=== PATIENT | female | born 1970 | race Caucasian/White ===

== ENCOUNTER 2021-01-25 14:47 | Outpatient (REF) | payer MEDICAID, SELFPAY ==
--- NOTE | ~2021-01-25 | XR_ITS ---
EXAMINATION: XR HIP, LEFT CLINICAL INFORMATION: Pain COMPARISON: None TECHNIQUE: Two views of the left hip. FINDINGS: Bones and soft tissues are normal. No fracture. Alignment is anatomic. Hip joint space is maintained. XR/XR hip LT min 2V IMPRESSION: Normal left hip.
[2021-01-25 16:15] LABS: MANUAL DIFF FLAG NO
[2021-01-25 16:20] LABS: Basophils Percent Auto 0.5 % (0-2); Eosinophils Percent Auto 0.4 % (0-4); Hematocrit 40.7 % (37-47); Hemoglobin 13.7 g/dl (12.0-16.0); Imm Gran Abs Auto 0.01 X10*3/uL (0.00-0.03); Imm Gran Pct Auto 0.1 % (0.0-0.4); Lymphocytes Absolute Auto 1.4 X10*3/uL (1.2-4.9); Lymphocytes Percent Auto 18.3 % (20-40); Mean Corpuscular HGB Conc 33.7 g/dl (31.0-35.0); Mean Corpuscular Hemoglobin 36.2 pg (27.0-33.0); Mean Corpuscular Volume 107.7 fL (80-98); Mean Platelet Volume 10.8 fL (9.4-12.3); Monocytes Absolute Auto 0.9 X10*3/uL (0.1-1.2); Monocytes Percent Auto 11.4 % (2-11); Neutrophils Absolute Auto 5.4 X10*3/uL (2.0-8.3); Neutrophils Percent Auto 69.3 % (45-73); Platelet Count 300 X10*3/uL (160-400); Red Blood Count 3.78 X10*6/uL (4.20-5.50); Red Cell Distribution Width 12.8 % (11.0-16.0); White Blood Count 7.7 X10*3/uL (4.8-10.8)
[2021-01-25 16:31] LABS: Estimated Average Glucose 82 mg/dL; Hemoglobin A1c % 4.5 %
[2021-01-25 16:53] LABS: Alanine Aminotransferase 33 U/L (0-31); Albumin Level 4.2 g/dL (3.5-5.0); Alkaline Phosphatase 50 U/L (39-117); Anion Gap 17 (12-20); Aspartate Amino Transferase 45 U/L (5-31); Bilirubin Direct 0.4 mg/dL (0.0-0.5); Bilirubin Total 0.7 mg/dL (0.0-1.0); Blood Urea Nitrogen 5 mg/dL (9-16); Calcium 10.1 mg/dL (8.4-10.2); Carbon Dioxide 25 mmol/L (22-29); Chloride 98 mmol/L (96-108); Estimated Glomerular Filt Rate > 60; Glucose Random 96 mg/dL (60-115); Potassium 4.5 mmol/L (3.3-5.1); Sodium 135 mmol/L (135-145); Total Protein 7.2 g/dL (6.5-8.0)
[2021-01-25 17:07] LABS: TSH reflex Free T4 1.26 uIU/mL (0.32-4.0); Vitamin D 25-OH Total 14.3 ng/mL (>30)
== END 2021-01-25 14:48 | disposition home or self-care (01) ==
LOC: HO.XRAY 14:47
PROVIDERS: PCP Internal Medicine; Visit Provider Internal Medicine
DX: Z00.00 Encounter for general adult medical examination without abnormal findings (principal); M25.552 Pain in left hip
CPT/HCPCS: 36415; 73502; 80048; 80076; 82306; 83036; 84443; 85025

== ENCOUNTER 2021-02-21 09:08 | Outpatient (REF) | payer MEDICAID, SELFPAY ==
--- NOTE | ~2021-02-21 | US_ITS ---
EXAMINATION: US ABDOMEN COMPLETE CLINICAL INFORMATION: Fatty liver. COMPARISON: None TECHNIQUE: Real-time imaging of the abdominal viscera. FINDINGS: PANCREAS: The visualized portion of the pancreas head and body are normal, portion of the pancreatic body and tail, not visualized are obscured by bowel gas. ABDOMINAL AORTA: The proximal, mid, and distal segments are normal in caliber. INFERIOR VENA CAVA: Visualized portions are normal. LIVER: Diffusely echogenic liver suggesting hepatic steatosis. The liver is normal in size. The liver contour is normal. No focal hepatic lesion. There is no intrahepatic biliary duct dilatation seen. GALLBLADDER: Normal. The gallbladder is physiologically distended without evidence of stones, sludge, polyps, wall thickening or pericholecystic fluid. COMMON BILE DUCT: Normal in caliber measuring 0.3 cm in diameter. RIGHT KIDNEY: Normal. No hydronephrosis. No renal calculi or focal parenchymal lesions. The kidney measures 10.0 cm in maximum dimension. LEFT KIDNEY: Normal. No hydronephrosis. No renal calculi or focal parenchymal lesions. The kidney measures 10.3 cm in maximum dimension. SPLEEN: Normal. The spleen measures 6.8 cm in maximum dimension. FREE FLUID: None. US/US abdomen complete IMPRESSION: Diffusely echogenic liver suggesting hepatic steatosis. Ultrasound otherwise normal. No evidence of gallbladder disease or gallstones. No ascites.
== END 2021-02-21 09:09 | disposition home or self-care (01) ==
LOC: HO.US 09:08
PROVIDERS: Visit Provider Internal Medicine
DX: K76.0 Fatty (change of) liver, not elsewhere classified (principal)
CPT/HCPCS: 76700

== ENCOUNTER 2023-04-18 12:28 | Inpatient (IN) | payer MEDICAID, SELFPAY ==
--- NOTE | ~2023-04-18 | XR_ITS ---
EXAMINATION: XR CHEST CLINICAL INFORMATION: Aspiration pneumonia. COMPARISON: 04/18/2023 chest radiograph. TECHNIQUE: Frontal view of the chest was obtained. FINDINGS: No significant abnormality is noted involving the heart, lungs, mediastinum, bony thorax or soft tissues. XR/XR chest 1V IMPRESSION: No acute cardiopulmonary process.
--- NOTE | ~2023-04-18 | XR_ITS ---
EXAMINATION: XR CHEST CLINICAL INFORMATION: Fatigue. COMPARISON: None available. TECHNIQUE: Frontal view of the chest was obtained. FINDINGS: Normal appearance of the cardiomediastinal silhouette. Left basilar airspace opacities with trace amount of left-sided pleural fluid. No pneumothorax. Bony thorax is intact. XR/XR chest 1V IMPRESSION: Findings suggesting left lower lobe subsegmental atelectasis versus aspiration or early infiltrates. Trace amount of left-sided pleural fluid. A follow-up imaging after treatment is recommended to ensure appropriate resolution.
--- NOTE | ~2023-04-18 | US_ITS ---
EXAMINATION: US SURVEY ABDOMEN CLINICAL INFORMATION: Evaluate for ascites. COMPARISON: None TECHNIQUE: Garcia-scale ultrasound survey of abdomen. US/US abdomen limited FINDINGS/IMPRESSION: Moderate volume of ascites present. Fluid is anechoic.
--- NOTE | ~2023-04-18 | US_ITS ---
EXAMINATION: US ABDOMEN LIMITED CLINICAL INFORMATION: Jaundice. COMPARISON: February 2021 TECHNIQUE: Real-time imaging of the right upper quadrant abdominal viscera. FINDINGS: LIVER: The liver is enlarged, Increased echogenicity of the liver parenchyma, this can be seen in the setting of hepatic steatosis or liver parenchymal disease. There is reversed flow hepatofugal flow in the portal vein suggesting underlying portal hypertension. GALLBLADDER: Normal. The gallbladder is physiologically distended, there are no bladder sludge, without evidence of stones, polyps, wall thickening or pericholecystic fluid. COMMON BILE DUCT: Normal in caliber measuring 1 cm in diameter. FREE FLUID: None. US/US abdomen limited IMPRESSION: *Hepatomegaly. *Increased echogenicity of the liver parenchyma, this can be seen in the setting of hepatic steatosis or liver parenchymal disease. *Reversed flow in the portal vein hepatofugal flow, suggesting portal hypertension. *Gallbladder sludge.
--- NOTE | ~2023-04-18 | US_ITS ---
Paracentesis INDICATIONS: Recurrent ascites After informed written consent was obtained an official timeout was performed immediately prior to the procedure. PROCEDURE: Under ultrasound guidance a 5 [place] Yueh catheter was placed into the left lower quadrant. 3 L of clear fluid was drained. US/US paracentesis abd w/image IMPRESSION: Paracentesis under ultrasound guidance with 3 L of fluid drained
--- NOTE | ~2023-04-18 | XR_ITS ---
EXAMINATION: XR CHEST CLINICAL INFORMATION: Fever. History of aspiration. COMPARISON: Previous chest x-ray most recent from earlier the same day TECHNIQUE: Frontal view of the chest was obtained. FINDINGS: The cardiac and mediastinal contours are stable. The lung volumes are low. There is atelectasis or small infiltrates at both lung bases. There may be a small left pleural effusion. There is no right pleural effusion. There is no pneumothorax. XR/XR chest 1V IMPRESSION: Low lung volumes. Atelectasis or small infiltrates at the lung bases. Question small left pleural effusion.
[2023-04-18 12:31] VITALS: BP 106/72; PULSE 95; RESP 18; TEMP 36.8; O2SAT 99; BMI 23.7
--- NOTE | 2023-04-18 12:32 | ED.GENADULT ---
HPI - General Adult General Chief complaint: Abdominal Pain Stated complaint: bloating in abd Time Seen by Provider: 04/18/23 17:28 Source: patient and family Mode of arrival: ambulatory Limitations: no limitations History of Present Illness HPI narrative: 52 yo female stopped drinking 2 weeks ago and at the same time states she suffered from heat exhaustion - she started to develop abdominal bloating and yellowing of her eyes that has worsened. she no longer drinks, no tylenol and no other ingestions such as mushroom use. she comes in as she has worsening abdominal bloating and cannot take the pain any longer of the abdomen. she has never had this happen before she was drinking up to 5+ nips a day denies seizure hx or shaking in the past. MD complaint: bloating, jaundice Onset (ago): week(s) (2) Location: abdomen Radiation: non-radiation Severity: moderate Quality: aching, dull and constant Pain Consistency: constant Relieving factors: none Exacerbating factors: movement Associated symptoms: other (nausea and malaise) Treatments prior to arrival: none Related Data Home Medications Medication Instructions Recorded Confirmed No Known Home Meds 04/18/23 04/18/23 Allergies Allergy/AdvReac Type Severity Reaction Status Date / Time No Known Allergies Allergy Verified 04/18/23 12:36 Review of Systems Review of Systems: Constitutional : No Weight loss, No Fever, No Chills, pos fatigue, pos malaise ENT/Mouth : No sore throat, No Rhinorrhea Eyes: No Swelling, No Redness Cardiovascular : No Chest Pain, No SOB, NoEdema Respiratory : No Cough, No Sputum, No Wheezing Gastrointestinal : Positive Nausea, no Vomiting, no Diarrhea, positive abdominal Pain, No Hematochezia, No Melena Genitourinary : No Dysuria, No Urinary Frequency, No Hematuria, No Urgency Musculoskeletal : No joint pain, No Myalgias, No Joint Swelling Skin : No Skin Lesions, No rash Neuro : No Weakness, No Numbness, No Dizziness, No Headache Psych : No Anxiety/Panic, No Depression Heme/Lymph: No Bruising, No Lymphadenopathy Endocrine : No Polyuria, No Polydipsia All other systems reviewed and are negative. [facility] Past Medical History Attestation statement: The following information was validated with the patient. Medical History Alcoholism Social History Social History Alcohol intake: former Smoked in Last 30 Days: No Use of substances other than those prescribed or required for medical reasons: No Advance Directives: No Advance Directives Information Provided: No Patient : No Physical Exam ED Vital Signs: Vital Signs - 24 hr 04/18/23 12:31 04/18/23 17:14 04/18/23 20:00 Temperature 98.3 F 98.7 F 99.3 F Pulse Rate 95 99 101 H Respiratory Rate 18 18 18 Blood Pressure 106/72 109/80 104/73 Pulse Oximetry 99 94 93 Oxygen Delivery Method Room Air Room Air Room Air BMI result Body Mass Index 23.7 Appearance: Alert. Oriented X3. No acute distress. Eyes: Pupils equal, round and reactive to light. scleral icterus ENT: Pharynx normal. Neck: Normal inspection. Neck supple. CVS: Normal heart rate and rhythm. Pulses normal. Respiratory: No respiratory distress. Breath sounds normal. Abdomen: Soft and non tender but has ascites - moderate noted Skin: Skin warm and dry. Normal skin color. Normal skin turgor. jaundice noted Extremities: 1+ pitting lower extremity edema. No calf ttp Neuro: Oriented X 3. No motor deficit. No sensory deficit. Course Course Course Narrative: This is a rapid medical exam: Additional HPI, ROS, PE not included below will be deferred to primary provider. Patient is a 52-year-old female presenting to the emergency department with complaint of abdominal pain and bloating, lower extremity edema for the past 2 weeks. Dyspnea on exertion. Stating that she quit using cigarettes and alcohol a few weeks ago. States has not seen a provider in years. Appears jaundiced, abdomen distended, diffusely tender. Also reporting left ear pain for the past year with associated vertigo. Plan: labs, UA Reevaluation(s) Reevaluation #1: at this time possible infection suspected I am going to start on ceftriaxone empirically 2G and obtain diagnostic paracentesis 1854 unable to obtain paracentesis no fluid on US Reevaluation #2: lactic acid slightly bumped 500cc of fluid ordered Medications Administered Generic Name Dose Route Start Last Admin Trade Name Freq PRN Reason Stop Dose Admin Enoxaparin Sodium 40 mg 04/18/23 23:00 04/18/23 22:47 Enoxaparin Sodium 40 Mg/0.4 Ml Syringe SUBCUT 40 mg Q24H KATE Administration Sodium Chloride 3 ml 04/19/23 00:00 04/18/23 23:34 0.9 % Sodium Chloride Flush 3 Ml Syringe IVFLUSH 3 ml QSHIFT KATE Administration Discontinued Medications Generic Name Dose Route Start Last Admin Trade Name Kylah PRN Reason Stop Dose Admin Magnesium Sulfate 2 gm in 50 mls @ 25 mls/hr 04/18/23 17:45 04/18/23 20:58 Magnesium Sulfate/H2o IV 04/18/23 19:44 Infused ONCE ONE Infusion Thiamine HCl 200 mg/ Sodium 102 mls @ 204 mls/hr 04/18/23 17:47 04/18/23 20:09 Chloride IV 04/18/23 18:16 Infused ONCE ONE Infusion Ceftriaxone Sodium 2 gm/ 50 mls @ 100 mls/hr 04/18/23 18:55 04/18/23 20:09 Sodium Chloride IV 04/18/23 19:24 Infused ONCE ONE Infusion Sodium Chloride 500 mls @ 500 mls/hr 04/18/23 20:00 04/18/23 21:44 Ns IV 04/18/23 20:59 Infused .Q1H KATE Infusion Lorazepam 0.5 mg 04/18/23 22:37 04/18/23 22:46 Lorazepam 0.5 Mg Tablet PO 04/18/23 22:38 0.5 mg ONCE ONE Administration Potassium Chloride 40 meq 04/18/23 17:37 04/18/23 18:37 Potassium Chloride Er 20 Meq Tab.Er.Prt PO 04/18/23 17:38 40 meq ONCE ONE Administration Medical Decision Making Medical Decision Making MDM Narrative: 52 yo female with PMH of alcohol abuse here after no ETOH x 2 weeks now with ascites and jaundice without any other APAP or mushroom use she has an elevated WBC count and low K low Na - I am going to obtain US to look for obstructive stone/lesion and to assess the PV. she has no fevers and it has been 2 weeks SBP seems less likely but will obtain diagnostic tap if amenable pocket. Her WBC count is likely due to the alcoholic hepatitis will consult GI. Planned admit. Differential Diagnosis Differential Diagnoses: The differential diagnosis associated with the presentation includes alcoholic hepatitis, choledocholithiasis, biliary obstruction Admission/Observation Consideration of admission/observation: Escalation of care including admission/observation considered plan to admit at this time will hold off paracentesis no free fluid seen on US Consult Healthcare Provider Management of the patient was discussed with: Hospitalist and Building Rental Manager plan to admit spoke to hospitalist Dr. Vega aware - hold steroids, rule out other pathology, no free fluid or ascites on US at this time. Lab Data MDM Lab Attestation statement: I reviewed the patient's lab results. 04/18/23 13:12 04/18/23 13:12 Labs: Lab Results 04/18/23 04/18/23 04/18/23 Range/Units 13:12 13:12 13:12 WBC 26.7 H (4.8-10.8) X10*3/uL RBC 2.40 L (4.20-5.50) X10*6/uL Hgb 8.7 L (12.0-16.0) g/dl Hct 26.9 L (37.0-47.0) % MCV 112.1 H (80.0-98.0) fL MCH 36.3 H (27.0-33.0) pg MCHC 32.3 (31.0-35.0) g/dl RDW 21.9 H (11.0-16.0) % Plt Count 338 (160-400) X10*3/uL MPV 10.9 (9.4-12.3) fL Immature Gran % (Auto) 0.9 H (0.0-0.4) % Neut % (Auto) 85.3 H (45-73) % Lymph % (Auto) 8.0 L (20-40) % Anderson % (Auto) 4.8 (2-11) % Eos % (Auto) 0.5 (0-4) % Baso % (Auto) 0.5 (0-2) % Lymph # (Auto) 2.1 (1.2-4.9) X10*3/uL Anderson # (Auto) 1.3 H (0.1-1.2) X10*3/uL Eos # (Auto) 0.1 (0.0-0.4) X10*3/uL Baso # (Auto) 0.1 (0.0-0.2) X10*3/uL Abs Immat Gran (auto) 0.25 H (0.00-0.03) X10*3/uL Absolute Neuts (auto) 22.7 H (2.0-8.3) x10*3/uL Absolute Nucleated RBC 0.050 H (0.0-0.012) X10*3/uL Nucleated RBC % (auto) 0.2 (0.0-0.2) /100WBC Smear Tech's Comments VERIFIED PT 19.1 H (11.1-13.3) SEC INR 1.6 H (0.9-1.1) APTT 38.0 H (26.0-36.4) SEC Sodium 128 L (135-145) mmol/L Potassium 3.0 L D (3.3-5.1) mmol/L Chloride 88 L (96-108) mmol/L Carbon Dioxide 25 (22-29) mmol/L Anion Gap 18 (12-20) BUN 12 (9-16) mg/dL Creatinine 0.71 (0.5-1.4) mg/dL Estim Creat Clear Calc 78.4 Estimated GFR > 60 Random Glucose 120 H (60-115) mg/dL Lactic Acid (0.5-2.0) mmol/L Lactic Acid F/U @ 2Hr (0.5-2.0) mmol/L Calcium 8.2 L D (8.4-10.2) mg/dL Magnesium 2.0 (1.6-2.6) mg/dL Total Bilirubin 7.9 H (0.0-1.0) mg/dL AST 96 H (5-31) U/L ALT 18 (0-31) U/L Alkaline Phosphatase 212 H (39-117) U/L Total Protein 5.7 L (6.5-8.0) g/dL Albumin 2.5 L (3.5-5.0) g/dL Lipase 31 (8-78) U/L Vitamin B12 Folate Beta HCG, Quant mIU/mL Urine Color Urine Appearance Urine pH (5.0-9.0) Ur Specific [place] (1.005-1.025) Urine Protein (Neg-Trace) mg/dL Urine Glucose (UA) (Negative) mg/dL Urine Ketones (Negative) mg/dL Urine Blood (Negative) Urine Nitrite (Negative) Ur Leukocyte Esterase (Negative) Urine RBC (0-2) /HPF Urine WBC (0-5) /HPF Ur Squamous Epith Cells (0-2) /HPF Urine Bacteria (None Seen) Hyaline Casts (0-2) /LPF 04/18/23 04/18/23 04/18/23 Range/Units 13:12 13:12 17:55 WBC (4.8-10.8) X10*3/uL RBC (4.20-5.50) X10*6/uL Hgb (12.0-16.0) g/dl Hct (37.0-47.0) % MCV (80.0-98.0) fL MCH (27.0-33.0) pg MCHC (31.0-35.0) g/dl RDW (11.0-16.0) % Plt Count (160-400) X10*3/uL MPV (9.4-12.3) fL Immature Gran % (Auto) (0.0-0.4) % Neut % (Auto) (45-73) % Lymph % (Auto) (20-40) % Anderson % (Auto) (2-11) % Eos % (Auto) (0-4) % Baso % (Auto) (0-2) % Lymph # (Auto) (1.2-4.9) X10*3/uL Anderson # (Auto) (0.1-1.2) X10*3/uL Eos # (Auto) (0.0-0.4) X10*3/uL Baso # (Auto) (0.0-0.2) X10*3/uL Abs Immat Gran (auto) (0.00-0.03) X10*3/uL Absolute Neuts (auto) (2.0-8.3) x10*3/uL Absolute Nucleated RBC (0.0-0.012) X10*3/uL Nucleated RBC % (auto) (0.0-0.2) /100WBC Smear Tech's Comments PT (11.1-13.3) SEC INR (0.9-1.1) APTT (26.0-36.4) SEC Sodium (135-145) mmol/L Potassium (3.3-5.1) mmol/L Chloride (96-108) mmol/L Carbon Dioxide (22-29) mmol/L Anion Gap (12-20) BUN (9-16) mg/dL Creatinine (0.5-1.4) mg/dL Estim Creat Clear Calc Estimated GFR Random Glucose (60-115) mg/dL Lactic Acid (0.5-2.0) mmol/L Lactic Acid F/U @ 2Hr (0.5-2.0) mmol/L Calcium (8.4-10.2) mg/dL Magnesium (1.6-2.6) mg/dL Total Bilirubin (0.0-1.0) mg/dL AST (5-31) U/L ALT (0-31) U/L Alkaline Phosphatase (39-117) U/L Total Protein (6.5-8.0) g/dL Albumin (3.5-5.0) g/dL Lipase (8-78) U/L Vitamin B12 Cancelled Folate Cancelled Beta HCG, Quant < 2 mIU/mL Urine Color Dark Yellow Urine Appearance Cloudy Urine pH 5.5 (5.0-9.0) Ur Specific [place] 1.020 (1.005-1.025) Urine Protein Trace (Neg-Trace) mg/dL Urine Glucose (UA) Negative (Negative) mg/dL Urine Ketones Negative (Negative) mg/dL Urine Blood Negative (Negative) Urine Nitrite Positive H (Negative) Ur Leukocyte Esterase Small (1+) H (Negative) Urine RBC 6-10 H (0-2) /HPF Urine WBC 0-5 (0-5) /HPF Ur Squamous Epith Cells 11-20 (0-2) /HPF Urine Bacteria 1+ (None Seen) Hyaline Casts 6-10 (0-2) /LPF 04/18/23 04/18/23 Range/Units 18:19 21:04 WBC (4.8-10.8) X10*3/uL RBC (4.20-5.50) X10*6/uL Hgb (12.0-16.0) g/dl Hct (37.0-47.0) % MCV (80.0-98.0) fL MCH (27.0-33.0) pg MCHC (31.0-35.0) g/dl RDW (11.0-16.0) % Plt Count (160-400) X10*3/uL MPV (9.4-12.3) fL Immature Gran % (Auto) (0.0-0.4) % Neut % (Auto) (45-73) % Lymph % (Auto) (20-40) % Anderson % (Auto) (2-11) % Eos % (Auto) (0-4) % Baso % (Auto) (0-2) % Lymph # (Auto) (1.2-4.9) X10*3/uL Anderson # (Auto) (0.1-1.2) X10*3/uL Eos # (Auto) (0.0-0.4) X10*3/uL Baso # (Auto) (0.0-0.2) X10*3/uL Abs Immat Gran (auto) (0.00-0.03) X10*3/uL Absolute Neuts (auto) (2.0-8.3) x10*3/uL Absolute Nucleated RBC (0.0-0.012) X10*3/uL Nucleated RBC % (auto) (0.0-0.2) /100WBC Smear Tech's Comments PT (11.1-13.3) SEC INR (0.9-1.1) APTT (26.0-36.4) SEC Sodium (135-145) mmol/L Potassium (3.3-5.1) mmol/L Chloride (96-108) mmol/L Carbon Dioxide (22-29) mmol/L Anion Gap (12-20) BUN (9-16) mg/dL Creatinine (0.5-1.4) mg/dL Estim Creat Clear Calc Estimated GFR Random Glucose (60-115) mg/dL Lactic Acid 2.2 H* (0.5-2.0) mmol/L Lactic Acid F/U @ 2Hr 1.9 (0.5-2.0) mmol/L Calcium (8.4-10.2) mg/dL Magnesium (1.6-2.6) mg/dL Total Bilirubin (0.0-1.0) mg/dL AST (5-31) U/L ALT (0-31) U/L Alkaline Phosphatase (39-117) U/L Total Protein (6.5-8.0) g/dL Albumin (3.5-5.0) g/dL Lipase (8-78) U/L Vitamin B12 Folate Beta HCG, Quant mIU/mL Urine Color Urine Appearance Urine pH (5.0-9.0) Ur Specific [place] (1.005-1.025) Urine Protein (Neg-Trace) mg/dL Urine Glucose (UA) (Negative) mg/dL Urine Ketones (Negative) mg/dL Urine Blood (Negative) Urine Nitrite (Negative) Ur Leukocyte Esterase (Negative) Urine RBC (0-2) /HPF Urine WBC (0-5) /HPF Ur Squamous Epith Cells (0-2) /HPF Urine Bacteria (None Seen) Hyaline Casts (0-2) /LPF Independent Interpretation I performed an independent interpretation of an: Plain X-Ray (reported possible pneumonia no clinical signs to correlate) and Ultrasound Interpretation: hepatocellular disease Radiology Impression Discussion of test interpretation with radiology: I have reviewed the radiologist's reading. Independent Historian Clinical information obtained from an independent historian. History obtained from or confirmed by: Spouse External Record Review External record reviewed: Inpatient record and Prior outpatient labs Discharge Plan Discharge Clinical Impression: Leukocytosis, Elevated bilirubin, Acute alcoholic hepatitis, Acute hypokalemia Patient Disposition: Admitted As Inpatient
[2023-04-18 13:17] LABS: Basophils Absolute Auto 0.1 X10*3/uL (0.0-0.2); Basophils Percent Auto 0.5 % (0-2); Eosinophils Absolute Auto 0.1 X10*3/uL (0.0-0.4); Eosinophils Percent Auto 0.5 % (0-4); Hematocrit 26.9 % (37.0-47.0); Hemoglobin 8.7 g/dl (12.0-16.0); Imm Gran Abs Auto 0.25 X10*3/uL (0.00-0.03); Imm Gran Pct Auto 0.9 % (0.0-0.4); Lymphocytes Absolute Auto 2.1 X10*3/uL (1.2-4.9); MANUAL DIFF FLAG SCAN; Mean Corpuscular HGB Conc 32.3 g/dl (31.0-35.0); Mean Corpuscular Hemoglobin 36.3 pg (27.0-33.0); Mean Platelet Volume 10.9 fL (9.4-12.3); Monocytes Absolute Auto 1.3 X10*3/uL (0.1-1.2); Monocytes Percent Auto 4.8 % (2-11); NRBC Pct Auto 0.2 /100WBC (0.0-0.2); Neutrophils Absolute Auto 22.7 x10*3/uL (2.0-8.3); Neutrophils Percent Auto 85.3 % (45-73); Platelet Count 338 X10*3/uL (160-400); Red Cell Distribution Width 21.9 % (11.0-16.0); SCAN SMEAR FLAG 1; White Blood Count 26.7 X10*3/uL (4.8-10.8)
[2023-04-18 13:18] LABS: Mean Corpuscular Volume 112.1 fL (80.0-98.0)
[2023-04-18 13:23] LABS: INTERNATIONAL NORM RATIO 1.6 (0.9-1.1); Prothrombin Time 19.1 SEC (11.1-13.3)
[2023-04-18 13:33] LABS: Alanine Aminotransferase 18 U/L (0-31); Albumin Level 2.5 g/dL (3.5-5.0); Alkaline Phosphatase 212 U/L (39-117); Anion Gap 18 (12-20); Aspartate Amino Transferase 96 U/L (5-31); Bilirubin Total 7.9 mg/dL (0.0-1.0); Blood Urea Nitrogen 12 mg/dL (9-16); Calcium 8.2 mg/dL (8.4-10.2); Carbon Dioxide 25 mmol/L (22-29); Chloride 88 mmol/L (96-108); Creatinine Clr Calc Pharmacy 78.4; Estimated Glomerular Filt Rate > 60; Glucose Random 120 mg/dL (60-115); Lipase 31 U/L (8-78); Sodium 128 mmol/L (135-145); Total Protein 5.7 g/dL (6.5-8.0)
[2023-04-18 13:44] LABS: HCG Quantitative < 2 mIU/mL
[2023-04-18 14:09] LABS: SLIDE REVIEW VERIFIED
[2023-04-18 17:14] VITALS: BP 109/80; PULSE 99; RESP 18; TEMP 37.1; O2SAT 94
--- NOTE | 2023-04-18 17:55 | PC.NURSE ---
pt a&ox3, vss, pt coming in presenting with jaundice of the skin and jaundice in sclera bilaterally. 3+ edema noted in the LE bilaterally. pt verbalizing no pain but more discomfort throughout. urine samples obtained and sent to lab. imaging services bedside.
--- NOTE | 2023-04-18 18:24 | PC.NURSE ---
22gIV placed in the right AC without complications. labs drawn and sent to lab.
[2023-04-18 18:35] LABS: Appearance Urine Cloudy; Color Urine Dark Yellow; Glucose Urine UA Negative (Negative); Leukocyte Esterase Urine Small (1+) (Negative); Nitrite Urine Positive (Negative); PH 5.5 (5.0-9.0); UMIC TRIGGER UACC YES; Urine Blood Negative (Negative); Urine Ketones Negative (Negative); Urine Protein Trace mg/dL (Neg-Trace)
[2023-04-18] MEDS: Potassium Chloride ER 20 MEQ TAB.ER.PRT 40 MEQ PO (18:37)
[2023-04-18 18:47] LABS: Lactic Acid 2.2 mmol/L (0.5-2.0)
[2023-04-18] MEDS: Thiamine HCL 200 MG in 0.9 % Sodium Chloride 100 ML 204 MG IV (18:54)
[2023-04-18] MEDS: Magnesium Sulfate/H2O 2 GM/50 ML PIGGYBACK IV (18:55)
[2023-04-18] MEDS: cefTRIAXone sodium 2 GM in 0.9 % Sodium Chloride 50 ML IV (19:14)
--- NOTE | 2023-04-18 19:20 | PC.NURSE ---
22gIV placed in the left AC w/o complications - medications administered per provider order.
[2023-04-18 20:00] VITALS: BP 104/73; PULSE 101; RESP 18; TEMP 37.4; O2SAT 93
--- NOTE | 2023-04-18 20:08 | PHA.MEDREC ---
Pharmacy Consult ? Medication Reconciliation Pharmacy has completed the medication reconciliation. Patient reported no prescription or OTC medications at home. Patient report she takes herbal and homopathetic meds. Marlen Camacho, ConchitaD
[2023-04-18] MEDS: 0.9 % Sodium Chloride 500 ML IV (20:12)
[2023-04-18 20:15] LABS: Bacteria Urine 1+ (None Seen); UACC Culture Trigger YES; WBC Urine 0-5 /HPF (0-5)
[2023-04-18 20:22] LABS: Reflex Lactate? Lactic Acid Added
[2023-04-18 21:36] LABS: ~Lactic Acid-LAB USE ONLY 1.9 mmol/L (0.5-2.0)
--- NOTE | 2023-04-18 21:42 | PM.IMHP ---
History of Present Illness Date of Service: 04/18/23 Attending physician on admission: Ariella Burr Chief Complaint: Abdominal pain and bloating Pt is a 52-year-old female with a PMH significant for?alcohol use disorder not on home meds who presents to the ED with?jaundice and increasing abdominal swelling and pain for the past 2 weeks. Patient has a long history of heavy alcohol use of up to 5+ alcoholic drinks per day. Patient states she stopped drinking 2 weeks ago when she began experiencing increasing abdominal bloating and pain, and her friends noticed her skin was turning yellow. Patient states the pain felt like a knife being thrust into her side. Says she initially thought that it was gas and that it would just go away. Patient also notes increased swelling in her ankles and legs. Patient denies ever experiencing withdrawal symptoms or needing to drink early in the day to prevent shaking. She reports quitting smoking at the same time. She also states she has experienced chronic cramps in her calves bilaterally and difficulty walking without assistance for the past 3 years. Patient has been having difficulties with her PCP who she does not like and has not yet been to physical therapy for treatment. Patient denies dysuria or polyuria. Denies cough, shortness of breath, fever, chills, nausea. In the ED patient was afebrile, but tachycardic up to 101. Labs were significant for leukocytosis of 26.7, H&H of 8.7 of 26.9, MCV 112.1, hyponatremia of 128, hypokalemia of 3.0, chloride of 88, lactic acid of 2.2 with repeat 1.9, bilirubin 7.9, AST 96, alk-phos 212, albumin 2.5. Kidney function baseline. UA questionable for UTI: Positive for nitrites, leukocyte esterase, rbc's, and 1+ bacteria with 11-20 epitehlial cells. CXR showed findings suggestive of left lower lobe subsegmental atelectasis versus aspiration or early infiltrates with trace left-sided pleural fluid. Abdominal ultrasound showed hepatomegaly with increased echogenicity of liver parenchyma possibly hepatic steatosis or liver parenchymal disease, also showed reversed flow in portal vein suggesting portal hypertension. Pt was treated with IVF, thiamine, magnesium sulfate, potassium choloride, and ceftriaxone. Pt will be admitted to the hospital for treatment further evaluation of acute alcoholic hepatitis. Review of Systems Review of Systems: Abdominal pain and swelling Jaundice Generalized lower leg weakness, ataxia Bilateral calf pain Denies dysuria, polyuria No shortness of breath, cough Yes all other systems are reviewed and are negative FOR[facility]LY [facility] Medical History Alcoholism Social History Alcohol intake: former Smoked in Last 30 Days: No Use of substances other than those prescribed or required for medical reasons: No Advance Directives: No Advance Directives Information Provided: No Patient : No Meds Allergies Allergy/AdvReac Type Severity Reaction Status Date / Time No Known Allergies Allergy Verified 04/18/23 12:36 Home Medications Medication Instructions Recorded Confirmed Last Taken Type No Known Home Meds 04/18/23 04/18/23 Unknown History Physical Exam Vital Signs and Narrative: Vital Signs: Last Vital Signs Temp 99.3 F 04/18/23 20:00 Pulse 101 H 04/18/23 20:00 Resp 18 04/18/23 20:00 BP 104/73 04/18/23 20:00 Pulse Ox 93 04/18/23 20:00 O2 Del Method Room Air 04/18/23 20:00 BMI result Body Mass Index 23.7 Constitutional: Alert, uncomfortable looking, in no acute distress. Mental Status: Oriented to person, place and time. Eyes: Pupils are equal, round, and reactive to light. Sclera icteric Ear, Nose, and Throat: Oropharynx clear, mucous membranes moist. Ears and nose without deformities. Trachea midline. Respiratory: Clear to auscultation bilaterally. No wheezing, rales, or rhonchi. Cardiovascular: S1, S2 regular. No murmurs, rubs, or gallops. Gastrointestinal: Abdomen firm, distended, nontender. Normal bowel sounds. Neurologic: Cranial nerves II-XII are grossly intact bilaterally. No focal neurological deficits. Moves all extremities spontaneously. Skin: No rashes or lesions noted. Jaundice. Musculoskeletal: No cyanosis or clubbing. Generalized weakness Extremities: 1+ pitting lower leg edema bilaterally. Psychiatric: Normal mood and affect. Results Labs 04/18/23 13:12 04/18/23 13:12 Labs: Laboratory Results - last 24 hr 04/18/23 04/18/23 04/18/23 13:12 13:12 13:12 MCV 112.1 H MCH 36.3 H MCHC 32.3 RDW 21.9 H Plt Count 338 MPV 10.9 Immature Gran % (Auto) 0.9 H Neut % (Auto) 85.3 H Lymph % (Auto) 8.0 L [place] % (Auto) 4.8 Eos % (Auto) 0.5 Baso % (Auto) 0.5 Lymph # (Auto) 2.1 [place] # (Auto) 1.3 H Eos # (Auto) 0.1 Baso # (Auto) 0.1 Abs Immat Gran (auto) 0.25 H Absolute Neuts (auto) 22.7 H Absolute Nucleated RBC 0.050 H Nucleated RBC % (auto) 0.2 Smear Tech's Comments VERIFIED PT 19.1 H INR 1.6 H APTT 38.0 H Anion Gap 18 Estim Creat Clear Calc 78.4 Estimated GFR > 60 Random Glucose 120 H Lactic Acid Lactic Acid F/U @ 2Hr Calcium 8.2 L D Magnesium 2.0 Total Bilirubin 7.9 H AST 96 H ALT 18 Alkaline Phosphatase 212 H Total Protein 5.7 L Albumin 2.5 L Lipase 31 Beta HCG, Quant Urine Color Urine Appearance Urine pH Ur Specific [place] Urine Protein Urine Glucose (UA) Urine Ketones Urine Blood Urine Nitrite Ur Leukocyte Esterase Urine RBC Urine WBC Ur Squamous Epith Cells Urine Bacteria Hyaline Casts 04/18/23 04/18/23 04/18/23 13:12 17:55 18:19 MCV MCH MCHC RDW Plt Count MPV Immature Gran % (Auto) Neut % (Auto) Lymph % (Auto) [place] % (Auto) Eos % (Auto) Baso % (Auto) Lymph # (Auto) [place] # (Auto) Eos # (Auto) Baso # (Auto) Abs Immat Gran (auto) Absolute Neuts (auto) Absolute Nucleated RBC Nucleated RBC % (auto) Smear Tech's Comments PT INR APTT Anion Gap Estim Creat Clear Calc Estimated GFR Random Glucose Lactic Acid 2.2 H* Lactic Acid F/U @ 2Hr Calcium Magnesium Total Bilirubin AST ALT Alkaline Phosphatase Total Protein Albumin Lipase Beta HCG, Quant < 2 Urine Color Dark Yellow Urine Appearance Cloudy Urine pH 5.5 Ur Specific [place] 1.020 Urine Protein Trace Urine Glucose (UA) Negative Urine Ketones Negative Urine Blood Negative Urine Nitrite Positive H Ur Leukocyte Esterase Small (1+) H Urine RBC 6-10 H Urine WBC 0-5 Ur Squamous Epith Cells 11-20 Urine Bacteria 1+ Hyaline Casts 6-10 04/18/23 21:04 MCV MCH MCHC RDW Plt Count MPV Immature Gran % (Auto) Neut % (Auto) Lymph % (Auto) [place] % (Auto) Eos % (Auto) Baso % (Auto) Lymph # (Auto) [place] # (Auto) Eos # (Auto) Baso # (Auto) Abs Immat Gran (auto) Absolute Neuts (auto) Absolute Nucleated RBC Nucleated RBC % (auto) Smear Tech's Comments PT INR APTT Anion Gap Estim Creat Clear Calc Estimated GFR Random Glucose Lactic Acid Lactic Acid F/U @ 2Hr 1.9 Calcium Magnesium Total Bilirubin AST ALT Alkaline Phosphatase Total Protein Albumin Lipase Beta HCG, Quant Urine Color Urine Appearance Urine pH Ur Specific [place] Urine Protein Urine Glucose (UA) Urine Ketones Urine Blood Urine Nitrite Ur Leukocyte Esterase Urine RBC Urine WBC Ur Squamous Epith Cells Urine Bacteria Hyaline Casts Imaging Radiologist's Impressions: Impressions Abdomen Ultrasound 04/18/23 18:05 IMPRESSION: *Hepatomegaly. *Increased echogenicity of the liver parenchyma, this can be seen in the setting of hepatic steatosis or liver parenchymal disease. *Reversed flow in the portal vein hepatofugal flow, suggesting portal hypertension. *Gallbladder sludge. Chest X-Ray 04/18/23 19:50 IMPRESSION: Findings suggesting left lower lobe subsegmental atelectasis versus aspiration or early infiltrates. Trace amount of left-sided pleural fluid. A follow-up imaging after treatment is recommended to ensure appropriate resolution. Assessment and Plan (1) Acute alcoholic hepatitis: Status: Acute Plan Acute alcoholic hepatitis Bilirubin 7.9, AST 96, alk-phos 212, abdominal ultrasound showed hepatomegaly with likely hepatic steatosis with liver parenchymal disease and portal hypertension Likely secondary to chronic alcohol use disorder GI consulted, suggested holding off on steroids until they evaluate tomorrow Plan as per GI Folic acid, thiamine, multivitamin Will check lipid panel Follow CMP Leukocytosis WBC 26.7 at time of presentation Patient technically meets sepsis criteria: WBC, tachycardia, lactic acid No clear source of infection: UA questionable for UTI, CXR questionable for aspiration, CT of abdomen pelvis negative for infection, no sign of cellulitis, patient afebrile and asymptomatic for UTI or pneumonia Patient empirically given ceftriaxone in ED, started 04/18/2023 Patient given IVF in ED Leukocytosis could be reactionary Re-evaluate tomorrow for need for continued antibiotics Follow CBC Question of UTI Urine positive for nitrites, small amount of leukocyte esterase, RBC 6-10, and 1+ bacteria UA shows normal WBC and 11-20 epithelial cells, question of contamination Patient asymptomatic: No dysuria, polyuria Patient given ceftriaxone in the ED, started 04/18/2023 Follow cultures Question of aspiration pneumonia CXR with findings suggestive of left lower lobe subsegmental atelectasis versus aspiration/early infiltrates Patient asymptomatic: Denies vomiting, no cough, no shortness of breath, lungs CTA Monitor respiratory status Lactic acidosis, resolved Lactic acid 2.2 with repeat 1.9 Patient given IVF in ED Macrocytic anemia Patient's H&H 8.7/26.9 with MCV 112.1 Will check vitamin B12 folate Will give thiamine, folic acid, multivitamin Hyponatremia Patient's sodium 128 at time of presentation Patient given IVF in ED Follow BMP Hypokalemia Patient's potassium 3.0 at time of presentation Patient given potassium chloride 40 mEq in ED Follow BMP Ataxia Pt states she has had difficulty walking without assistance for past 3 years Possibly secondary to alcohol use disorder Will get PT evaluation Full Code Attending:?Dr. Burr DVT Prophylaxis: Lovenox Pt will require a hospitalization of at least two nights for treatment of acute alcoholic hepatitis. Time Spent With Patient Time: Total time managing care of this patient today ____ minutes. Quality Stroke Does the patient have a stroke diagnosis?: No VTE Prior VTE?: No VTE Risk Level:: Medical - moderate - high VTE Device Contraindication: Treatment Not Indicated VTE Drug Contraindication: N/A - Med Ordered
[2023-04-18] MEDS: LORazepam 0.5 MG TABLET PO (22:46)
[2023-04-18] MEDS: Enoxaparin Sodium 40 MG/0.4 ML SYRINGE SUBCUT (22:47)
[2023-04-18 23:34] VITALS: BP 94/68; PULSE 115; RESP 16; TEMP 37.4; O2SAT 92
[2023-04-18] MEDS: 0.9 % Sodium Chloride Flush 3 ML SYRINGE IVFLUSH (23:34)
[2023-04-19] VITALS (7 sets, daily range): BP systolic 88–115; BP diastolic 55–80; PULSE 87–112; RESP 16–20; TEMP 36.5–37.2; O2SAT 91–95
[2023-04-19] MEDS: LORazepam 1 MG TABLET PO (03:32)
--- NOTE | 2023-04-19 04:40 | PC.NURSE ---
At approximately 0400, pt requested to go to the bathroom. Pt requested a wheelchair, as she felt weak. Tech AJ brought pt to bathroom, assisted her to the toilet, and informed the patient to let her know when she is done so AJ can assist her off the toilet. AJ stood directly outside of the bathroom, waiting for pt. Pt took several minutes, AJ asked if she was okay, pt responded positively, then a thud was heard. AJ opened the door to find pt on the floor. Pt stated she stood up to wash her hands, got an episode of vertigo, and fell into the wall. This RN entered the bathroom and assessed the pt. Pt right shoulder and elbow struck the wall, causing superficial abrasions to the elbow. Pt states she may have bumped her head on the left side, but is not certain. Pt also stated it felt like her organs dropped and that it feels like there are knives in her abdomen. This feeling was present prior to fall. No other injuries noted, no loss of consciousness, pt is at baseline mentation, and vital signs stable. Pt was assisted back into wheelchair by 2 assist and brought back to her room. Pt was assisted back to bed, call jackson placed within reach, bed lowered to the lowest position, and ensured pt comfort. dining room tables set up attendant and MD copeland.
[2023-04-19 05:44] LABS: Hematocrit 23.6 % (37.0-47.0); Hemoglobin 7.9 g/dl (12.0-16.0); Mean Corpuscular HGB Conc 33.5 g/dl (31.0-35.0); Mean Corpuscular Hemoglobin 37.1 pg (27.0-33.0); Mean Corpuscular Volume 110.8 fL (80.0-98.0); Mean Platelet Volume 11.4 fL (9.4-12.3); NRBC Pct Auto 0.1 /100WBC (0.0-0.2); Platelet Count 338 X10*3/uL (160-400); Red Blood Count 2.13 X10*6/uL (4.20-5.50); Red Cell Distribution Width 21.2 % (11.0-16.0); White Blood Count 26.9 X10*3/uL (4.8-10.8)
--- NOTE | 2023-04-19 05:51 | PC.NURSE ---
While pt asleep, O2 noted to be low into the 80's, pt was placed on 2 LPM O2 via Nasal Cannula, O2 improved. aware.
[2023-04-19 06:03] LABS: Cholesterol 194 mg/dL; HDL Cholesterol 8 mg/dL; LDL Cholesterol Calculated 153 mg/dl; Triglycerides 168 mg/dL
[2023-04-19] MEDS: cefTRIAXone sodium 1 GM in 0.9 % Sodium Chloride 50 ML IV (08:26)
[2023-04-19] MEDS: Thiamine HCL 100 MG TABLET PO (08:29)
[2023-04-19] MEDS: Multivitamin TABLET 1 TAB PO (08:29)
[2023-04-19] MEDS: 0.9 % Sodium Chloride Flush 3 ML SYRINGE IVFLUSH ×3 (08:29→22:16)
[2023-04-19] MEDS: Folic Acid 1 MG TABLET PO (08:29)
--- NOTE | 2023-04-19 08:46 | PM.EVENT ---
Event Note Date of Service: 04/19/23 Event Note: Full consultation to follow. 52 y.o F presenting with abd pain, distention and jaundice in the setting of heavy etOH use. Presentation consistent with alc hep. Abd distention appears to be from diffuse hepatomegaly, no ascites noted on US. Recommend: - Cont Abx for possible PNA and UTI - Blood Cx pending - Maddrey's of 40.6 on admission, however will recommend holding off steroids until she has had IV Abx for aforementioned infections x 48 hours - Check iron, B12 and folate levels to work up anemia - Given ataxia and wide MCV, would recommend thiamine 500mg IV BID x 5 days, then decrease to 250mg IV once daily x 5 days, and then 100mg PO daily - Replete electrolytes as needed - High protein nutrition - can add protein shakes BID Time Spent With Patient Time: Total time managing care of this patient today ____ minutes.
--- NOTE | 2023-04-19 09:03 | PC.NURSE ---
patient resting in bed, respirations equal and unlabored. patient sitting up in bed enjoying her breakfast. patient was moved into a hospital bed this morning for comfort.
[2023-04-19 09:18] LABS: Hematocrit 23.3 % (37.0-47.0); Hemoglobin 7.4 g/dl (12.0-16.0); Mean Corpuscular HGB Conc 31.8 g/dl (31.0-35.0); Mean Corpuscular Hemoglobin 35.7 pg (27.0-33.0); NRBC Pct Auto 0.1 /100WBC (0.0-0.2); Platelet Count 336 X10*3/uL (160-400); Red Blood Count 2.07 X10*6/uL (4.20-5.50); Red Cell Distribution Width 21.6 % (11.0-16.0)
[2023-04-19 09:24] LABS: Anion Gap 16 (12-20); Blood Urea Nitrogen 10 mg/dL (9-16); Calcium 7.7 mg/dL (8.4-10.2); Carbon Dioxide 25 mmol/L (22-29); Chloride 92 mmol/L (96-108); Creatinine Clr Calc Pharmacy 84.3; Estimated Glomerular Filt Rate > 60; Glucose Random 100 mg/dL (60-115); Mean Corpuscular Volume 112.6 fL (80.0-98.0); Sodium 130 mmol/L (135-145)
--- NOTE | 2023-04-19 09:33 | P.PNIM_ITS ---
Subjective Subjective Date of Service: 04/19/23 Review of Systems Follow up alcohol use and withdrawal feeling better tired no pain Physical Exam Vital Signs: Vital Signs: Last Vital Signs Temp 98.7 F 04/19/23 07:46 Pulse 87 04/19/23 07:46 Resp 20 04/19/23 07:46 BP 91/63 04/19/23 07:46 Pulse Ox 95 04/19/23 07:46 O2 Del Method Nasal Cannula 04/19/23 07:46 O2 Flow Rate 2 04/19/23 07:46 BMI result Body Mass Index 23.7 Appearing in no acute distress lung sounds are clear to auscultation heart regular rate rhythm, clear S1, S2 positive bowel sounds, abdomen is soft, nontender neuro patient is alert x3, no focal deficits Objective Data Active Medications Docusate Sodium (Docusate Sodium 100 Mg Capsule) 100 mg PO DAILY PRN PRN Reason: Constipation Enoxaparin Sodium (Enoxaparin Sodium 40 Mg/0.4 Ml Syringe) 40 mg SUBCUT Q24H [facility] Last Admin: 04/18/23 22:47 Dose: 40 mg Documented By: RAIMUNDO Folic Acid (Folic Acid 1 Mg Tablet) 1 mg PO DAILY [facility] Stop: 04/22/23 08:59 Last Admin: 04/19/23 08:29 Dose: 1 mg Documented By: JORDY Ceftriaxone Sodium 1 gm/ (Sodium Chloride) 50 mls @ 100 mls/hr IV Q24H [facility] Last Admin: 04/19/23 08:26 Dose: 100 mls/hr Documented By: JORDY Multivitamins/Vitamin C (Multivitamin Tablet) 1 tab PO DAILY [facility] Stop: 04/22/23 08:59 Last Admin: 04/19/23 08:29 Dose: 1 tab Documented By: JORDY Ondansetron HCl (Ondansetron Hcl 4 Mg/2 Ml Vial) 4 mg IVPUSH Q8H PRN PRN Reason: Nausea and Vomiting Potassium Chloride (Potassium Chloride Er 20 Meq Tab.Er.Prt) 40 meq PO ONCE ONE Stop: 04/19/23 09:33 Sodium Chloride (0.9 % Sodium Chloride Flush 3 Ml Syringe) 3 ml IVFLUSH QSHIFT [facility] Last Admin: 04/19/23 08:29 Dose: 3 ml Documented By: JORDY Thiamine HCl (Thiamine Hcl 100 Mg Tablet) 100 mg PO DAILY [facility] Stop: 04/22/23 08:59 Last Admin: 04/19/23 08:29 Dose: 100 mg Documented By: JORDY Labs 04/19/23 08:42 04/19/23 08:42 Labs: Laboratory Results - last 24 hr 04/18/23 04/18/23 04/18/23 13:12 13:12 13:12 MCV 112.1 H MCH 36.3 H MCHC 32.3 RDW 21.9 H Plt Count 338 MPV 10.9 Immature Gran % (Auto) 0.9 H Neut % (Auto) 85.3 H Lymph % (Auto) 8.0 L [place] % (Auto) 4.8 Eos % (Auto) 0.5 Baso % (Auto) 0.5 Lymph # (Auto) 2.1 [place] # (Auto) 1.3 H Eos # (Auto) 0.1 Baso # (Auto) 0.1 Abs Immat Gran (auto) 0.25 H Absolute Neuts (auto) 22.7 H Absolute Nucleated RBC 0.050 H Nucleated RBC % (auto) 0.2 Smear Tech's Comments VERIFIED PT 19.1 H INR 1.6 H APTT 38.0 H Anion Gap 18 Estim Creat Clear Calc 78.4 Estimated GFR > 60 Random Glucose 120 H Lactic Acid Lactic Acid F/U @ 2Hr Calcium 8.2 L D Magnesium 2.0 Total Bilirubin 7.9 H AST 96 H ALT 18 Alkaline Phosphatase 212 H Total Protein 5.7 L Albumin 2.5 L Triglycerides Cholesterol LDL Cholesterol, Calc HDL Cholesterol Lipase 31 Vitamin B12 Folate Beta HCG, Quant Urine Color Urine Appearance Urine pH Ur Specific [place] Urine Protein Urine Glucose (UA) Urine Ketones Urine Blood Urine Nitrite Ur Leukocyte Esterase Urine RBC Urine WBC Ur Squamous Epith Cells Urine Bacteria Hyaline Casts 04/18/23 04/18/23 04/18/23 13:12 13:12 17:55 MCV MCH MCHC RDW Plt Count MPV Immature Gran % (Auto) Neut % (Auto) Lymph % (Auto) [place] % (Auto) Eos % (Auto) Baso % (Auto) Lymph # (Auto) [place] # (Auto) Eos # (Auto) Baso # (Auto) Abs Immat Gran (auto) Absolute Neuts (auto) Absolute Nucleated RBC Nucleated RBC % (auto) Smear Tech's Comments PT INR APTT Anion Gap Estim Creat Clear Calc Estimated GFR Random Glucose Lactic Acid Lactic Acid F/U @ 2Hr Calcium Magnesium Total Bilirubin AST ALT Alkaline Phosphatase Total Protein Albumin Triglycerides Cholesterol LDL Cholesterol, Calc HDL Cholesterol Lipase Vitamin B12 Cancelled Folate Cancelled Beta HCG, Quant < 2 Urine Color Dark Yellow Urine Appearance Cloudy Urine pH 5.5 Ur Specific [place] 1.020 Urine Protein Trace Urine Glucose (UA) Negative Urine Ketones Negative Urine Blood Negative Urine Nitrite Positive H Ur Leukocyte Esterase Small (1+) H Urine RBC 6-10 H Urine WBC 0-5 Ur Squamous Epith Cells 11-20 Urine Bacteria 1+ Hyaline Casts 6-10 04/18/23 04/18/23 04/19/23 18:19 21:04 04:38 MCV 110.8 H MCH 37.1 H MCHC 33.5 RDW 21.2 H Plt Count 338 MPV 11.4 Immature Gran % (Auto) Neut % (Auto) Lymph % (Auto) [place] % (Auto) Eos % (Auto) Baso % (Auto) Lymph # (Auto) [place] # (Auto) Eos # (Auto) Baso # (Auto) Abs Immat Gran (auto) Absolute Neuts (auto) Absolute Nucleated RBC 0.030 H Nucleated RBC % (auto) 0.1 Smear Tech's Comments PT INR APTT Anion Gap Estim Creat Clear Calc Estimated GFR Random Glucose Lactic Acid 2.2 H* Lactic Acid F/U @ 2Hr 1.9 Calcium Magnesium Total Bilirubin AST ALT Alkaline Phosphatase Total Protein Albumin Triglycerides Cholesterol LDL Cholesterol, Calc HDL Cholesterol Lipase Vitamin B12 Folate Beta HCG, Quant Urine Color Urine Appearance Urine pH Ur Specific [place] Urine Protein Urine Glucose (UA) Urine Ketones Urine Blood Urine Nitrite Ur Leukocyte Esterase Urine RBC Urine WBC Ur Squamous Epith Cells Urine Bacteria Hyaline Casts 04/19/23 04/19/23 04/19/23 04:38 08:42 08:42 MCV 112.6 H MCH 35.7 H MCHC 31.8 RDW 21.6 H Plt Count 336 MPV 11.0 Immature Gran % (Auto) Neut % (Auto) Lymph % (Auto) [place] % (Auto) Eos % (Auto) Baso % (Auto) Lymph # (Auto) [place] # (Auto) Eos # (Auto) Baso # (Auto) Abs Immat Gran (auto) Absolute Neuts (auto) Absolute Nucleated RBC 0.030 H Nucleated RBC % (auto) 0.1 Smear Tech's Comments PT INR APTT Anion Gap 16 Estim Creat Clear Calc 84.3 Estimated GFR > 60 Random Glucose 100 Lactic Acid Lactic Acid F/U @ 2Hr Calcium 7.7 L D Magnesium Total Bilirubin AST ALT Alkaline Phosphatase Total Protein Albumin Triglycerides 168 Cholesterol 194 LDL Cholesterol, Calc 153 HDL Cholesterol 8 Lipase Vitamin B12 Folate Beta HCG, Quant Urine Color Urine Appearance Urine pH Ur Specific [place] Urine Protein Urine Glucose (UA) Urine Ketones Urine Blood Urine Nitrite Ur Leukocyte Esterase Urine RBC Urine WBC Ur Squamous Epith Cells Urine Bacteria Hyaline Casts Assessment and Plan (1) Alcohol use disorder: Status: Acute Plan 52 year old women admitted with Alcoholic hepatitis Acute alcoholic hepatitis Bilirubin 7.9, AST 96, alk-phos 212, abdominal ultrasound showed hepatomegaly with likely hepatic steatosis with liver parenchymal disease and portal hypertension continue Folic acid, thiamine, multivitamin Seen by GI>hold off on steroids for now, Thiamine 500mg BIDIV x5 days then decrease to 250mg IV daily x 5 day, then 100mg daily, high protein diet UTI Rocephin follow urine cx Macrocytic anemia Patient's H&H 8.7/26.9 with MCV 112.1 check iron studies Hyponatremia secondary to alcohol abuse 130 today avoid over correction Hypokalemia replete Question of aspiration pneumonia CXR with findings suggestive of left lower lobe subsegmental atelectasis versus aspiration/early infiltrates Patient asymptomatic Monitor respiratory status Lactic acidosis, resolved secondary to dehydration Lactic acid 2.2 with repeat 1.9 Patient given IVF in ED leukocytosis secondary to UTI treat abx Ataxia Pt states she has had difficulty walking without assistance for past 3 years secondary to alcohol use disorder PT evaluation Full Code Attending:?Dr. Xiao DVT Prophylaxis: Lovenox Pt will require a hospitalization of at least two nights for treatment of acute alcoholic hepatitis. Time Spent With Patient Time: Total time managing care of this patient today ____ minutes. Quality Stroke Does the patient have a stroke diagnosis?: No VTE Prior VTE?: No VTE Risk Level:: Medical - moderate - high VTE Device Contraindication: Treatment Not Indicated VTE Drug Contraindication: N/A - Med Ordered
[2023-04-19 10:26] LABS: Iron 56 mcg/dL (30-160); Percent Iron Saturation 43 % (15-50); Total Iron Binding Capacity 131 mcg/dL (228-428); Unsaturated Iron Binding 75 ug/dL
[2023-04-19] MEDS: Potassium Chloride ER 20 MEQ TAB.ER.PRT 40 MEQ PO (10:36)
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
--- NOTE | 2023-04-19 12:15 | MHC.CM.PN ---
Met w/pt to discuss d/c planning needs: pt resides alone, self described as independent w/care needs, no services or DME. Pt has a working cell w/her and will call friend for transportation to home. She has a therapist in the community as well as an rn family practice and other non traditional healers/practitioners. PCP is Jolanta Franco. HCP declined. Pt engaging and conversant: has little insight into her admission (liver cirrhosis, large volume ascites, notable jaundice) Inquired on CARE team involvement for ETOH cessation needs: I hardly drink....people with liver failure wake up and drink and are shaky and intoxicated all day. I don't even get a buzz, I just have a few drinks a day because I like to. Pt feels her cirrhosis is d/t unresolved anger that the liver holds onto. Repeatedly asked why she needed to be admitted as she is just tired CM to follow for changes in d/c planning.
[2023-04-19] MEDS: Thiamine HCL 500 MG in 0.9 % Sodium Chloride 100 ML 210 MG IV (16:33)
[2023-04-19] MEDS: LORazepam 2 MG/ML VIAL 0.5 MG IVPUSH ×2 (16:38→23:18)
[2023-04-19] MEDS: Enoxaparin Sodium 40 MG/0.4 ML SYRINGE SUBCUT (22:12)
[2023-04-20 04:00] VITALS: BP 97/64; PULSE 82; RESP 18; TEMP 36.6; O2SAT 94
[2023-04-20] MEDS: Thiamine HCL 500 MG in 0.9 % Sodium Chloride 100 ML 210 MG IV ×2 (04:17→16:30)
[2023-04-20] MEDS: LORazepam 2 MG/ML VIAL 0.5 MG IVPUSH ×3 (06:22→19:24)
--- NOTE | 2023-04-20 06:36 | PC.NURSE ---
Addendum entered by Jackson Carvajal RN 04/20/23 06:44: pt now in br. will be observed , camera was placed in room for safety and walker was provided for future ambulation. Original Note: at 2115 pm pt was walked to bathroom 1 assist and placed on toilet pt is alert and she told RN TO leave the room she will call when ready, she was instructed how to use call system, but instead she just got up and found herself on floor sitting. she said didnt get hurt or she did not bump her head md and nursing branch logistics supervisor notified vss.skin was checked will monitor.
[2023-04-20 07:44] VITALS: BP 92/55; PULSE 99; RESP 18; TEMP 36.6; O2SAT 91
[2023-04-20] MEDS: Multivitamin TABLET 1 TAB PO (08:26)
[2023-04-20] MEDS: Folic Acid 1 MG TABLET PO (08:26)
[2023-04-20] MEDS: 0.9 % Sodium Chloride Flush 3 ML SYRINGE IVFLUSH ×2 (08:26→16:34)
[2023-04-20] MEDS: cefTRIAXone sodium 1 GM in 0.9 % Sodium Chloride 50 ML IV (08:26)
[2023-04-20 08:32] LABS: Alanine Aminotransferase 16 U/L (0-31); Albumin Level 2.1 g/dL (3.5-5.0); Alkaline Phosphatase 179 U/L (39-117); Anion Gap 14 (12-20); Aspartate Amino Transferase 76 U/L (5-31); Bilirubin Direct 4.3 mg/dL (0.0-0.5); Bilirubin Total 5.5 mg/dL (0.0-1.0); Blood Urea Nitrogen 10 mg/dL (9-16); Calcium 7.6 mg/dL (8.4-10.2); Carbon Dioxide 24 mmol/L (22-29); Chloride 95 mmol/L (96-108); Creatinine Clr Calc Pharmacy 85.6; Estimated Glomerular Filt Rate > 60; Glucose Random 94 mg/dL (60-115); Iron 69 mcg/dL (30-160); Percent Iron Saturation 57 % (15-50); Potassium 3.2 mmol/L (3.3-5.1); Sodium 130 mmol/L (135-145); Total Iron Binding Capacity 122 mcg/dL (228-428); Total Protein 4.8 g/dL (6.5-8.0); Unsaturated Iron Binding 53 ug/dL
[2023-04-20 08:52] LABS: Ferritin 642 ng/mL (10-250)
[2023-04-20 09:07] LABS: Vitamin B12 1950 pg/mL (200-900)
--- NOTE | 2023-04-20 11:39 | P.PNIM_ITS ---
Subjective Subjective Date of Service: 04/20/23 Review of Systems Follow up alcohol use and withdrawal feeling better tired no pain Physical Exam Vital Signs: Vital Signs: Last Vital Signs Temp 98 F 04/20/23 07:44 Pulse 99 04/20/23 07:44 Resp 18 04/20/23 07:44 BP 92/55 L 04/20/23 07:44 Pulse Ox 91 L 04/20/23 07:44 O2 Del Method Room Air 04/20/23 07:44 O2 Flow Rate 2 04/19/23 07:46 BMI result Body Mass Index 23.7 Appearing in no acute distress lung sounds are clear to auscultation heart regular rate rhythm, clear S1, S2 positive bowel sounds, abdomen is soft, nontender neuro patient is alert x3, no focal deficits Objective Data Active Medications Docusate Sodium (Docusate Sodium 100 Mg Capsule) 100 mg PO DAILY PRN PRN Reason: Constipation Enoxaparin Sodium (Enoxaparin Sodium 40 Mg/0.4 Ml Syringe) 40 mg SUBCUT Q24H [facility] Last Admin: 04/19/23 22:12 Dose: 40 mg Documented By: ARELI Folic Acid (Folic Acid 1 Mg Tablet) 1 mg PO DAILY [facility] Stop: 04/22/23 08:59 Last Admin: 04/20/23 08:26 Dose: 1 mg Documented By: CATHY Ceftriaxone Sodium 1 gm/ (Sodium Chloride) 50 mls @ 100 mls/hr IV Q24H [facility] Last Infusion: 04/20/23 09:14 Dose: 0 mls/hr Documented By: CATHY Thiamine HCl 500 mg/ Sodium (Chloride) 105 mls @ 210 mls/hr IV Q12H [facility] Stop: 04/24/23 15:59 Last Infusion: 04/20/23 05:28 Dose: 0 mls/hr Documented By: ARELI Lorazepam (Lorazepam 2 Mg/Ml Vial) 0.5 mg IVPUSH Q6H PRN PRN Reason: Anxiety Last Admin: 04/20/23 06:22 Dose: 0.5 mg Documented By: ARELI Multivitamins/Vitamin C (Multivitamin Tablet) 1 tab PO DAILY [facility] Stop: 04/22/23 08:59 Last Admin: 04/20/23 08:26 Dose: 1 tab Documented By: CATHY Ondansetron HCl (Ondansetron Hcl 4 Mg/2 Ml Vial) 4 mg IVPUSH Q8H PRN PRN Reason: Nausea and Vomiting Sodium Chloride (0.9 % Sodium Chloride Flush 3 Ml Syringe) 3 ml IVFLUSH QSHIFT [facility] Last Admin: 04/20/23 08:26 Dose: 3 ml Documented By: CATHY Labs 04/19/23 08:42 04/20/23 08:02 Labs: Laboratory Results - last 24 hr 04/20/23 04/20/23 04/20/23 08:02 08:02 08:02 Anion Gap 14 Estim Creat Clear Calc 85.6 Estimated GFR > 60 Random Glucose 94 Calcium 7.6 L Iron 69 TIBC 122 L % Saturation 57 H Unsat Iron Binding 53 Ferritin 642 H Total Bilirubin 5.5 H Direct Bilirubin 4.3 H AST 76 H ALT 16 Alkaline Phosphatase 179 H Total Protein 4.8 L Albumin 2.1 L Vitamin B12 1950 H Folate 5.0 Microbiology Microbiology Results: Microbiology 04/18/23 18:19 Blood Culture - Preliminary Blood - Venous No growth after 24 hours. 04/18/23 18:19 Blood Culture - Preliminary Blood - Venous No growth after 24 hours. 04/18/23 Unknown Urine Culture - Preliminary Urine clean catch - Urine simmons top Culture too young to evaluate. Assessment and Plan (1) Alcohol use disorder: Status: Acute Plan 52 year old women admitted with Alcoholic hepatitis Acute alcoholic hepatitis Bilirubin 7.9-trending down, AST 96, alk-phos 212, abdominal ultrasound showed hepatomegaly with likely hepatic steatosis with liver parenchymal disease and portal hypertension continue Folic acid, thiamine, multivitamin Seen by GI>hold off on steroids for now, Thiamine 500mg BIDIV x5 days then decrease to 250mg IV daily x 5 day, then 100mg daily, high protein diet UTI Rocephin follow urine cx Macrocytic anemia Patient's H&H 8.7/26.9 with MCV 112.1 iron 69/TIBC 122/ferritin 642/b12 1950 Hyponatremia secondary to alcohol abuse 130 today avoid over correction Hypokalemia replete Question of aspiration pneumonia CXR with findings suggestive of left lower lobe subsegmental atelectasis versus aspiration/early infiltrates Patient asymptomatic Monitor respiratory status Lactic acidosis, resolved secondary to dehydration Lactic acid 2.2 with repeat 1.9 s/p IV fluids leukocytosis secondary to UTI treat abx Ataxia Pt states she has had difficulty walking without assistance for past 3 years secondary to alcohol use disorder PT evaluation Full Code Attending:?Dr. Xiao DVT Prophylaxis: Lovenox Pt will require a hospitalization of at least two nights for treatment of acute alcoholic hepatitis. Time Spent With Patient Time: Total time managing care of this patient today ____ minutes. Quality Stroke Does the patient have a stroke diagnosis?: No VTE Prior VTE?: No VTE Risk Level:: Medical - moderate - high VTE Device Contraindication: Treatment Not Indicated VTE Drug Contraindication: N/A - Med Ordered
[2023-04-20] MEDS: Potassium Chloride ER 20 MEQ TAB.ER.PRT 40 MEQ PO (12:27)
[2023-04-20] MEDS: Albumin Human 25 % 100 ML IV ×2 (14:19→19:31)
[2023-04-20 15:16] VITALS: BP 100/66; PULSE 108; RESP 18; TEMP 36.1; O2SAT 94
[2023-04-20 15:18] LABS: Hematocrit 25.9 % (37.0-47.0); Hemoglobin 8.4 g/dl (12.0-16.0)
[2023-04-20 15:32] LABS: Magnesium 2.1 mg/dL (1.6-2.6)
[2023-04-20 19:51] VITALS: BP 104/73; PULSE 102; RESP 16; TEMP 36.1; O2SAT 92
[2023-04-21] VITALS (9 sets, daily range): BP systolic 90–114; BP diastolic 56–82; PULSE 83–100; RESP 14–18; TEMP 36–38; O2SAT 90–94
[2023-04-21] MEDS: 0.9 % Sodium Chloride Flush 3 ML SYRINGE IVFLUSH ×4 (00:31→21:26)
[2023-04-21] MEDS: Enoxaparin Sodium 40 MG/0.4 ML SYRINGE SUBCUT (00:31)
[2023-04-21] MEDS: Albumin Human 25 % 100 ML IV ×2 (00:34→07:41)
[2023-04-21] MEDS: LORazepam 2 MG/ML VIAL 0.5 MG IVPUSH ×4 (01:00→21:33)
[2023-04-21] MEDS: Thiamine HCL 500 MG in 0.9 % Sodium Chloride 100 ML 210 MG IV ×2 (04:08→16:52)
[2023-04-21 04:51] LABS: HBc Num1 0.07 S/CO (0.00-0.79); HBsAGNum1 0.32 S/CO (0.00-0.99); Hepatitis A Antibody IgM 0.15 Index (0-0.79); Hepatitis B Core Antibody Nonreactive (Nonreactive); Hepatitis B Surface Antigen Negative (Negative); ~HepC Num1 0.12 S/CO (0.00-0.79); ~Hepatitis A Antibody IgM Nonreactive (Nonreactive); ~Hepatitis B Surface Antibody NONREACTIVE (Nonreactive); ~Hepatitis C Antibody Nonreactive (Nonreactive)
[2023-04-21 05:58] LABS: Hematocrit 21.7 % (37.0-47.0); Mean Corpuscular HGB Conc 31.8 g/dl (31.0-35.0); Mean Corpuscular Hemoglobin 36.3 pg (27.0-33.0); Mean Corpuscular Volume 114.2 fL (80.0-98.0); Mean Platelet Volume 10.8 fL (9.4-12.3); NRBC Pct Auto 0.1 /100WBC (0.0-0.2); Platelet Count 296 X10*3/uL (160-400); Red Cell Distribution Width 19.9 % (11.0-16.0); White Blood Count 24.7 X10*3/uL (4.8-10.8)
[2023-04-21 06:08] LABS: Anion Gap 14 (12-20); Blood Urea Nitrogen 8 mg/dL (9-16); Calcium 8.3 mg/dL (8.4-10.2); Carbon Dioxide 24 mmol/L (22-29); Chloride 97 mmol/L (96-108); Creatinine Clr Calc Pharmacy 89.8; Estimated Glomerular Filt Rate > 60; Glucose Random 91 mg/dL (60-115); Potassium 3.3 mmol/L (3.3-5.1); Sodium 132 mmol/L (135-145)
[2023-04-21 06:09] LABS: Alanine Aminotransferase 15 U/L (0-31); Alkaline Phosphatase 152 U/L (39-117); Aspartate Amino Transferase 68 U/L (5-31); Bilirubin Direct 3.9 mg/dL (0.0-0.5); Bilirubin Total 5.1 mg/dL (0.0-1.0); Total Protein 5.2 g/dL (6.5-8.0)
[2023-04-21 06:14] LABS: Hemoglobin 6.9 g/dl (12.0-16.0)
--- NOTE | 2023-04-21 06:15 | MHC.PIE ---
p; hemoglobin 6.8 i; dr pike notified e; will cont to monitor
[2023-04-21] MEDS: cefTRIAXone sodium 1 GM in 0.9 % Sodium Chloride 50 ML IV (07:27)
[2023-04-21 07:31] LABS: SLIDE REVIEW MANUAL DIFF
[2023-04-21] MEDS: Folic Acid 1 MG TABLET PO (07:32)
[2023-04-21] MEDS: Multivitamin TABLET 1 TAB PO (07:32)
[2023-04-21 07:39] LABS: Band Neutrophils Percent 11 % (3-5); Basophils Abs Manual 0.2 X10*3/uL (0.0-0.2); Basophils Percent Manual 1 % (0-2); Eosinophils Absolute Manual 0.5 X10*3/uL (0.0-0.4); Eosinophils Percent Manual 2 % (0-4); Lymphocytes Absolute Manual 2.7 X10*3/uL (1.2-4.9); Lymphocytes Percent Manual 11 % (20-40); Metamyelocytes Absolute 0.5 X10*3/uL; Metamyelocytes Percent 2 %; Monocytes Absolute Manual 0.5 X10*3/uL (0.1-1.2); Monocytes Percent Manual 2 % (2-11); Neutrophils Absolute Manual 20.3 X10*3/uL (2.0-8.3); Neutrophils Percent Manual 71 % (45-73)
[2023-04-21 07:43] LABS: Howell Jolly Bodies PRESENT; Hypochromasia 1+ (5-14) /OIF; Macrocytosis 2+ (15-30) /OIF; Polychromasia 2+ (3-5) /OIF; RBC Morphology NOTED; Target Cells 1+ (5-14) /OIF
[2023-04-21 07:48] LABS: Platelet Estimate NORMAL (NORMAL); Platelet Morphology Comment NORMAL
--- NOTE | 2023-04-21 08:12 | P.PNIM_ITS ---
Subjective Subjective Date of Service: 04/21/23 Review of Systems Follow up alcohol use and withdrawal feeling better tired no pain Physical Exam Vital Signs: Vital Signs: Last Vital Signs Temp 97.1 F 04/21/23 07:33 Pulse 94 04/21/23 07:33 Resp 16 04/21/23 07:33 BP 98/58 L 04/21/23 07:33 Pulse Ox 94 04/21/23 07:33 O2 Del Method Room Air 04/21/23 07:33 O2 Flow Rate 1 04/21/23 03:53 BMI result Body Mass Index 23.7 Appearing in no acute distress lung sounds are clear to auscultation heart regular rate rhythm, clear S1, S2 positive bowel sounds, abdomen is soft, nontender, mildly distended neuro patient is alert x3, no focal deficits Objective Data Active Medications Docusate Sodium (Docusate Sodium 100 Mg Capsule) 100 mg PO DAILY PRN PRN Reason: Constipation Enoxaparin Sodium (Enoxaparin Sodium 40 Mg/0.4 Ml Syringe) 40 mg SUBCUT Q24H [facility] Last Admin: 04/21/23 00:31 Dose: 40 mg Documented By: ZAK Folic Acid (Folic Acid 1 Mg Tablet) 1 mg PO DAILY [facility] Stop: 04/22/23 08:59 Last Admin: 04/21/23 07:32 Dose: 1 mg Documented By: HARINDER Ceftriaxone Sodium 1 gm/ (Sodium Chloride) 50 mls @ 100 mls/hr IV Q24H [facility] Last Admin: 04/21/23 07:27 Dose: 100 mls/hr Documented By: HARINDER Thiamine HCl 500 mg/ Sodium (Chloride) 105 mls @ 210 mls/hr IV Q12H [facility] Stop: 04/24/23 15:59 Last Infusion: 04/21/23 04:44 Dose: 0 mls/hr Documented By: ZAK Albumin Human (Kedbumin 25 %) 100 mls @ 100 mls/hr IV Q6H [facility] Stop: 04/21/23 08:44 Last Admin: 04/21/23 07:41 Dose: 100 mls/hr Documented By: HARINDER Sodium Chloride (Ns) 100 mls @ 100 mls/hr IV ONCE ONE Stop: 04/21/23 09:10 Sodium Chloride (Ns) 100 mls @ 100 mls/hr IV ONCE ONE Stop: 04/21/23 09:10 Lorazepam (Lorazepam 2 Mg/Ml Vial) 0.5 mg IVPUSH Q6H PRN PRN Reason: Anxiety Last Admin: 04/21/23 07:40 Dose: 0.5 mg Documented By: HARINDER Comments: Multivitamins/Vitamin C (Multivitamin Tablet) 1 tab PO DAILY [facility] Stop: 04/22/23 08:59 Last Admin: 04/21/23 07:32 Dose: 1 tab Documented By: HARINDER Ondansetron HCl (Ondansetron Hcl 4 Mg/2 Ml Vial) 4 mg IVPUSH Q8H PRN PRN Reason: Nausea and Vomiting Sodium Chloride (0.9 % Sodium Chloride Flush 3 Ml Syringe) 3 ml IVFLUSH QSHIFT [facility] Last Admin: 04/21/23 07:28 Dose: 3 ml Documented By: HARINDER Labs 04/21/23 05:45 04/21/23 05:45 Labs: Laboratory Results - last 24 hr 04/20/23 04/20/23 04/20/23 08:02 08:02 08:02 MCV MCH MCHC RDW Plt Count MPV Immature Gran % (Auto) Neut % (Auto) Lymph % (Auto) [place] % (Auto) Eos % (Auto) Baso % (Auto) Lymph # (Auto) [place] # (Auto) Eos # (Auto) Baso # (Auto) Abs Immat Gran (auto) Absolute Neuts (auto) Absolute Nucleated RBC Nucleated RBC % (auto) Neutrophils % (Manual) Band Neutrophils % Lymphocytes % (Manual) Monocytes % (Manual) Eosinophils % (Manual) Basophils % (Manual) Metamyelocytes % Abs Neuts (Manual) Lymphocytes # (Manual) Monocytes # (Manual) Eosinophils # (Manual) Basophils # (Manual) Metamyelocytes # Platelet Estimate Plt Morphology Comment RBC Morphology Polychromasia Hypochromasia Macrocytosis Target Cells Rm-[place] Bodies Smear Tech's Comments Anion Gap 14 Estim Creat Clear Calc 85.6 Estimated GFR > 60 Random Glucose 94 Calcium 7.6 L Magnesium Iron 69 TIBC 122 L % Saturation 57 H Unsat Iron Binding 53 Ferritin 642 H Total Bilirubin 5.5 H Direct Bilirubin 4.3 H AST 76 H ALT 16 Alkaline Phosphatase 179 H Total Protein 4.8 L Albumin 2.1 L Vitamin B12 Folate Hepatitis A IgM Ab Nonreactive Hep Bs Antigen Negative Hep Bs Antibody NONREACTIVE Hep B Core Total Ab Nonreactive Hepatitis C Ab (EIA) Nonreactive Crossmatch 04/20/23 04/20/23 04/21/23 08:02 14:46 05:45 MCV MCH MCHC RDW Plt Count MPV Immature Gran % (Auto) Neut % (Auto) Lymph % (Auto) [place] % (Auto) Eos % (Auto) Baso % (Auto) Lymph # (Auto) [place] # (Auto) Eos # (Auto) Baso # (Auto) Abs Immat Gran (auto) Absolute Neuts (auto) Absolute Nucleated RBC Nucleated RBC % (auto) Neutrophils % (Manual) Band Neutrophils % Lymphocytes % (Manual) Monocytes % (Manual) Eosinophils % (Manual) Basophils % (Manual) Metamyelocytes % Abs Neuts (Manual) Lymphocytes # (Manual) Monocytes # (Manual) Eosinophils # (Manual) Basophils # (Manual) Metamyelocytes # Platelet Estimate Plt Morphology Comment RBC Morphology Polychromasia Hypochromasia Macrocytosis Target Cells Rm-[place] Bodies Smear Tech's Comments Anion Gap Estim Creat Clear Calc Estimated GFR Random Glucose Calcium Magnesium 2.1 Iron TIBC % Saturation Unsat Iron Binding Ferritin Total Bilirubin 5.1 H Direct Bilirubin 3.9 H AST 68 H ALT 15 Alkaline Phosphatase 152 H Total Protein 5.2 L Albumin 3.0 L Vitamin B12 1950 H Folate 5.0 Hepatitis A IgM Ab Hep Bs Antigen Hep Bs Antibody Hep B Core Total Ab Hepatitis C Ab (EIA) Crossmatch 04/21/23 04/21/23 04/21/23 05:45 05:45 07:47 MCV 114.2 H MCH 36.3 H MCHC 31.8 RDW 19.9 H Plt Count 296 MPV 10.8 Immature Gran % (Auto) Cancelled Neut % (Auto) Cancelled Lymph % (Auto) Cancelled [place] % (Auto) Cancelled Eos % (Auto) Cancelled Baso % (Auto) Cancelled Lymph # (Auto) Cancelled [place] # (Auto) Cancelled Eos # (Auto) Cancelled Baso # (Auto) Cancelled Abs Immat Gran (auto) Cancelled Absolute Neuts (auto) Cancelled Absolute Nucleated RBC 0.020 H Nucleated RBC % (auto) 0.1 Neutrophils % (Manual) 71 Band Neutrophils % 11 H Lymphocytes % (Manual) 11 L Monocytes % (Manual) 2 Eosinophils % (Manual) 2 Basophils % (Manual) 1 Metamyelocytes % 2 Abs Neuts (Manual) 20.3 H Lymphocytes # (Manual) 2.7 Monocytes # (Manual) 0.5 Eosinophils # (Manual) 0.5 H Basophils # (Manual) 0.2 Metamyelocytes # 0.5 Platelet Estimate NORMAL Plt Morphology Comment NORMAL RBC Morphology NOTED Polychromasia 2+ (3-5) Hypochromasia 1+ (5-14) Macrocytosis 2+ (15-30) Target Cells 1+ (5-14) Rm-[place] Bodies PRESENT Smear Tech's Comments MANUAL DIFF Anion Gap 14 Estim Creat Clear Calc 89.8 Estimated GFR > 60 Random Glucose 91 Calcium 8.3 L D Magnesium Iron TIBC % Saturation Unsat Iron Binding Ferritin Total Bilirubin Direct Bilirubin AST ALT Alkaline Phosphatase Total Protein Albumin Vitamin B12 Folate Hepatitis A IgM Ab Hep Bs Antigen Hep Bs Antibody Hep B Core Total Ab Hepatitis C Ab (EIA) Crossmatch See Detail Microbiology Microbiology Results: Microbiology 04/18/23 18:19 Blood Culture - Preliminary Blood - Venous No growth after 48 hours. 04/18/23 18:19 Blood Culture - Preliminary Blood - Venous No growth after 48 hours. 04/18/23 Unknown Urine Culture - Final Urine clean catch - Urine simmons top Assessment and Plan (1) Alcohol use disorder: Status: Acute Plan 52 year old women admitted with Alcoholic hepatitis Acute Macrocytic anemia. unspecified HH down to 6.9/21.7 iron 69/TIBC 122/ferritin 642/b12 1950 tx one unit PRBC check occult stool Acute alcoholic hepatitis Bilirubin 7.9-trending down, AST 96, alk-phos 212, abdominal ultrasound showed hepatomegaly with likely hepatic steatosis with liver parenchymal disease and portal hypertension continue Folic acid, thiamine, multivitamin Seen by GI>hold off on steroids for now, Thiamine 500mg BIDIV x5 days then decrease to 250mg IV daily x 5 day, then 100mg daily, high protein diet recheck abd us today in light of abd distension leukocytosis. slowly trending down unclear etiology ua mixed doris possible asp pna, treated with rocephin initially, new cxr clear Aspiration pneumonia CXR with findings suggestive of left lower lobe subsegmental atelectasis versus aspiration/early infiltrates initially repeat CXR neg for acute abnornomality, no need for further tx UTI urine cx mixed doris Hyponatremia. 132 secondary to alcohol abuse avoid over correction Hypokalemia repleted and resolved Lactic acidosis, resolved secondary to dehydration Lactic acid 2.2 with repeat 1.9 s/p IV fluids Ataxia Pt states she has had difficulty walking without assistance for past 3 years secondary to alcohol use disorder PT evaluation pending Full Code Attending:?Dr. Orozco DVT Prophylaxis: [facility] compression boots in light of anemia Continue hospitalization for treatment of acute alcoholic hepatitis requiring close monitoring and blood transfusion for acute anemia Time Spent With Patient Time: Total time managing care of this patient today ____ minutes. Quality Stroke Does the patient have a stroke diagnosis?: No VTE Prior VTE?: No VTE Risk Level:: Medical - moderate - high VTE Device Contraindication: Treatment Not Indicated VTE Drug Contraindication: N/A - Med Ordered
--- NOTE | 2023-04-21 09:39 | P.CDIM_ITS ---
PROVIDER RESPONSE TEXT: To clarify, the appropriate diagnosis supported by the clinical indicators: Acute QUERY TEXT: PHYSICIAN'S DOCUMENTATION REQUEST Date of Query: 04/21/2023 09:11 AM EDT Patient Name: CHUCK STORY Admit Date: 04/19/2023 Dear Jami Iyer, A review of the medical record indicates additional documentation may be needed. Please review below and update the documentation accordingly. Clinical Indicators: PN: Lactic acidosis, resolved secondary to dehydration la 2.2 with repeat 1.9 s/p IV fluids Clarify which of the following accurately represents the acuity of the lactic acidosis: Acute Acute on chronic Chronic stable condition Other (explain)Clinically unable to determine (explain)Thank you, Sudha Edwards, CCS, CDIS Use of terms such as suspected, likely, concern for, or probable (associated with a specific diagnosi s that is being evaluated, monitored, or treated as if it exists) are acceptable and can be coded in the inpatient se tting, when documented at the time of discharge. Please use your independent medical judgment in providing your response. THIS QUERY IS PART OF THE PERMANENT MEDICAL RECORD
--- NOTE | 2023-04-21 12:11 | P.PNGI_ITS ---
Subjective Subjective Date of Service: 04/21/23 Interval History: Pt seen and evaluated at bedside. Reports diffuse aches and pain in the body and generalised weakness. Labs reviewed, ?? H/H low but pt does not report any vomiting or melena/hematochezia. bili trending down. INR not available. Critical Care Time (minutes): 0 Physical Exam Vital Signs: Vital Signs: Last Vital Signs Temp 97.6 F 04/21/23 10:51 Pulse 91 04/21/23 10:51 Resp 18 04/21/23 10:51 BP 99/70 04/21/23 10:51 Pulse Ox 94 04/21/23 07:33 O2 Del Method Room Air 04/21/23 07:33 O2 Flow Rate 1 04/21/23 03:53 BMI result Body Mass Index 23.7 Gen appear: Grossly jaundiced Abd: soft, mildly tender, distended Neuro: A/Ox3, no asterixis Objective Data Labs 04/21/23 05:45 04/21/23 05:45 Labs: Laboratory Results - last 24 hr 04/18/23 04/20/23 04/20/23 13:12 08:02 14:46 WBC RBC Hgb 8.4 L Hct 25.9 L MCV MCH MCHC RDW Plt Count MPV Immature Gran % (Auto) Neut % (Auto) Lymph % (Auto) [place] % (Auto) Eos % (Auto) Baso % (Auto) Lymph # (Auto) [place] # (Auto) Eos # (Auto) Baso # (Auto) Abs Immat Gran (auto) Absolute Neuts (auto) Absolute Nucleated RBC Nucleated RBC % (auto) Neutrophils % (Manual) Band Neutrophils % Lymphocytes % (Manual) Monocytes % (Manual) Eosinophils % (Manual) Basophils % (Manual) Metamyelocytes % Abs Neuts (Manual) Lymphocytes # (Manual) Monocytes # (Manual) Eosinophils # (Manual) Basophils # (Manual) Metamyelocytes # Platelet Estimate Plt Morphology Comment RBC Morphology Polychromasia Hypochromasia Macrocytosis Target Cells Rm-[place] Bodies Smear Tech's Comments Smear Path Review SEE NOTE Sodium Potassium Chloride Carbon Dioxide Anion Gap BUN Creatinine Estim Creat Clear Calc Estimated GFR Random Glucose Calcium Magnesium Total Bilirubin Direct Bilirubin AST ALT Alkaline Phosphatase Total Protein Albumin Hepatitis A IgM Ab Nonreactive Hep Bs Antigen Negative Hep Bs Antibody NONREACTIVE Hep B Core Total Ab Nonreactive Hepatitis C Ab (EIA) Nonreactive Blood Type Antibody Screen Crossmatch 04/20/23 04/21/23 04/21/23 14:46 05:45 05:45 WBC 24.7 H RBC 1.90 L Hgb 6.9 L* Hct 21.7 L MCV 114.2 H MCH 36.3 H MCHC 31.8 RDW 19.9 H Plt Count 296 MPV 10.8 Immature Gran % (Auto) Cancelled Neut % (Auto) Cancelled Lymph % (Auto) Cancelled [place] % (Auto) Cancelled Eos % (Auto) Cancelled Baso % (Auto) Cancelled Lymph # (Auto) Cancelled [place] # (Auto) Cancelled Eos # (Auto) Cancelled Baso # (Auto) Cancelled Abs Immat Gran (auto) Cancelled Absolute Neuts (auto) Cancelled Absolute Nucleated RBC 0.020 H Nucleated RBC % (auto) 0.1 Neutrophils % (Manual) 71 Band Neutrophils % 11 H Lymphocytes % (Manual) 11 L Monocytes % (Manual) 2 Eosinophils % (Manual) 2 Basophils % (Manual) 1 Metamyelocytes % 2 Abs Neuts (Manual) 20.3 H Lymphocytes # (Manual) 2.7 Monocytes # (Manual) 0.5 Eosinophils # (Manual) 0.5 H Basophils # (Manual) 0.2 Metamyelocytes # 0.5 Platelet Estimate NORMAL Plt Morphology Comment NORMAL RBC Morphology NOTED Polychromasia 2+ (3-5) Hypochromasia 1+ (5-14) Macrocytosis 2+ (15-30) Target Cells 1+ (5-14) Rm-[place] Bodies PRESENT Smear Tech's Comments MANUAL DIFF Smear Path Review Sodium Potassium Chloride Carbon Dioxide Anion Gap BUN Creatinine Estim Creat Clear Calc Estimated GFR Random Glucose Calcium Magnesium 2.1 Total Bilirubin 5.1 H Direct Bilirubin 3.9 H AST 68 H ALT 15 Alkaline Phosphatase 152 H Total Protein 5.2 L Albumin 3.0 L Hepatitis A IgM Ab Hep Bs Antigen Hep Bs Antibody Hep B Core Total Ab Hepatitis C Ab (EIA) Blood Type Antibody Screen Crossmatch 04/21/23 04/21/23 05:45 07:47 WBC RBC Hgb Hct MCV MCH MCHC RDW Plt Count MPV Immature Gran % (Auto) Neut % (Auto) Lymph % (Auto) [place] % (Auto) Eos % (Auto) Baso % (Auto) Lymph # (Auto) [place] # (Auto) Eos # (Auto) Baso # (Auto) Abs Immat Gran (auto) Absolute Neuts (auto) Absolute Nucleated RBC Nucleated RBC % (auto) Neutrophils % (Manual) Band Neutrophils % Lymphocytes % (Manual) Monocytes % (Manual) Eosinophils % (Manual) Basophils % (Manual) Metamyelocytes % Abs Neuts (Manual) Lymphocytes # (Manual) Monocytes # (Manual) Eosinophils # (Manual) Basophils # (Manual) Metamyelocytes # Platelet Estimate Plt Morphology Comment RBC Morphology Polychromasia Hypochromasia Macrocytosis Target Cells Rm-[place] Bodies Smear Tech's Comments Smear Path Review Sodium 132 L Potassium 3.3 Chloride 97 Carbon Dioxide 24 Anion Gap 14 BUN 8 L Creatinine 0.62 Estim Creat Clear Calc 89.8 Estimated GFR > 60 Random Glucose 91 Calcium 8.3 L D Magnesium Total Bilirubin Direct Bilirubin AST ALT Alkaline Phosphatase Total Protein Albumin Hepatitis A IgM Ab Hep Bs Antigen Hep Bs Antibody Hep B Core Total Ab Hepatitis C Ab (EIA) Blood Type A Positive Antibody Screen NEGATIVE Crossmatch See Detail Microbiology Microbiology Results: Microbiology 04/18/23 18:19 Blood - Venous Blood Culture - Preliminary No growth after 48 hours. 04/18/23 18:19 Blood - Venous Blood Culture - Preliminary No growth after 48 hours. 04/18/23 Unknown Urine clean catch - Urine simmons top Urine Culture - Final Procedures Date of Service Date of Service: 04/21/23 Progress Note: A&P Assessment and plan (1) Acute on chronic anemia: Status: Acute (2) Alcohol use disorder: Status: Acute (3) Acute alcoholic hepatitis: Status: Acute Plan Possible PNA and UTI seem well controlled with Abx. However now question of GIB which will again preclude steroid use for now. Reassuringly, bili continues to trend down. Orders placed for INR Will schedule an EGD for eval to r/o UGIB from varices/GAVE/PHG in the setting of underlying portal HTN. Please keep NPO after midnight. Time Spent With Patient Time: Total time managing care of this patient today ____ minutes. Quality Stroke Does the patient have a stroke diagnosis?: No VTE Prior VTE?: No VTE Risk Level:: Medical - moderate - high VTE Device Contraindication: Treatment Not Indicated VTE Drug Contraindication: N/A - Med Ordered
[2023-04-21 15:30] LABS: Hematocrit 32.2 % (37.0-47.0); Hemoglobin 10.2 g/dl (12.0-16.0)
[2023-04-21 15:36] LABS: INTERNATIONAL NORM RATIO 1.7 (0.9-1.1); Prothrombin Time 21.1 SEC (11.1-13.3)
--- NOTE | 2023-04-21 15:42 | MHC.RECOVRN ---
This writer technical publications met with patient after receiving addiction consult. Pt presented to the ED for jaundice, increased abd swelling. Pt resting in bed, pt grimacing, raising bed to get comfortable. 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 Pt reports is not addicted physically, but emotionally . Pt denies hx of ETOH withdrawal, no CUTLER, N/V, sweats, AVH, seizures. Pt reports goal of abstinence, pt states would like to drink on holidays. Pt states no hx of alcohol treatment, no hx of medications for ETOH use, pt reports no hx of recovery supports. Pt difficult to engage, guarded. Reviewed recovery resources, left resource folder at bedside. Pt encouraged to reach out to Addiction/Recovery team with any questions/concerns.
--- NOTE | 2023-04-21 15:51 | MHC.CM.PN ---
PT NOT YET CLEARED TO DC, DCP REMAINS HOME WITH NO SERVICES VIA PRIVATE TRANSPORT
[2023-04-21 19:01] LABS: Total Protein 5.2 g/dL (6.5-8.0)
--- NOTE | 2023-04-21 21:08 | PM.EVENT ---
Event Note Date of Service: 04/21/23 Event Note: Patient febrile with a fever of 100.4. Asymptomatic at this time. Will get blood cultures, lactic acid, will order x-ray of the chest as well as UA Will placed on ceftriaxone prophylactically Time Spent With Patient Time: Total time managing care of this patient today ____ minutes.
[2023-04-21] MEDS: Acetaminophen 325 MG TABLET 650 MG PO (21:16)
--- NOTE | 2023-04-21 21:34 | MHC.PIE ---
p; t 100.4 pt anxious and agitated i; dr raines notified; new order tylenol now. ok to give ativan early dose now. cxr, blood cx now e; will cont to monitor
[2023-04-21 22:09] LABS: Lactic Acid 1.5 mmol/L (0.5-2.0)
[2023-04-22] VITALS (9 sets, daily range): BP systolic 90–125; BP diastolic 50–78; PULSE 82–103; RESP 15–20; TEMP 36–37.2; O2SAT 91–98; BMI 23.0
[2023-04-22 03:21] LABS: Appearance Urine Clear; Color Urine Dark Yellow; Glucose Urine UA Negative (Negative); Leukocyte Esterase Urine Trace (Negative); Nitrite Urine Positive (Negative); Specific Gravity - Urine 1.015 (1.005-1.025); UMIC TRIGGER UACC YES; Urine Blood Negative (Negative); Urine Ketones Negative (Negative); Urine Protein Trace mg/dL (Neg-Trace)
[2023-04-22] MEDS: Thiamine HCL 500 MG in 0.9 % Sodium Chloride 100 ML 210 MG IV ×2 (03:26→16:02)
[2023-04-22] MEDS: LORazepam 2 MG/ML VIAL 0.5 MG IVPUSH ×4 (03:27→22:42)
[2023-04-22 03:40] LABS: Bacteria Urine Trace (None Seen); Hyaline Casts Urine 0-2 /LPF (0-2); UACC Culture Trigger YES; WBC Urine 0-5 /HPF (0-5)
[2023-04-22 06:33] LABS: Basophils Absolute Auto 0.2 X10*3/uL (0.0-0.2); Basophils Percent Auto 0.8 % (0-2); Eosinophils Absolute Auto 0.2 X10*3/uL (0.0-0.4); Eosinophils Percent Auto 0.8 % (0-4); Hematocrit 27.9 % (37.0-47.0); Imm Gran Abs Auto 0.24 X10*3/uL (0.00-0.03); Imm Gran Pct Auto 0.9 % (0.0-0.4); Lymphocytes Absolute Auto 1.9 X10*3/uL (1.2-4.9); Lymphocytes Percent Auto 6.8 % (20-40); MANUAL DIFF FLAG SCAN; Mean Corpuscular HGB Conc 32.3 g/dl (31.0-35.0); Mean Corpuscular Hemoglobin 35.6 pg (27.0-33.0); Mean Platelet Volume 11.4 fL (9.4-12.3); Monocytes Absolute Auto 1.4 X10*3/uL (0.1-1.2); Monocytes Percent Auto 5.1 % (2-11); Neutrophils Absolute Auto 23.1 x10*3/uL (2.0-8.3); Neutrophils Percent Auto 85.6 % (45-73); Platelet Count 304 X10*3/uL (160-400); Red Blood Count 2.53 X10*6/uL (4.20-5.50); SCAN SMEAR FLAG 1; White Blood Count 27.1 X10*3/uL (4.8-10.8)
[2023-04-22 06:37] LABS: INTERNATIONAL NORM RATIO 1.9 (0.9-1.1); Prothrombin Time 22.6 SEC (11.1-13.3)
[2023-04-22 06:43] LABS: Anion Gap 11 (12-20); Blood Urea Nitrogen 8 mg/dL (9-16); Calcium 8.1 mg/dL (8.4-10.2); Carbon Dioxide 26 mmol/L (22-29); Chloride 102 mmol/L (96-108); Estimated Glomerular Filt Rate > 60; Glucose Random 84 mg/dL (60-115); Potassium 3.4 mmol/L (3.3-5.1); Sodium 136 mmol/L (135-145)
[2023-04-22 06:45] LABS: Alanine Aminotransferase 12 U/L (0-31); Albumin Level 2.7 g/dL (3.5-5.0); Alkaline Phosphatase 141 U/L (39-117); Aspartate Amino Transferase 64 U/L (5-31); Bilirubin Direct 5.7 mg/dL (0.0-0.5); Bilirubin Total 7.5 mg/dL (0.0-1.0); Total Protein 4.8 g/dL (6.5-8.0)
[2023-04-22 06:53] LABS: Mean Corpuscular Volume 110.3 fL (80.0-98.0)
[2023-04-22 06:54] LABS: SLIDE REVIEW VERIFIED
[2023-04-22] MEDS: cefTRIAXone sodium 1 GM in 0.9 % Sodium Chloride 50 ML IV (07:25)
[2023-04-22] MEDS: 0.9 % Sodium Chloride Flush 3 ML SYRINGE IVFLUSH ×3 (07:26→22:45)
[2023-04-22] MEDS: Lidocaine HCl 1 % MPF 5 ML VIAL SUBCUT (10:23)
[2023-04-22 10:47] LABS: MN% 81.1 %; PMN% 18.9 %; RBC Peritoneal Fluid < 0.002 X10*6/uL; WBC Peritoneal Fluid 0.084 X10*3/uL
[2023-04-22 11:44] LABS: BF Shift QC OK YES; Lymphocyte Peritoneal Fl 21 %; Man Diluent Bkgrd OK YES; Neutrophils Peritoneal Fluid 3 %; Other Peritioneal Fl 76 %
--- NOTE | 2023-04-22 12:00 | P.CNID_ITS ---
History of Present Illness Data of Consult Service Date: 04/22/23 Requesting physician: Rashaun Klein Primary Care Provider: Unknown Physician HPI Reason for consult: leukocytosis She presents with weakness and found to have leukocytosis and patient also complaints of low grade fever at home. She quit drinking alcohol about two weeks ago. She has moderate ascites seen on u/s but not large amount and 84 PMN. She has no h/o Hepatitis C per her. Review of Systems Review of Systems: Yes all other systems are reviewed and are negative [facility] Past Medical History Medical History Alcoholism Family History Family history: reviewed and not pertinent Social History Social History Household Members: Spouse Housing: Apartment Do you presently have visiting nurse or other home services: No Alcohol intake: former Patient Tobacco Use Status: Former Tobacco user Second Hand Smoke Exposure: No Substance Use Type: Marijuana service: No Meds Allergies Allergy/AdvReac Type Severity Reaction Status Date / Time No Known Allergies Allergy Verified 04/18/23 12:36 Active Medications: Current Medications Docusate Sodium (Docusate Sodium 100 Mg Capsule) 100 mg PO DAILY PRN PRN Reason: Constipation Ceftriaxone Sodium 1 gm/ (Sodium Chloride) 50 mls @ 100 mls/hr IV Q24H KATE Last Infusion: 04/22/23 08:06 Dose: Infused Thiamine HCl 500 mg/ Sodium (Chloride) 105 mls @ 210 mls/hr IV Q12H KATE Stop: 04/24/23 15:59 Last Infusion: 04/22/23 04:02 Dose: Infused Thiamine HCl 100 mg/ Sodium (Chloride) 101 mls @ 202 mls/hr IV DAILY KATE Stop: 04/30/23 08:59 Albumin Human (Kedbumin 25 %) 100 mls @ 133.333 mls/hr IV Q1H KATE Stop: 04/22/23 12:44 Lorazepam (Lorazepam 2 Mg/Ml Vial) 0.5 mg IVPUSH Q6H PRN PRN Reason: Anxiety Last Admin: 04/22/23 03:27 Dose: 0.5 mg Ondansetron HCl (Ondansetron Hcl 4 Mg/2 Ml Vial) 4 mg IVPUSH Q8H PRN PRN Reason: Nausea and Vomiting Sodium Chloride (0.9 % Sodium Chloride Flush 3 Ml Syringe) 3 ml IVFLUSH QSHIFT [facility] Last Admin: 04/22/23 07:26 Dose: 3 ml Home Medications Medication Instructions Recorded Confirmed Last Taken Type No Known Home Meds 04/18/23 04/18/23 Unknown History Physical Exam Vital Signs: Vital Signs: Last Vital Signs Temp 97.8 F 04/22/23 11:00 Pulse 82 04/22/23 11:00 Resp 16 04/22/23 11:00 BP 125/78 04/22/23 11:00 Pulse Ox 97 04/22/23 11:00 O2 Del Method Nasal Cannula 04/22/23 11:00 O2 Flow Rate 2 04/22/23 11:00 BMI result Body Mass Index 23.7 Const: General: cooperative HEENT: Head: Yes normal to inspection Face and sinus: Yes normal facial exam Mouth: Normal oral and palatal mucosa present Teeth and gingiva: dentition normal Eyes: General: appearance normal, both eyes and all related structures Pupils: Equal, round and reactive pupils present Resp: Effort & Inspection: normal respiratory effort Cardio: Rate: regular rate Rhythm: regular rhythm GI: Other: abdominal girth increased, positive fluid Palpation (GI): Soft to palpation and nontender : General: Yes no CVA tenderness Back/Spine/Pelvis: Back: no CVA tenderness Skin: General skin exam: no rashes or lesions noted Neuro: General: moves all extremities Cranial nerves: Yes Equal, round and reactive pupils present Extrem: General: Yes normal to inspection Psych: Appearance: grossly normal Results Labs 04/22/23 05:57 04/22/23 05:57 Labs: Short CBC 04/21/23 04/22/23 Range/Units 15:07 05:57 WBC 27.1 H (4.8-10.8) X10*3/uL Hgb 10.2 L D 9.0 L (12.0-16.0) g/dl Hct 32.2 L D 27.9 L (37.0-47.0) % Plt Count 304 (160-400) X10*3/uL BMP 04/22/23 05:57 Sodium 136 Potassium 3.4 Chloride 102 Carbon Dioxide 26 BUN 8 L Creatinine 0.53 Calcium 8.1 L Liver Function 04/22/23 Range/Units 05:57 Total Bilirubin 7.5 H (0.0-1.0) mg/dL Direct Bilirubin 5.7 H (0.0-0.5) mg/dL AST 64 H (5-31) U/L ALT 12 (0-31) U/L Alkaline Phosphatase 141 H (39-117) U/L Albumin 2.7 L (3.5-5.0) g/dL Urine 04/22/23 Range/Units 03:17 Urine Color Dark Yellow Urine Appearance Clear Urine pH 6.0 (5.0-9.0) Ur Specific [place] 1.015 (1.005-1.025) Urine Protein Trace (Neg-Trace) mg/dL Urine Glucose (UA) Negative (Negative) mg/dL Microbiology Microbiology Results: Microbiology 04/18/23 18:19 Blood - Venous Blood Culture - Preliminary No growth after 48 hours. 04/18/23 18:19 Blood - Venous Blood Culture - Preliminary No growth after 48 hours. 04/18/23 Unknown Urine clean catch - Urine simmons top Urine Culture - Final Assessment and Plan (1) Leukocytosis: Status: Acute Leukocytosis probable due to alcoholic hepatitis. Less likely gallbladder disease . She has no signs of UTI or pneumonia. She may have occult bacteremia if has varices and cirrhosis, gram negative. Plan Continue Ceftriaxone at 2 g IV daily,and await blood culture and even though WBC under 250 await ascitic culture. Possible 5-7 day antibiotic and change to po Levaquin on discharge. Check HIV and Hepatitis A,B,C. Follow per GI. Time Spent With Patient Time: Total time managing care of this patient today ____ minutes.
[2023-04-22] MEDS: Albumin Human 25 % 100 ML 133.33 ML IV ×2 (12:01→12:49)
[2023-04-22 12:22] LABS: HIV AB/AG Nonreactive (Nonreactive); HIV Num 1 0.04 S/CO (0.00-0.99)
[2023-04-22 14:22] LABS: pH Peritoneal Fluid 7.58
[2023-04-22 14:28] LABS: Albumin Peritoneal Fluid 1.2 GM/DL; Amylase Peritoneal Fluid 42 U/L; Glucose Peritoneal Fluid 94 MG/DL; LDH Peritoneal Fluid 55 U/L; Total Protein Peritoneal Fluid 1.7 GM/DL
--- NOTE | 2023-04-22 14:36 | MHC.SHP ---
Pre-Procedural Eval Section A Date of Service: 04/22/23 The patient is an INPATIENT: Yes The History & Physical has been completed within 30 days and I have reviewed it.: Yes Section B Chief Complaint: Abdominal pain and anemia Allergies: Allergies Allergy/AdvReac Type Severity Reaction Status Date / Time No Known Allergies Allergy Verified 04/18/23 12:36 Plan Diagnosis/Plan: Unchanged I have reviewed the history and physical and performed a pertinent physical examination on my patient. No changes have occurred unless specified. Time Spent With Patient Time: Total time managing care of this patient today ____ minutes.
--- NOTE | 2023-04-22 14:46 | HO.ANESPROP2 ---
[facility] Active Problems Active Problems: All Active Problems (Updated 04/21/23 @ 15:37 by Mikayla Vega MD) Acute on chronic anemia (Acute) Alcohol use disorder (Acute) Acute hypokalemia (Acute) Leukocytosis (Acute) Elevated bilirubin (Acute) Acute alcoholic hepatitis (Acute) Past Medical History Medical History Alcoholism Family History Family history of problems with anesthesia: No Surgical History History of Problems with Anesthesia: No Social History Social History Household Members: Spouse Housing: Apartment Do you presently have visiting nurse or other home services: No Alcohol intake: former Patient Tobacco Use Status: Former Tobacco user Second Hand Smoke Exposure: No Substance Use Type: Marijuana service: No Meds Allergies Allergy/AdvReac Type Severity Reaction Status Date / Time No Known Allergies Allergy Verified 04/18/23 12:36 Active Medications: Current Medications Docusate Sodium (Docusate Sodium 100 Mg Capsule) 100 mg PO DAILY PRN PRN Reason: Constipation Ceftriaxone Sodium 1 gm/ (Sodium Chloride) 50 mls @ 100 mls/hr IV Q24H [facility] Last Infusion: 04/22/23 08:06 Dose: Infused Thiamine HCl 500 mg/ Sodium (Chloride) 105 mls @ 210 mls/hr IV Q12H KATE Stop: 04/24/23 15:59 Last Infusion: 04/22/23 04:02 Dose: Infused Thiamine HCl 100 mg/ Sodium (Chloride) 101 mls @ 202 mls/hr IV DAILY KATE Stop: 04/30/23 08:59 Lorazepam (Lorazepam 2 Mg/Ml Vial) 0.5 mg IVPUSH Q6H PRN PRN Reason: Anxiety Last Admin: 04/22/23 03:27 Dose: 0.5 mg Ondansetron HCl (Ondansetron Hcl 4 Mg/2 Ml Vial) 4 mg IVPUSH Q8H PRN PRN Reason: Nausea and Vomiting Sodium Chloride (0.9 % Sodium Chloride Flush 3 Ml Syringe) 3 ml IVFLUSH QSHIFT KATE Last Admin: 04/22/23 07:26 Dose: 3 ml Home Medications Medication Instructions Recorded Confirmed Last Taken Type No Known Home Meds 04/18/23 04/18/23 Unknown History Exam Exam Date and Time: April 22, 2023 1446 Height,Weight and Vital Signs: Height 5 ft 3 in Weight 58.967 kg Last Vital Signs Temp 97.5 F 04/22/23 14:10 Pulse 94 04/22/23 14:10 Resp 16 04/22/23 11:00 BP 114/75 04/22/23 14:10 Pulse Ox 92 04/22/23 14:10 O2 Del Method Room Air 04/22/23 14:10 O2 Flow Rate 2 04/22/23 11:00 Pertinent Lab Results Pertinent Lab Results: Laboratory Tests 04/18/23 04/18/23 04/18/23 13:12 13:12 13:12 WBC 26.7 H RBC 2.40 L Hgb 8.7 L Hct 26.9 L MCV 112.1 H MCH 36.3 H MCHC 32.3 RDW 21.9 H Plt Count 338 MPV 10.9 Immature Gran % (Auto) 0.9 H Neut % (Auto) 85.3 H Lymph % (Auto) 8.0 L [place] % (Auto) 4.8 Eos % (Auto) 0.5 Baso % (Auto) 0.5 Lymph # (Auto) 2.1 [place] # (Auto) 1.3 H Eos # (Auto) 0.1 Baso # (Auto) 0.1 Abs Immat Gran (auto) 0.25 H Absolute Neuts (auto) 22.7 H Absolute Nucleated RBC 0.050 H Nucleated RBC % (auto) 0.2 Neutrophils % (Manual) Band Neutrophils % Lymphocytes % (Manual) Monocytes % (Manual) Eosinophils % (Manual) Basophils % (Manual) Metamyelocytes % Abs Neuts (Manual) Lymphocytes # (Manual) Monocytes # (Manual) Eosinophils # (Manual) Basophils # (Manual) Metamyelocytes # Platelet Estimate Plt Morphology Comment RBC Morphology Polychromasia Hypochromasia Macrocytosis Target Cells Rm-Elias-Fela Solis Bodies Smear Tech's Comments VERIFIED Smear Path Review SEE NOTE PT 19.1 H INR 1.6 H APTT 38.0 H Sodium 128 L Potassium 3.0 L D Chloride 88 L Carbon Dioxide 25 Anion Gap 18 BUN 12 Creatinine 0.71 Estim Creat Clear Calc 78.4 Estimated GFR > 60 Random Glucose 120 H Lactic Acid Lactic Acid F/U @ 2Hr Calcium 8.2 L D Magnesium 2.0 Iron TIBC % Saturation Unsat Iron Binding Ferritin Total Bilirubin 7.9 H Direct Bilirubin AST 96 H ALT 18 Alkaline Phosphatase 212 H Total Protein 5.7 L Albumin 2.5 L Triglycerides Cholesterol LDL Cholesterol, Calc HDL Cholesterol Lipase 31 Vitamin B12 Folate Beta HCG, Quant Urine Color Urine Appearance Urine pH Ur Specific [place] Urine Protein Urine Glucose (UA) Urine Ketones Urine Blood Urine Nitrite Ur Leukocyte Esterase Urine RBC Urine WBC Ur Squamous Epith Cells Urine Bacteria Hyaline Casts Peritoneal pH Peritoneal WBC Peritoneal RBC Periton Neutrophils Periton Lymphocytes Peritoneal Other Cells Peritoneal Tot Protein Peritoneal Albumin Peritoneal LDH Peritoneal Glucose Peritoneal Amylase Hepatitis A IgM Ab Hep Bs Antigen Hep Bs Antibody Hep B Core Total Ab Hepatitis C Ab (EIA) HIV 1&2 Ab/P24 Ag 4thGn Blood Type Antibody Screen Crossmatch 04/18/23 04/18/23 04/18/23 13:12 13:12 17:55 WBC RBC Hgb Hct MCV MCH MCHC RDW Plt Count MPV Immature Gran % (Auto) Neut % (Auto) Lymph % (Auto) [place] % (Auto) Eos % (Auto) Baso % (Auto) Lymph # (Auto) [place] # (Auto) Eos # (Auto) Baso # (Auto) Abs Immat Gran (auto) Absolute Neuts (auto) Absolute Nucleated RBC Nucleated RBC % (auto) Neutrophils % (Manual) Band Neutrophils % Lymphocytes % (Manual) Monocytes % (Manual) Eosinophils % (Manual) Basophils % (Manual) Metamyelocytes % Abs Neuts (Manual) Lymphocytes # (Manual) Monocytes # (Manual) Eosinophils # (Manual) Basophils # (Manual) Metamyelocytes # Platelet Estimate Plt Morphology Comment RBC Morphology Polychromasia Hypochromasia Macrocytosis Target Cells Rm-Elias-Fela Solis Bodies Smear Tech's Comments Smear Path Review PT INR APTT Sodium Potassium Chloride Carbon Dioxide Anion Gap BUN Creatinine Estim Creat Clear Calc Estimated GFR Random Glucose Lactic Acid Lactic Acid F/U @ 2Hr Calcium Magnesium Iron TIBC % Saturation Unsat Iron Binding Ferritin Total Bilirubin Direct Bilirubin AST ALT Alkaline Phosphatase Total Protein Albumin Triglycerides Cholesterol LDL Cholesterol, Calc HDL Cholesterol Lipase Vitamin B12 Cancelled Folate Cancelled Beta HCG, Quant < 2 Urine Color Dark Yellow Urine Appearance Cloudy Urine pH 5.5 Ur Specific [place] 1.020 Urine Protein Trace Urine Glucose (UA) Negative Urine Ketones Negative Urine Blood Negative Urine Nitrite Positive H Ur Leukocyte Esterase Small (1+) H Urine RBC 6-10 H Urine WBC 0-5 Ur Squamous Epith Cells 11-20 Urine Bacteria 1+ Hyaline Casts 6-10 Peritoneal pH Peritoneal WBC Peritoneal RBC Periton Neutrophils Periton Lymphocytes Peritoneal Other Cells Peritoneal Tot Protein Peritoneal Albumin Peritoneal LDH Peritoneal Glucose Peritoneal Amylase Hepatitis A IgM Ab Hep Bs Antigen Hep Bs Antibody Hep B Core Total Ab Hepatitis C Ab (EIA) HIV 1&2 Ab/P24 Ag 4thGn Blood Type Antibody Screen Crossmatch 04/18/23 04/18/23 04/19/23 18:19 21:04 04:38 WBC 26.9 H RBC 2.13 L Hgb 7.9 L Hct 23.6 L MCV 110.8 H MCH 37.1 H MCHC 33.5 RDW 21.2 H Plt Count 338 MPV 11.4 Immature Gran % (Auto) Neut % (Auto) Lymph % (Auto) [place] % (Auto) Eos % (Auto) Baso % (Auto) Lymph # (Auto) [place] # (Auto) Eos # (Auto) Baso # (Auto) Abs Immat Gran (auto) Absolute Neuts (auto) Absolute Nucleated RBC 0.030 H Nucleated RBC % (auto) 0.1 Neutrophils % (Manual) Band Neutrophils % Lymphocytes % (Manual) Monocytes % (Manual) Eosinophils % (Manual) Basophils % (Manual) Metamyelocytes % Abs Neuts (Manual) Lymphocytes # (Manual) Monocytes # (Manual) Eosinophils # (Manual) Basophils # (Manual) Metamyelocytes # Platelet Estimate Plt Morphology Comment RBC Morphology Polychromasia Hypochromasia Macrocytosis Target Cells Rm-Elias-Fela Solis Bodies Smear Tech's Comments Smear Path Review PT INR APTT Sodium Potassium Chloride Carbon Dioxide Anion Gap BUN Creatinine Estim Creat Clear Calc Estimated GFR Random Glucose Lactic Acid 2.2 H* Lactic Acid F/U @ 2Hr 1.9 Calcium Magnesium Iron TIBC % Saturation Unsat Iron Binding Ferritin Total Bilirubin Direct Bilirubin AST ALT Alkaline Phosphatase Total Protein Albumin Triglycerides Cholesterol LDL Cholesterol, Calc HDL Cholesterol Lipase Vitamin B12 Folate Beta HCG, Quant Urine Color Urine Appearance Urine pH Ur Specific [place] Urine Protein Urine Glucose (UA) Urine Ketones Urine Blood Urine Nitrite Ur Leukocyte Esterase Urine RBC Urine WBC Ur Squamous Epith Cells Urine Bacteria Hyaline Casts Peritoneal pH Peritoneal WBC Peritoneal RBC Periton Neutrophils Periton Lymphocytes Peritoneal Other Cells Peritoneal Tot Protein Peritoneal Albumin Peritoneal LDH Peritoneal Glucose Peritoneal Amylase Hepatitis A IgM Ab Hep Bs Antigen Hep Bs Antibody Hep B Core Total Ab Hepatitis C Ab (EIA) HIV 1&2 Ab/P24 Ag 4thGn Blood Type Antibody Screen Crossmatch 04/19/23 04/19/23 04/19/23 04:38 08:42 08:42 WBC 27.0 H RBC 2.07 L Hgb 7.4 L Hct 23.3 L MCV 112.6 H MCH 35.7 H MCHC 31.8 RDW 21.6 H Plt Count 336 MPV 11.0 Immature Gran % (Auto) Neut % (Auto) Lymph % (Auto) [place] % (Auto) Eos % (Auto) Baso % (Auto) Lymph # (Auto) [place] # (Auto) Eos # (Auto) Baso # (Auto) Abs Immat Gran (auto) Absolute Neuts (auto) Absolute Nucleated RBC 0.030 H Nucleated RBC % (auto) 0.1 Neutrophils % (Manual) Band Neutrophils % Lymphocytes % (Manual) Monocytes % (Manual) Eosinophils % (Manual) Basophils % (Manual) Metamyelocytes % Abs Neuts (Manual) Lymphocytes # (Manual) Monocytes # (Manual) Eosinophils # (Manual) Basophils # (Manual) Metamyelocytes # Platelet Estimate Plt Morphology Comment RBC Morphology Polychromasia Hypochromasia Macrocytosis Target Cells Rm-Elias-Fela Solis Bodies Smear Tech's Comments Smear Path Review PT INR APTT Sodium 130 L Potassium 3.0 L Chloride 92 L Carbon Dioxide 25 Anion Gap 16 BUN 10 Creatinine 0.66 Estim Creat Clear Calc 84.3 Estimated GFR > 60 Random Glucose 100 Lactic Acid Lactic Acid F/U @ 2Hr Calcium 7.7 L D Magnesium Iron 56 TIBC 131 L % Saturation 43 Unsat Iron Binding 75 Ferritin Total Bilirubin Direct Bilirubin AST ALT Alkaline Phosphatase Total Protein Albumin Triglycerides 168 Cholesterol 194 LDL Cholesterol, Calc 153 HDL Cholesterol 8 Lipase Vitamin B12 Folate Beta HCG, Quant Urine Color Urine Appearance Urine pH Ur Specific [place] Urine Protein Urine Glucose (UA) Urine Ketones Urine Blood Urine Nitrite Ur Leukocyte Esterase Urine RBC Urine WBC Ur Squamous Epith Cells Urine Bacteria Hyaline Casts Peritoneal pH Peritoneal WBC Peritoneal RBC Periton Neutrophils Periton Lymphocytes Peritoneal Other Cells Peritoneal Tot Protein Peritoneal Albumin Peritoneal LDH Peritoneal Glucose Peritoneal Amylase Hepatitis A IgM Ab Hep Bs Antigen Hep Bs Antibody Hep B Core Total Ab Hepatitis C Ab (EIA) HIV 1&2 Ab/P24 Ag 4thGn Blood Type Antibody Screen Crossmatch 04/20/23 04/20/23 04/20/23 08:02 08:02 08:02 WBC RBC Hgb Hct MCV MCH MCHC RDW Plt Count MPV Immature Gran % (Auto) Neut % (Auto) Lymph % (Auto) [place] % (Auto) Eos % (Auto) Baso % (Auto) Lymph # (Auto) [place] # (Auto) Eos # (Auto) Baso # (Auto) Abs Immat Gran (auto) Absolute Neuts (auto) Absolute Nucleated RBC Nucleated RBC % (auto) Neutrophils % (Manual) Band Neutrophils % Lymphocytes % (Manual) Monocytes % (Manual) Eosinophils % (Manual) Basophils % (Manual) Metamyelocytes % Abs Neuts (Manual) Lymphocytes # (Manual) Monocytes # (Manual) Eosinophils # (Manual) Basophils # (Manual) Metamyelocytes # Platelet Estimate Plt Morphology Comment RBC Morphology Polychromasia Hypochromasia Macrocytosis Target Cells Rm-Elias-Fela Solis Bodies Smear Tech's Comments Smear Path Review PT INR APTT Sodium 130 L Potassium 3.2 L Chloride 95 L Carbon Dioxide 24 Anion Gap 14 BUN 10 Creatinine 0.65 Estim Creat Clear Calc 85.6 Estimated GFR > 60 Random Glucose 94 Lactic Acid Lactic Acid F/U @ 2Hr Calcium 7.6 L Magnesium Iron 69 TIBC 122 L % Saturation 57 H Unsat Iron Binding 53 Ferritin 642 H Total Bilirubin 5.5 H Direct Bilirubin 4.3 H AST 76 H ALT 16 Alkaline Phosphatase 179 H Total Protein 4.8 L Albumin 2.1 L Triglycerides Cholesterol LDL Cholesterol, Calc HDL Cholesterol Lipase Vitamin B12 Folate Beta HCG, Quant Urine Color Urine Appearance Urine pH Ur Specific [place] Urine Protein Urine Glucose (UA) Urine Ketones Urine Blood Urine Nitrite Ur Leukocyte Esterase Urine RBC Urine WBC Ur Squamous Epith Cells Urine Bacteria Hyaline Casts Peritoneal pH Peritoneal WBC Peritoneal RBC Periton Neutrophils Periton Lymphocytes Peritoneal Other Cells Peritoneal Tot Protein Peritoneal Albumin Peritoneal LDH Peritoneal Glucose Peritoneal Amylase Hepatitis A IgM Ab Nonreactive Hep Bs Antigen Negative Hep Bs Antibody NONREACTIVE Hep B Core Total Ab Nonreactive Hepatitis C Ab (EIA) Nonreactive HIV 1&2 Ab/P24 Ag 4thGn Blood Type Antibody Screen Crossmatch 04/20/23 04/20/23 04/20/23 08:02 14:46 14:46 WBC RBC Hgb 8.4 L Hct 25.9 L MCV MCH MCHC RDW Plt Count MPV Immature Gran % (Auto) Neut % (Auto) Lymph % (Auto) [place] % (Auto) Eos % (Auto) Baso % (Auto) Lymph # (Auto) [place] # (Auto) Eos # (Auto) Baso # (Auto) Abs Immat Gran (auto) Absolute Neuts (auto) Absolute Nucleated RBC Nucleated RBC % (auto) Neutrophils % (Manual) Band Neutrophils % Lymphocytes % (Manual) Monocytes % (Manual) Eosinophils % (Manual) Basophils % (Manual) Metamyelocytes % Abs Neuts (Manual) Lymphocytes # (Manual) Monocytes # (Manual) Eosinophils # (Manual) Basophils # (Manual) Metamyelocytes # Platelet Estimate Plt Morphology Comment RBC Morphology Polychromasia Hypochromasia Macrocytosis Target Cells Rm-Elias-Fela Solis Bodies Smear Tech's Comments Smear Path Review PT INR APTT Sodium Potassium Chloride Carbon Dioxide Anion Gap BUN Creatinine Estim Creat Clear Calc Estimated GFR Random Glucose Lactic Acid Lactic Acid F/U @ 2Hr Calcium Magnesium 2.1 Iron TIBC % Saturation Unsat Iron Binding Ferritin Total Bilirubin Direct Bilirubin AST ALT Alkaline Phosphatase Total Protein Albumin Triglycerides Cholesterol LDL Cholesterol, Calc HDL Cholesterol Lipase Vitamin B12 1950 H Folate 5.0 Beta HCG, Quant Urine Color Urine Appearance Urine pH Ur Specific [place] Urine Protein Urine Glucose (UA) Urine Ketones Urine Blood Urine Nitrite Ur Leukocyte Esterase Urine RBC Urine WBC Ur Squamous Epith Cells Urine Bacteria Hyaline Casts Peritoneal pH Peritoneal WBC Peritoneal RBC Periton Neutrophils Periton Lymphocytes Peritoneal Other Cells Peritoneal Tot Protein Peritoneal Albumin Peritoneal LDH Peritoneal Glucose Peritoneal Amylase Hepatitis A IgM Ab Hep Bs Antigen Hep Bs Antibody Hep B Core Total Ab Hepatitis C Ab (EIA) HIV 1&2 Ab/P24 Ag 4thGn Blood Type Antibody Screen Crossmatch 04/21/23 04/21/23 04/21/23 05:45 05:45 05:45 WBC 24.7 H RBC 1.90 L Hgb 6.9 L* Hct 21.7 L MCV 114.2 H MCH 36.3 H MCHC 31.8 RDW 19.9 H Plt Count 296 MPV 10.8 Immature Gran % (Auto) Cancelled Neut % (Auto) Cancelled Lymph % (Auto) Cancelled [place] % (Auto) Cancelled Eos % (Auto) Cancelled Baso % (Auto) Cancelled Lymph # (Auto) Cancelled [place] # (Auto) Cancelled Eos # (Auto) Cancelled Baso # (Auto) Cancelled Abs Immat Gran (auto) Cancelled Absolute Neuts (auto) Cancelled Absolute Nucleated RBC 0.020 H Nucleated RBC % (auto) 0.1 Neutrophils % (Manual) 71 Band Neutrophils % 11 H Lymphocytes % (Manual) 11 L Monocytes % (Manual) 2 Eosinophils % (Manual) 2 Basophils % (Manual) 1 Metamyelocytes % 2 Abs Neuts (Manual) 20.3 H Lymphocytes # (Manual) 2.7 Monocytes # (Manual) 0.5 Eosinophils # (Manual) 0.5 H Basophils # (Manual) 0.2 Metamyelocytes # 0.5 Platelet Estimate NORMAL Plt Morphology Comment NORMAL RBC Morphology NOTED Polychromasia 2+ (3-5) Hypochromasia 1+ (5-14) Macrocytosis 2+ (15-30) Target Cells 1+ (5-14) Rm-Elias-Fela Solis Bodies PRESENT Smear Tech's Comments MANUAL DIFF Smear Path Review PT INR APTT Sodium 132 L Potassium 3.3 Chloride 97 Carbon Dioxide 24 Anion Gap 14 BUN 8 L Creatinine 0.62 Estim Creat Clear Calc 89.8 Estimated GFR > 60 Random Glucose 91 Lactic Acid Lactic Acid F/U @ 2Hr Calcium 8.3 L D Magnesium Iron TIBC % Saturation Unsat Iron Binding Ferritin Total Bilirubin 5.1 H Direct Bilirubin 3.9 H AST 68 H ALT 15 Alkaline Phosphatase 152 H Total Protein 5.2 L Albumin 3.0 L Triglycerides Cholesterol LDL Cholesterol, Calc HDL Cholesterol Lipase Vitamin B12 Folate Beta HCG, Quant Urine Color Urine Appearance Urine pH Ur Specific [place] Urine Protein Urine Glucose (UA) Urine Ketones Urine Blood Urine Nitrite Ur Leukocyte Esterase Urine RBC Urine WBC Ur Squamous Epith Cells Urine Bacteria Hyaline Casts Peritoneal pH Peritoneal WBC Peritoneal RBC Periton Neutrophils Periton Lymphocytes Peritoneal Other Cells Peritoneal Tot Protein Peritoneal Albumin Peritoneal LDH Peritoneal Glucose Peritoneal Amylase Hepatitis A IgM Ab Hep Bs Antigen Hep Bs Antibody Hep B Core Total Ab Hepatitis C Ab (EIA) HIV 1&2 Ab/P24 Ag 4thGn Blood Type Antibody Screen Crossmatch 04/21/23 04/21/23 04/21/23 07:47 15:07 15:07 WBC RBC Hgb 10.2 L D Hct 32.2 L D MCV MCH MCHC RDW Plt Count MPV Immature Gran % (Auto) Neut % (Auto) Lymph % (Auto) [place] % (Auto) Eos % (Auto) Baso % (Auto) Lymph # (Auto) [place] # (Auto) Eos # (Auto) Baso # (Auto) Abs Immat Gran (auto) Absolute Neuts (auto) Absolute Nucleated RBC Nucleated RBC % (auto) Neutrophils % (Manual) Band Neutrophils % Lymphocytes % (Manual) Monocytes % (Manual) Eosinophils % (Manual) Basophils % (Manual) Metamyelocytes % Abs Neuts (Manual) Lymphocytes # (Manual) Monocytes # (Manual) Eosinophils # (Manual) Basophils # (Manual) Metamyelocytes # Platelet Estimate Plt Morphology Comment RBC Morphology Polychromasia Hypochromasia Macrocytosis Target Cells Rm-Elias-Fela Solis Bodies Smear Tech's Comments Smear Path Review PT 21.1 H INR 1.7 H APTT Sodium Potassium Chloride Carbon Dioxide Anion Gap BUN Creatinine Estim Creat Clear Calc Estimated GFR Random Glucose Lactic Acid Lactic Acid F/U @ 2Hr Calcium Magnesium Iron TIBC % Saturation Unsat Iron Binding Ferritin Total Bilirubin Direct Bilirubin AST ALT Alkaline Phosphatase Total Protein Albumin Triglycerides Cholesterol LDL Cholesterol, Calc HDL Cholesterol Lipase Vitamin B12 Folate Beta HCG, Quant Urine Color Urine Appearance Urine pH Ur Specific [place] Urine Protein Urine Glucose (UA) Urine Ketones Urine Blood Urine Nitrite Ur Leukocyte Esterase Urine RBC Urine WBC Ur Squamous Epith Cells Urine Bacteria Hyaline Casts Peritoneal pH Peritoneal WBC Peritoneal RBC Periton Neutrophils Periton Lymphocytes Peritoneal Other Cells Peritoneal Tot Protein Peritoneal Albumin Peritoneal LDH Peritoneal Glucose Peritoneal Amylase Hepatitis A IgM Ab Hep Bs Antigen Hep Bs Antibody Hep B Core Total Ab Hepatitis C Ab (EIA) HIV 1&2 Ab/P24 Ag 4thGn Blood Type A Positive Antibody Screen NEGATIVE Crossmatch See Detail 04/21/23 04/21/23 04/22/23 18:28 21:35 03:17 WBC RBC Hgb Hct MCV MCH MCHC RDW Plt Count MPV Immature Gran % (Auto) Neut % (Auto) Lymph % (Auto) [place] % (Auto) Eos % (Auto) Baso % (Auto) Lymph # (Auto) [place] # (Auto) Eos # (Auto) Baso # (Auto) Abs Immat Gran (auto) Absolute Neuts (auto) Absolute Nucleated RBC Nucleated RBC % (auto) Neutrophils % (Manual) Band Neutrophils % Lymphocytes % (Manual) Monocytes % (Manual) Eosinophils % (Manual) Basophils % (Manual) Metamyelocytes % Abs Neuts (Manual) Lymphocytes # (Manual) Monocytes # (Manual) Eosinophils # (Manual) Basophils # (Manual) Metamyelocytes # Platelet Estimate Plt Morphology Comment RBC Morphology Polychromasia Hypochromasia Macrocytosis Target Cells Rm-Elias-Fela Solis Bodies Smear Tech's Comments Smear Path Review PT INR APTT Sodium Potassium Chloride Carbon Dioxide Anion Gap BUN Creatinine Estim Creat Clear Calc Estimated GFR Random Glucose Lactic Acid 1.5 Lactic Acid F/U @ 2Hr Calcium Magnesium Iron TIBC % Saturation Unsat Iron Binding Ferritin Total Bilirubin Direct Bilirubin AST ALT Alkaline Phosphatase Total Protein 5.2 L Albumin Triglycerides Cholesterol LDL Cholesterol, Calc HDL Cholesterol Lipase Vitamin B12 Folate Beta HCG, Quant Urine Color Dark Yellow Urine Appearance Clear Urine pH 6.0 Ur Specific [place] 1.015 Urine Protein Trace Urine Glucose (UA) Negative Urine Ketones Negative Urine Blood Negative Urine Nitrite Positive H Ur Leukocyte Esterase Trace H Urine RBC 3-5 H Urine WBC 0-5 Ur Squamous Epith Cells 6-10 Urine Bacteria Trace Hyaline Casts 0-2 Peritoneal pH Peritoneal WBC Peritoneal RBC Periton Neutrophils Periton Lymphocytes Peritoneal Other Cells Peritoneal Tot Protein Peritoneal Albumin Peritoneal LDH Peritoneal Glucose Peritoneal Amylase Hepatitis A IgM Ab Hep Bs Antigen Hep Bs Antibody Hep B Core Total Ab Hepatitis C Ab (EIA) HIV 1&2 Ab/P24 Ag 4thGn Blood Type Antibody Screen Crossmatch 04/22/23 04/22/23 04/22/23 05:57 05:57 05:57 WBC 27.1 H RBC 2.53 L D Hgb 9.0 L Hct 27.9 L MCV 110.3 H MCH 35.6 H MCHC 32.3 RDW Not Reportable Plt Count 304 MPV 11.4 Immature Gran % (Auto) 0.9 H Neut % (Auto) 85.6 H Lymph % (Auto) 6.8 L [place] % (Auto) 5.1 Eos % (Auto) 0.8 Baso % (Auto) 0.8 Lymph # (Auto) 1.9 [place] # (Auto) 1.4 H Eos # (Auto) 0.2 Baso # (Auto) 0.2 Abs Immat Gran (auto) 0.24 H Absolute Neuts (auto) 23.1 H Absolute Nucleated RBC 0.000 Nucleated RBC % (auto) 0.0 Neutrophils % (Manual) Band Neutrophils % Lymphocytes % (Manual) Monocytes % (Manual) Eosinophils % (Manual) Basophils % (Manual) Metamyelocytes % Abs Neuts (Manual) Lymphocytes # (Manual) Monocytes # (Manual) Eosinophils # (Manual) Basophils # (Manual) Metamyelocytes # Platelet Estimate Plt Morphology Comment RBC Morphology Polychromasia Hypochromasia Macrocytosis Target Cells Rm-Elias-Fela Solis Bodies Smear Tech's Comments VERIFIED Smear Path Review PT INR APTT Sodium 136 Potassium 3.4 Chloride 102 Carbon Dioxide 26 Anion Gap 11 L BUN 8 L Creatinine 0.53 Estim Creat Clear Calc 105.0 Estimated GFR > 60 Random Glucose 84 Lactic Acid Lactic Acid F/U @ 2Hr Calcium 8.1 L Magnesium Iron TIBC % Saturation Unsat Iron Binding Ferritin Total Bilirubin 7.5 H Direct Bilirubin 5.7 H AST 64 H ALT 12 Alkaline Phosphatase 141 H Total Protein 4.8 L Albumin 2.7 L Triglycerides Cholesterol LDL Cholesterol, Calc HDL Cholesterol Lipase Vitamin B12 Folate Beta HCG, Quant Urine Color Urine Appearance Urine pH Ur Specific [place] Urine Protein Urine Glucose (UA) Urine Ketones Urine Blood Urine Nitrite Ur Leukocyte Esterase Urine RBC Urine WBC Ur Squamous Epith Cells Urine Bacteria Hyaline Casts Peritoneal pH Peritoneal WBC Peritoneal RBC Periton Neutrophils Periton Lymphocytes Peritoneal Other Cells Peritoneal Tot Protein Peritoneal Albumin Peritoneal LDH Peritoneal Glucose Peritoneal Amylase Hepatitis A IgM Ab Hep Bs Antigen Hep Bs Antibody Hep B Core Total Ab Hepatitis C Ab (EIA) HIV 1&2 Ab/P24 Ag 4thGn Blood Type Antibody Screen Crossmatch 04/22/23 04/22/23 04/22/23 05:57 09:40 09:40 WBC RBC Hgb Hct MCV MCH MCHC RDW Plt Count MPV Immature Gran % (Auto) Neut % (Auto) Lymph % (Auto) [place] % (Auto) Eos % (Auto) Baso % (Auto) Lymph # (Auto) [place] # (Auto) Eos # (Auto) Baso # (Auto) Abs Immat Gran (auto) Absolute Neuts (auto) Absolute Nucleated RBC Nucleated RBC % (auto) Neutrophils % (Manual) Band Neutrophils % Lymphocytes % (Manual) Monocytes % (Manual) Eosinophils % (Manual) Basophils % (Manual) Metamyelocytes % Abs Neuts (Manual) Lymphocytes # (Manual) Monocytes # (Manual) Eosinophils # (Manual) Basophils # (Manual) Metamyelocytes # Platelet Estimate Plt Morphology Comment RBC Morphology Polychromasia Hypochromasia Macrocytosis Target Cells Rm-Elias-Fela Solis Bodies Smear Tech's Comments Smear Path Review PT 22.6 H INR 1.9 H APTT Sodium Potassium Chloride Carbon Dioxide Anion Gap BUN Creatinine Estim Creat Clear Calc Estimated GFR Random Glucose Lactic Acid Lactic Acid F/U @ 2Hr Calcium Magnesium Iron TIBC % Saturation Unsat Iron Binding Ferritin Total Bilirubin Direct Bilirubin AST ALT Alkaline Phosphatase Total Protein Albumin Triglycerides Cholesterol LDL Cholesterol, Calc HDL Cholesterol Lipase Vitamin B12 Folate Beta HCG, Quant Urine Color Urine Appearance Urine pH Ur Specific [place] Urine Protein Urine Glucose (UA) Urine Ketones Urine Blood Urine Nitrite Ur Leukocyte Esterase Urine RBC Urine WBC Ur Squamous Epith Cells Urine Bacteria Hyaline Casts Peritoneal pH Peritoneal WBC 0.084 Peritoneal RBC < 0.002 Periton Neutrophils 3 Periton Lymphocytes 21 Peritoneal Other Cells 76 Peritoneal Tot Protein 1.7 Peritoneal Albumin 1.2 Peritoneal LDH 55 Peritoneal Glucose 94 Peritoneal Amylase 42 Hepatitis A IgM Ab Hep Bs Antigen Hep Bs Antibody Hep B Core Total Ab Hepatitis C Ab (EIA) HIV 1&2 Ab/P24 Ag 4thGn Blood Type Antibody Screen Crossmatch 04/22/23 04/22/23 09:40 11:33 WBC RBC Hgb Hct MCV MCH MCHC RDW Plt Count MPV Immature Gran % (Auto) Neut % (Auto) Lymph % (Auto) [place] % (Auto) Eos % (Auto) Baso % (Auto) Lymph # (Auto) [place] # (Auto) Eos # (Auto) Baso # (Auto) Abs Immat Gran (auto) Absolute Neuts (auto) Absolute Nucleated RBC Nucleated RBC % (auto) Neutrophils % (Manual) Band Neutrophils % Lymphocytes % (Manual) Monocytes % (Manual) Eosinophils % (Manual) Basophils % (Manual) Metamyelocytes % Abs Neuts (Manual) Lymphocytes # (Manual) Monocytes # (Manual) Eosinophils # (Manual) Basophils # (Manual) Metamyelocytes # Platelet Estimate Plt Morphology Comment RBC Morphology Polychromasia Hypochromasia Macrocytosis Target Cells Rm-Elias-Fela Solis Bodies Smear Tech's Comments Smear Path Review PT INR APTT Sodium Potassium Chloride Carbon Dioxide Anion Gap BUN Creatinine Estim Creat Clear Calc Estimated GFR Random Glucose Lactic Acid Lactic Acid F/U @ 2Hr Calcium Magnesium Iron TIBC % Saturation Unsat Iron Binding Ferritin Total Bilirubin Direct Bilirubin AST ALT Alkaline Phosphatase Total Protein Albumin Triglycerides Cholesterol LDL Cholesterol, Calc HDL Cholesterol Lipase Vitamin B12 Folate Beta HCG, Quant Urine Color Urine Appearance Urine pH Ur Specific [place] Urine Protein Urine Glucose (UA) Urine Ketones Urine Blood Urine Nitrite Ur Leukocyte Esterase Urine RBC Urine WBC Ur Squamous Epith Cells Urine Bacteria Hyaline Casts Peritoneal pH 7.58 Peritoneal WBC Peritoneal RBC Periton Neutrophils Periton Lymphocytes Peritoneal Other Cells Peritoneal Tot Protein Peritoneal Albumin Peritoneal LDH Peritoneal Glucose Peritoneal Amylase Hepatitis A IgM Ab Hep Bs Antigen Hep Bs Antibody Hep B Core Total Ab Hepatitis C Ab (EIA) HIV 1&2 Ab/P24 Ag 4thGn Nonreactive Blood Type Antibody Screen Crossmatch Airway Mallampati Class: III TM Dist: >3cm Neck ROM: Full Loose/Missing/Broken Teeth: No Heart: rrr Lungs: clear Assessment and Plan Final Anesthetic Review Family History of Problems with Anesthesia: No History of Problems with Anesthesia: No NPO: Yes ASA Class: IV and Emergency Final Preanesthetic Review: No Changes in Pt Med Stat, Meds/Allgs Chart Reviewed, Consent Obtained/Reviewed and Anes Risks/Benef Reviewed Patient Risk: Intermediate Procedure Risk: Low Anesthetic Plan Anesthetic Plan: MAC: Disposition: Standard PACU
--- NOTE | 2023-04-22 15:07 | HO.PM.IMPN ---
Subjective Subjective Date of Service: 04/22/23 Interval History: Acute Macrocytic anemia,Acute alcoholic hepatitis Review of Systems received 1 prbc yesterday feels genelaly weak s/p paracentesis -3 liter fluid removed. no new c/o- abd pain or sob. Physical Exam Vital Signs: Vital Signs: Last Vital Signs Temp 97.5 F 04/22/23 14:10 Pulse 94 04/22/23 14:10 Resp 16 04/22/23 11:00 BP 114/75 04/22/23 14:10 Pulse Ox 92 04/22/23 14:10 O2 Del Method Room Air 04/22/23 14:10 O2 Flow Rate 2 04/22/23 11:00 BMI result Body Mass Index 23.0 Appearance: Alert.? Oriented X3.? ch sick,generalised weak.? Eyes: Pupils equal, round and reactive to light.? Sclera icteric.? cvs: rrr, [id number] . res: clear to auscultation ,no rhonchii or wheezing abd: no rebound or guarding ,nt, bs present. ext pulses present , no cyanosis. neuro: axo3 , nonfocal. Objective Data Active Medications Docusate Sodium (Docusate Sodium 100 Mg Capsule) 100 mg PO DAILY PRN PRN Reason: Constipation Ceftriaxone Sodium 1 gm/ (Sodium Chloride) 50 mls @ 100 mls/hr IV Q24H KATE Last Infusion: 04/22/23 08:06 Dose: 0 mls/hr Documented By: STEPHANIE Thiamine HCl 500 mg/ Sodium (Chloride) 105 mls @ 210 mls/hr IV Q12H KATE Stop: 04/24/23 15:59 Last Infusion: 04/22/23 04:02 Dose: 0 mls/hr Documented By: ZAK Thiamine HCl 100 mg/ Sodium (Chloride) 101 mls @ 202 mls/hr IV DAILY KATE Stop: 04/30/23 08:59 Lorazepam (Lorazepam 2 Mg/Ml Vial) 0.5 mg IVPUSH Q6H PRN PRN Reason: Anxiety Last Admin: 04/22/23 03:27 Dose: 0.5 mg Documented By: ZAK Ondansetron HCl (Ondansetron Hcl 4 Mg/2 Ml Vial) 4 mg IVPUSH Q8H PRN PRN Reason: Nausea and Vomiting Sodium Chloride (0.9 % Sodium Chloride Flush 3 Ml Syringe) 3 ml IVFLUSH QSHIFT [facility] Last Admin: 04/22/23 07:26 Dose: 3 ml Documented By: STEPHANIE Labs 04/22/23 05:57 04/22/23 05:57 Labs: Laboratory Results - last 24 hr 04/21/23 04/21/23 04/21/23 15:07 18:28 21:35 MCV MCH MCHC RDW Plt Count MPV Immature Gran % (Auto) Neut % (Auto) Lymph % (Auto) [place] % (Auto) Eos % (Auto) Baso % (Auto) Lymph # (Auto) [place] # (Auto) Eos # (Auto) Baso # (Auto) Abs Immat Gran (auto) Absolute Neuts (auto) Absolute Nucleated RBC Nucleated RBC % (auto) Smear Tech's Comments PT 21.1 H INR 1.7 H Anion Gap Estim Creat Clear Calc Estimated GFR Random Glucose Lactic Acid 1.5 Calcium Total Bilirubin Direct Bilirubin AST ALT Alkaline Phosphatase Total Protein 5.2 L Albumin Urine Color Urine Appearance Urine pH Ur Specific [place] Urine Protein Urine Glucose (UA) Urine Ketones Urine Blood Urine Nitrite Ur Leukocyte Esterase Urine RBC Urine WBC Ur Squamous Epith Cells Urine Bacteria Hyaline Casts Peritoneal pH Peritoneal WBC Peritoneal RBC Periton Neutrophils Periton Lymphocytes Peritoneal Other Cells Peritoneal Tot Protein Peritoneal Albumin Peritoneal LDH Peritoneal Glucose Peritoneal Amylase HIV 1&2 Ab/P24 Ag 4thGn 04/22/23 04/22/23 04/22/23 03:17 05:57 05:57 MCV 110.3 H MCH 35.6 H MCHC 32.3 RDW Not Reportable Plt Count 304 MPV 11.4 Immature Gran % (Auto) 0.9 H Neut % (Auto) 85.6 H Lymph % (Auto) 6.8 L [place] % (Auto) 5.1 Eos % (Auto) 0.8 Baso % (Auto) 0.8 Lymph # (Auto) 1.9 [place] # (Auto) 1.4 H Eos # (Auto) 0.2 Baso # (Auto) 0.2 Abs Immat Gran (auto) 0.24 H Absolute Neuts (auto) 23.1 H Absolute Nucleated RBC 0.000 Nucleated RBC % (auto) 0.0 Smear Tech's Comments VERIFIED PT INR Anion Gap 11 L Estim Creat Clear Calc 105.0 Estimated GFR > 60 Random Glucose 84 Lactic Acid Calcium 8.1 L Total Bilirubin Direct Bilirubin AST ALT Alkaline Phosphatase Total Protein Albumin Urine Color Dark Yellow Urine Appearance Clear Urine pH 6.0 Ur Specific [place] 1.015 Urine Protein Trace Urine Glucose (UA) Negative Urine Ketones Negative Urine Blood Negative Urine Nitrite Positive H Ur Leukocyte Esterase Trace H Urine RBC 3-5 H Urine WBC 0-5 Ur Squamous Epith Cells 6-10 Urine Bacteria Trace Hyaline Casts 0-2 Peritoneal pH Peritoneal WBC Peritoneal RBC Periton Neutrophils Periton Lymphocytes Peritoneal Other Cells Peritoneal Tot Protein Peritoneal Albumin Peritoneal LDH Peritoneal Glucose Peritoneal Amylase HIV 1&2 Ab/P24 Ag 4thGn 04/22/23 04/22/23 04/22/23 05:57 05:57 09:40 MCV MCH MCHC RDW Plt Count MPV Immature Gran % (Auto) Neut % (Auto) Lymph % (Auto) [place] % (Auto) Eos % (Auto) Baso % (Auto) Lymph # (Auto) [place] # (Auto) Eos # (Auto) Baso # (Auto) Abs Immat Gran (auto) Absolute Neuts (auto) Absolute Nucleated RBC Nucleated RBC % (auto) Smear Tech's Comments PT 22.6 H INR 1.9 H Anion Gap Estim Creat Clear Calc Estimated GFR Random Glucose Lactic Acid Calcium Total Bilirubin 7.5 H Direct Bilirubin 5.7 H AST 64 H ALT 12 Alkaline Phosphatase 141 H Total Protein 4.8 L Albumin 2.7 L Urine Color Urine Appearance Urine pH Ur Specific [place] Urine Protein Urine Glucose (UA) Urine Ketones Urine Blood Urine Nitrite Ur Leukocyte Esterase Urine RBC Urine WBC Ur Squamous Epith Cells Urine Bacteria Hyaline Casts Peritoneal pH Peritoneal WBC 0.084 Peritoneal RBC < 0.002 Periton Neutrophils 3 Periton Lymphocytes 21 Peritoneal Other Cells 76 Peritoneal Tot Protein Peritoneal Albumin Peritoneal LDH Peritoneal Glucose Peritoneal Amylase HIV 1&2 Ab/P24 Ag 4thGn 04/22/23 04/22/23 04/22/23 09:40 09:40 11:33 MCV MCH MCHC RDW Plt Count MPV Immature Gran % (Auto) Neut % (Auto) Lymph % (Auto) [place] % (Auto) Eos % (Auto) Baso % (Auto) Lymph # (Auto) [place] # (Auto) Eos # (Auto) Baso # (Auto) Abs Immat Gran (auto) Absolute Neuts (auto) Absolute Nucleated RBC Nucleated RBC % (auto) Smear Tech's Comments PT INR Anion Gap Estim Creat Clear Calc Estimated GFR Random Glucose Lactic Acid Calcium Total Bilirubin Direct Bilirubin AST ALT Alkaline Phosphatase Total Protein Albumin Urine Color Urine Appearance Urine pH Ur Specific [place] Urine Protein Urine Glucose (UA) Urine Ketones Urine Blood Urine Nitrite Ur Leukocyte Esterase Urine RBC Urine WBC Ur Squamous Epith Cells Urine Bacteria Hyaline Casts Peritoneal pH 7.58 Peritoneal WBC Peritoneal RBC Periton Neutrophils Periton Lymphocytes Peritoneal Other Cells Peritoneal Tot Protein 1.7 Peritoneal Albumin 1.2 Peritoneal LDH 55 Peritoneal Glucose 94 Peritoneal Amylase 42 HIV 1&2 Ab/P24 Ag 4thGn Nonreactive Assessment and Plan (1) Alcohol use disorder: Status: Acute Plan 52 year old women admitted with Alcoholic hepatitis Acute Macrocytic anemia. unspecified HH down to 6.9/21.7 iron 69/TIBC 122/ferritin 642/b12 1950 tx one unit PRBC - h/h in between - check occult stool Acute alcoholic hepatitis Bilirubin 7.9-trending down, AST 64, alk-phos 141, abdominal ultrasound showed hepatomegaly with likely hepatic steatosis with liver parenchymal disease and portal hypertension. Seen by GI-s/p egd -no gross bleed -added prednisone, Thiamine 500mg BIDIV x5 days then decrease to 250mg IV daily x 5 day, then 100mg daily, Folic acid, thiamine, multivitamin, high protein diet . abd us ascitis -s/p paracentesis . leukocytosis. slowly trending down unclear etiology ua mixed doris possible asp pna, treated with rocephin initially, new cxr clear Aspiration pneumonia CXR with findings suggestive of left lower lobe subsegmental atelectasis versus aspiration/early infiltrates initially repeat CXR neg for acute abnornomality, no need for further tx UTI urine cx mixed doris Hyponatremia. 132 secondary to alcohol abuse avoid over correction Hypokalemia repleted and resolved Lactic acidosis, resolved secondary to dehydration Lactic acid 2.2 with repeat 1.9 s/p IV fluids Ataxia Pt states she has had difficulty walking without assistance for past 3 years secondary to alcohol use disorder PT evaluation pending Full Code DVT Prophylaxis: [facility] compression boots in light of anemia Continue hospitalization for treatment of acute alcoholic hepatitis requiring close monitoring and blood transfusion for acute anemia Time Spent With Patient Time: Total time managing care of this patient today ____ minutes. Quality Stroke Does the patient have a stroke diagnosis?: No VTE Prior VTE?: No VTE Risk Level:: Medical - moderate - high VTE Device Contraindication: Treatment Not Indicated VTE Drug Contraindication: N/A - Med Ordered
--- NOTE | 2023-04-22 15:26 | P.OP_ITS ---
Operative Note Operative Note Date of Service: 04/22/23 Narrative: Procedure: Esophagogastroduodenoscopy Endoscopist: Mikayla Vega MD Indication: Anemia Anesthesia Provider: Dr Jim Hagen Anesthesia Type: MAC ?? EGD Procedure:?? The procedure, indications, preparation and potential complications were reviewed with the patient, who indicated understanding and gave written informed consent to proceed. A physical exam was performed. The endoscope was introduced through the mouth, and advanced to the second part of duodenum. The mucosa was carefully examined on slow withdrawal of the endoscope. The patient tolerated the procedure well. There were no immediate complications.? ? EGD Findings:? * Esophagus:? Normal mucosa noted in the entire esophagus. The Z line was at 32 cm. No esophageal varices were noted. There was a small hiatal hernia with the diaphragmatic pinch at 35 cm. * Stomach:? Mild congestion and erythema in mosaic pattern consistent with portal hypertensive gastropathy was noted in the fundus of the stomach, body and antrum appeared normal. Retroflexion was performed to visualise the cardia. Hill grade II hiatal hernia. * Duodenum:? Normal mucosa was noted in the whole of the examined duodenum. Cold forceps biopsies were taken from duodenal bulb and second portion of the duodenum to rule out celiac sprue. ? EGD Impressions:? * Normal esophagus * Mild portal hypertensive gastropathy * Normal duodenum (biopsy) ?? Recommendations:?? * Follow biopsy results. * No obvious source of bleeding was noted. 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 * Consider PT eval and treatment, given significant deconditioning over the past few days Above has been reviewed with the patient.
[2023-04-22] MEDS: predniSONE 20 MG TABLET 40 MG PO (16:02)
[2023-04-22] MEDS: Omeprazole 20 MG CAPSULE.DR PO (16:02)
[2023-04-23 03:32] VITALS: BP 96/57; PULSE 81; RESP 16; TEMP 36.3; O2SAT 93
[2023-04-23] MEDS: Thiamine HCL 500 MG in 0.9 % Sodium Chloride 100 ML 210 MG IV ×2 (03:49→15:43)
[2023-04-23] MEDS: LORazepam 2 MG/ML VIAL 0.5 MG IVPUSH (04:45)
[2023-04-23] MEDS: Omeprazole 20 MG CAPSULE.DR PO (04:48)
[2023-04-23 07:15] VITALS: BP 114/74; PULSE 73; RESP 16; TEMP 36.4; O2SAT 96
[2023-04-23] MEDS: predniSONE 20 MG TABLET 40 MG PO (07:57)
[2023-04-23] MEDS: cefTRIAXone sodium 1 GM in 0.9 % Sodium Chloride 50 ML IV (07:59)
[2023-04-23] MEDS: 0.9 % Sodium Chloride Flush 3 ML SYRINGE IVFLUSH ×2 (08:04→15:43)
[2023-04-23 08:56] LABS: Hematocrit 28.8 % (37.0-47.0); Hemoglobin 9.3 g/dl (12.0-16.0); Mean Corpuscular HGB Conc 32.3 g/dl (31.0-35.0); Mean Corpuscular Hemoglobin 35.8 pg (27.0-33.0); Mean Corpuscular Volume 110.8 fL (80.0-98.0); Mean Platelet Volume 10.9 fL (9.4-12.3); Platelet Count 371 X10*3/uL (160-400); Red Cell Distribution Width 22.4 % (11.0-16.0); White Blood Count 27.6 X10*3/uL (4.8-10.8)
[2023-04-23 09:12] LABS: Alanine Aminotransferase 14 U/L (0-31); Alkaline Phosphatase 142 U/L (39-117); Anion Gap 12 (12-20); Aspartate Amino Transferase 56 U/L (5-31); Bilirubin Total 5.1 mg/dL (0.0-1.0); Blood Urea Nitrogen 10 mg/dL (9-16); Calcium 8.8 mg/dL (8.4-10.2); Carbon Dioxide 26 mmol/L (22-29); Chloride 103 mmol/L (96-108); Creatinine Clr Calc Pharmacy 91.2; Estimated Glomerular Filt Rate > 60; Glucose Random 125 mg/dL (60-115); Potassium 3.5 mmol/L (3.3-5.1); Sodium 137 mmol/L (135-145); Total Protein 5.2 g/dL (6.5-8.0)
[2023-04-23 12:00] VITALS: BP 91/66; PULSE 90; RESP 16; TEMP 36.1; O2SAT 93
--- NOTE | 2023-04-23 12:17 | MHC.CM.PN ---
PATIENT STILL WITH ASCITES AND ELEVATED LFT LEVELS. NO PLAN FOR DC TODAY
--- NOTE | 2023-04-23 13:16 | P.CDIM_ITS ---
PROVIDER RESPONSE TEXT: To clarify, the appropriate diagnosis supported by the clinical indicators: Other (explain): poor oral intake QUERY TEXT: PHYSICIAN'S DOCUMENTATION REQUEST Date of Query: 04/23/2023 07:54 AM EDT Patient Name: CHUCK STORY Admit Date: 04/19/2023 Dear Rashaun Klein, A review of the medical record indicates additional documentation may be needed. Please review below and update the documentation accordingly. Clinical Indicators: Total protein: 4.8 Albumin: 2.7 Nutrition notes PO intake<50% Receiving supplements patient has difficulty walking without assistance for past 3 years secondary to alcohol use disorder. Based on the above, is there a diagnosis that correlates with these lab findings: Malnutrition mild, moderate or severe Labs indicate a diagnosis of (please specify) please specify Nutritional deficiency imbalance of minerals, vitamins etc. Other (explain)Clinically unable to determine (explain)Thank you, Sudha Edwards, CCS, CDIS Use of terms such as suspected, likely, concern for, or probable (associated with a specific diagnosi s that is being evaluated, monitored, or treated as if it exists) are acceptable and can be coded in the inpatient se tting, when documented at the time of discharge. Please use your independent medical judgment in providing your response. THIS QUERY IS PART OF THE PERMANENT MEDICAL RECORD
--- NOTE | 2023-04-23 13:16 | P.CDIM_ITS ---
PROVIDER RESPONSE TEXT: To clarify, the appropriate diagnosis supported by the clinical indicators: Other (explain): poor oral inatke QUERY TEXT: PHYSICIAN'S DOCUMENTATION REQUEST Date of Query: 04/23/2023 09:01 AM EDT Patient Name: CHUCK STORY Admit Date: 04/19/2023 Dear Rashaun Klein, A review of the medical record indicates additional documentation may be needed. Please review below and update the documentation accordingly. Clinical Indicators: LAB FINDINGS: albumin 2.7 IV albumin human Based on the above, is there a diagnosis that correlates with the lab findings: Hypoalbuminemia Labs indicate a diagnosis of (please specify) Other please specify Other (explain)Clinically unable to determine (explain)Thank you, Sudha Edwards, CCS, CDIS Use of terms such as suspected, likely, concern for, or probable (associated with a specific diagnosi s that is being evaluated, monitored, or treated as if it exists) are acceptable and can be coded in the inpatient se tting, when documented at the time of discharge. Please use your independent medical judgment in providing your response. THIS QUERY IS PART OF THE PERMANENT MEDICAL RECORD
--- NOTE | 2023-04-23 13:54 | HO.POSTANES ---
Post Anesthesia Evaluation Post Anesthesia Evaluation Date of Service: 04/23/23 Vital Signs: Vital Signs Temp Pulse Resp BP Pulse Ox O2 Del Method O2 Flow Rate 04/23/23 12:00 96.9 F 90 16 91/66 93 Room Air 04/23/23 07:15 97.5 F 73 16 114/74 96 Nasal Cannula 2 04/23/23 03:32 97.3 F 81 16 96/57 L 93 Nasal Cannula 2 Anesthesia: Monitored Mental Status: Awake Pain Control: Satisfactory Nausea/Vomiting: None Hydration: Adequate Anesthesia-Related Issues: No Anes. Related Issues
--- NOTE | 2023-04-23 14:46 | P.PNIM_ITS ---
Subjective Subjective Date of Service: 04/23/23 Interval History: Acute Macrocytic anemia,Acute alcoholic hepatitis Review of Systems feels genelaly weak. no new c/o- abd? pain or sob. Physical Exam Vital Signs: Vital Signs: Last Vital Signs Temp 96.9 F 04/23/23 12:00 Pulse 90 04/23/23 12:00 Resp 16 04/23/23 12:00 BP 91/66 04/23/23 12:00 Pulse Ox 93 04/23/23 12:00 O2 Del Method Room Air 04/23/23 12:00 O2 Flow Rate 2 04/23/23 07:15 BMI result Body Mass Index 23.0 Appearance: Alert.? Oriented X3.? ch sick,generalised weak.? Eyes: Pupils equal, round and reactive to light.? Sclera icteric.? cvs: rrr, [id number] . res: clear to auscultation ,no rhonchii or wheezing abd: no rebound or guarding ,nt, bs present. ext pulses present , no cyanosis. neuro: axo3 , nonfocal. Objective Data Active Medications Docusate Sodium (Docusate Sodium 100 Mg Capsule) 100 mg PO DAILY PRN PRN Reason: Constipation Ceftriaxone Sodium 1 gm/ (Sodium Chloride) 50 mls @ 100 mls/hr IV Q24H [facility] Last Infusion: 04/23/23 08:43 Dose: 0 mls/hr Documented By: SRI Thiamine HCl 500 mg/ Sodium (Chloride) 105 mls @ 210 mls/hr IV Q12H KATE Stop: 04/24/23 15:59 Last Infusion: 04/23/23 04:24 Dose: 0 mls/hr Documented By: JULIANE Thiamine HCl 100 mg/ Sodium (Chloride) 101 mls @ 202 mls/hr IV DAILY KATE Stop: 04/30/23 08:59 Lorazepam (Lorazepam 2 Mg/Ml Vial) 0.5 mg IVPUSH Q6H PRN PRN Reason: Anxiety Last Admin: 04/23/23 04:45 Dose: 0.5 mg Documented By: JULIANE Omeprazole (Omeprazole 20 Mg Capsule.) 20 mg PO BID@0630,1630 [facility] Last Admin: 04/23/23 04:48 Dose: 20 mg Documented By: JULIANE Ondansetron HCl (Ondansetron Hcl 4 Mg/2 Ml Vial) 4 mg IVPUSH Q8H PRN PRN Reason: Nausea and Vomiting Prednisone (Prednisone 20 Mg Tablet) 40 mg PO DAILY [facility] Last Admin: 04/23/23 07:57 Dose: 40 mg Documented By: SRI Sodium Chloride (0.9 % Sodium Chloride Flush 3 Ml Syringe) 3 ml IVFLUSH QSHIFT [facility] Last Admin: 04/23/23 08:04 Dose: 3 ml Documented By: SRI Labs 04/23/23 08:35 04/23/23 08:35 Labs: Laboratory Results - last 24 hr 04/23/23 04/23/23 08:35 08:35 MCV 110.8 H MCH 35.8 H MCHC 32.3 RDW 22.4 H Plt Count 371 MPV 10.9 Absolute Nucleated RBC 0.000 Nucleated RBC % (auto) 0.0 Anion Gap 12 Estim Creat Clear Calc 91.2 Estimated GFR > 60 Random Glucose 125 H Calcium 8.8 D Total Bilirubin 5.1 H AST 56 H ALT 14 Alkaline Phosphatase 142 H Total Protein 5.2 L Albumin 3.0 L Microbiology Microbiology Results: Microbiology 04/22/23 Unknown Urine Culture - Final Urine clean catch - Clean Catch Midstream No growth. 04/22/23 09:40 Gram Stain - Final Ascites Fluid Routine Culture - Preliminary No growth to date. Anaerobic Culture - Preliminary No growth to date. 04/21/23 21:35 Blood Culture - Preliminary Blood - Venous No growth after 24 hours. 04/21/23 21:35 Blood Culture - Preliminary Blood - Venous No growth after 24 hours. Assessment and Plan (1) Acute on chronic anemia: Status: Acute (2) Leukocytosis: Status: Acute (3) Elevated bilirubin: Status: Acute (4) Acute alcoholic hepatitis: Status: Acute Plan 52 year old women admitted with Alcoholic hepatitis Acute Macrocytic anemia. unspecified HH down to 6.9/21.7 iron 69/TIBC 122/ferritin 642/b12 1950 tx one unit PRBC - h/h in between 9-10 check occult stool Acute alcoholic hepatitis Bilirubin 7.9-trending down, AST 64, alk-phos 141, abdominal ultrasound showed hepatomegaly with likely hepatic steatosis with liver parenchymal disease and portal hypertension. Seen by GI-s/p egd -no gross bleed -added prednisone, Thiamine 500mg BIDIV x5 days then decrease to 250mg IV daily x 5 day, then 100mg daily, Folic acid, thiamine, multivitamin, high protein diet . abd us ascitis -s/p paracentesis . leukocytosis. slowly trending down? unclear etiology ua mixed doris possible asp pna, treated with rocephin initially, new cxr clear? Aspiration pneumonia CXR with findings suggestive of left lower lobe subsegmental atelectasis versus aspiration/early infiltrates initially repeat CXR neg for acute abnornomality, no need for further tx? UTI urine cx mixed doris Hyponatremia. 132 secondary to alcohol abuse avoid over correction Hypokalemia repleted and resolved Lactic acidosis, resolved secondary to dehydration Lactic acid 2.2 with repeat 1.9 s/p IV fluids Ataxia Pt states she has had difficulty walking without assistance for past 3 years secondary to alcohol use disorder PT evaluation pending hypoalbuminemia : possible sec to dec po inatke added nutrionist eval Full Code DVT Prophylaxis: [facility] compression boots in light of anemia Continue hospitalization for treatment of acute alcoholic hepatitis requiring close monitoring and blood transfusion for acute anemia Time Spent With Patient Time: Total time managing care of this patient today ____ minutes. Quality Stroke Does the patient have a stroke diagnosis?: No VTE Prior VTE?: No VTE Risk Level:: Medical - moderate - high VTE Device Contraindication: Treatment Not Indicated VTE Drug Contraindication: N/A - Med Ordered
[2023-04-23 15:28] VITALS: BP 100/67; PULSE 90; RESP 19; TEMP 37.1; O2SAT 92
--- NOTE | 2023-04-23 15:34 | MHC.CLN ---
NUTRITION CONSULT FOR DECREASED PO INTAKE. VISITED WITH PATIENT WITH FRIEND PRESENT. PATIENT FOCUSED ON FOODS THAT SHE EATS AT HOME THAT ARE HER PARTNER'S FOOD PREFERENCES. APPEARS TO BE MAKING GOOD, HEALTHFUL FOOD CHOICES DURING ADMISSION. DIET=REGULAR WITH ENSURE TID. INTAKE PER DOC 75-100%. REVIEWED SOME FOOD ITEMS ON MENU THAT SHE MIGHT LIKE. ENCOURAGED HER TO DRINK SUPPLEMENT.
[2023-04-23] MEDS: Potassium Chloride Packet 20 MEQ PACKET PO (15:43)
--- NOTE | 2023-04-23 16:26 | MHC.CM.PN ---
PATIENT IS REQUESTING [facility] REFERRALS. REFERRALS PLACED. POSSIBLE DC Friday04/24/23
[2023-04-23 19:53] VITALS: BP 94/60; PULSE 89; RESP 20; TEMP 36; O2SAT 93
--- NOTE | 2023-04-24 | PM.EVENT ---
Event Note Date of Service: 04/24/23 Event Note: on discharge give po levaquin for a week treat lung and possible ascites and ask GI if they want patient M,W,Fri Levaquin SBP prophylaxis Time Spent With Patient Time: Total time managing care of this patient today ____ minutes.
[2023-04-24 03:20] VITALS: BP 104/65; PULSE 77; RESP 17; TEMP 36.4; O2SAT 95
[2023-04-24] MEDS: Thiamine HCL 500 MG in 0.9 % Sodium Chloride 100 ML 210 MG IV (03:23)
[2023-04-24] MEDS: 0.9 % Sodium Chloride Flush 3 ML SYRINGE IVFLUSH ×3 (03:24→19:30)
[2023-04-24 07:25] VITALS: BP 105/65; PULSE 78; RESP 18; TEMP 36.4; O2SAT 95
[2023-04-24] MEDS: Thiamine HCL 100 MG TABLET PO (09:23)
[2023-04-24] MEDS: predniSONE 20 MG TABLET 40 MG PO (09:23)
[2023-04-24] MEDS: Folic Acid 1 MG TABLET PO (09:23)
[2023-04-24] MEDS: levoFLOXacin 500 MG TABLET PO (09:23)
--- NOTE | 2023-04-24 12:42 | MHC.CM.PN ---
Addendum entered by Yue Jara 04/25/23 14:05: CM SPOKE TO CARLI AT [facility] WHO INDICATED SHE DID NOT RECEIVE THE LOC LOC RESENT TO HER AT [phone] Addendum entered by Yue Jara 04/25/23 10:45: CM LEFT ANOTHER MESSAGE FOR [facility] TODAY AT 1030 HOURS REQUESTING A RETURN CALL TO DISCUSS STATUS OF MDS REVIEW Addendum entered by Yue Jara 04/25/23 08:47: DC DELAYED, [facility] REFUSING TO TAKE PT BEFORE THEY HEAR BACK FROM [facility] CM DID CALL [facility] AND SPOKE TO BRIANA WHO INDICATED HE WOULD WATCH FOR PTS MDS, HOWEVER, IT WAS CLOSE TO THE END OF BUSINESS DAY CM LEFT A MESSAGE THIS MORNING WITH [facility] REQUESTING A STATUS UPDATE CM WILL CALL [facility] AGAIN IF APPROVAL LETTER IS NOT RECEIVED BY 1000 HOURS. Addendum entered by Yue Jara 04/24/23 15:52: CM MET WITH PT SEVERAL TIMES THROUGHOUT THE DAY AFTER SEVERAL REFERRALS WERE PLACED, PT HAS AGREED TO STR AT [facility] ONE OF [place] MDS AND HCP COMPLETED AND UPLOADED TO [facility] CM AWAITING CONFIRMATION OF TIME FROM [facility]. PT WOULD LIKE TO STAY FOR DINNER Original Note: RAY MET WITH PT TWICE TO DISCUSS DC PLANNING PT ADAMANT SHE WANTS TO GO TO [facility] DESPITE BEING INFORMED SHE MAY NOT QUALIFY SHE IS UNWILLING TO NAME OTHER SNF PREFERENCES AND CONTINUES TO DELAY THE REFERRAL BEING EXTENDED SHE IS AWARE AN OT EVAL IS PENDING SHE SAYS SHE WOULD LIKE TO SEE WHAT THEY SAY AND SPEAK TO HER FRIEND AT [facility] AGAIN BEFORE MAKING ANY OTHER DECISIONS SHE WAS INFORMED SHE IS MEDICALLY CLEARED AND A FACILITY SHOULD BE FOUND TODAY
--- NOTE | 2023-04-24 12:57 | PM.EVENT ---
Event Note Date of Service: 04/24/23 Event Note: Addiction consult placed Patient seen X2 by Recovery Support RN Resources provided. Please see junior architect note for additional details. Time Spent With Patient Time: Total time managing care of this patient today ____ minutes.
--- NOTE | 2023-04-24 13:52 | PM.GIPN ---
Subjective Subjective Date of Service: 04/24/23 Interval History: Pt seen and evaluated at bedside. Reports better energy levels and appetite. prednisone 40 started on 04/22 Critical Care Time (minutes): 0 Physical Exam Vital Signs: Vital Signs: Last Vital Signs Temp 97.5 F 04/24/23 07:25 Pulse 78 04/24/23 07:25 Resp 18 04/24/23 07:25 BP 105/65 04/24/23 07:25 Pulse Ox 95 04/24/23 07:25 O2 Del Method Room Air 04/24/23 07:25 O2 Flow Rate 2 04/23/23 07:15 BMI result Body Mass Index 23.0 Gen appear: NAD, icteric Abd: soft, nontender, distended Neuro: A/Ox 3, no asterixis Objective Data Labs 04/23/23 08:35 04/23/23 08:35 Microbiology Microbiology Results: Microbiology 04/22/23 09:40 Ascites Fluid Gram Stain - Final 04/22/23 09:40 Ascites Fluid Routine Culture - Final No growth after 2 days 04/22/23 09:40 Ascites Fluid Anaerobic Culture - Preliminary No growth to date. 04/21/23 21:35 Blood - Venous Blood Culture - Preliminary No growth after 48 hours. 04/21/23 21:35 Blood - Venous Blood Culture - Preliminary No growth after 48 hours. 04/18/23 18:19 Blood - Venous Blood Culture - Final No growth after 5 days. 04/18/23 18:19 Blood - Venous Blood Culture - Final No growth after 5 days. 04/22/23 Unknown Urine clean catch - Clean Catch Midstream Urine Culture - Final No growth. 04/18/23 Unknown Urine clean catch - Urine simmons top Urine Culture - Final Procedures Date of Service Date of Service: 04/25/23 Progress Note: A&P Assessment and plan (1) Acute on chronic anemia: Status: Acute (2) Alcohol use disorder: Status: Acute (3) Acute alcoholic hepatitis: Status: Acute Plan - LFTs improving. - Cont prednisone 40mg PO daily - Protein shakes - PT - Will need a day 7 Lille score (i.e 04/28) to evaluate for utility of continuing corticosteroids for alc hep - Pt will also be set up in office for follow up Time Spent With Patient Time: Total time managing care of this patient today ____ minutes. Quality Stroke Does the patient have a stroke diagnosis?: No VTE Prior VTE?: No VTE Risk Level:: Medical - moderate - high VTE Device Contraindication: Treatment Not Indicated VTE Drug Contraindication: N/A - Med Ordered
[2023-04-24 15:25] VITALS: BP 113/77; PULSE 99; RESP 20; TEMP 36; O2SAT 99
--- NOTE | 2023-04-24 15:37 | HO.PM.IMPN ---
Subjective Subjective Date of Service: 04/24/23 Interval History: Acute Macrocytic anemia,Acute alcoholic hepatitis Physical Exam Vital Signs: Vital Signs: Last Vital Signs Temp 96.8 F 04/24/23 15:25 Pulse 99 04/24/23 15:25 Resp 20 04/24/23 15:25 BP 113/77 04/24/23 15:25 Pulse Ox 99 04/24/23 15:25 O2 Del Method Room Air 04/24/23 15:25 O2 Flow Rate 2 04/23/23 07:15 BMI result Body Mass Index 23.0 Objective Data Active Medications Docusate Sodium (Docusate Sodium 100 Mg Capsule) 100 mg PO DAILY PRN PRN Reason: Constipation Folic Acid (Folic Acid 1 Mg Tablet) 1 mg PO DAILY [facility] Last Admin: 04/24/23 09:23 Dose: 1 mg Documented By: TRAVON Levofloxacin (Levofloxacin 500 Mg Tablet) 500 mg PO Q24H [facility] Last Admin: 04/24/23 09:23 Dose: 500 mg Documented By: TRAVON Omeprazole (Omeprazole 20 Mg Capsule.) 20 mg PO BID@0630,1630 [facility] Last Admin: 04/24/23 05:26 Dose: Not Given Documented By: JULIANE Non-Admin Reason: Patient Refused Prednisone (Prednisone 20 Mg Tablet) 40 mg PO DAILY [facility] Last Admin: 04/24/23 09:23 Dose: 40 mg Documented By: TRAVON Sodium Chloride (0.9 % Sodium Chloride Flush 3 Ml Syringe) 3 ml IVFLUSH QSHIFT [facility] Last Admin: 04/24/23 09:24 Dose: 3 ml Documented By: TRAVON Thiamine HCl (Thiamine Hcl 100 Mg Tablet) 100 mg PO DAILY [facility] Last Admin: 04/24/23 09:23 Dose: 100 mg Documented By: TRAVON Labs 04/23/23 08:35 04/23/23 08:35 Microbiology Microbiology Results: Microbiology 04/22/23 09:40 Gram Stain - Final Ascites Fluid Routine Culture - Final No growth after 2 days Anaerobic Culture - Preliminary No growth to date. 04/21/23 21:35 Blood Culture - Preliminary Blood - Venous No growth after 48 hours. 04/21/23 21:35 Blood Culture - Preliminary Blood - Venous No growth after 48 hours. 04/18/23 18:19 Blood Culture - Final Blood - Venous No growth after 5 days. 04/18/23 18:19 Blood Culture - Final Blood - Venous No growth after 5 days. 04/22/23 Unknown Urine Culture - Final Urine clean catch - Clean Catch Midstream No growth. Assessment and Plan Time Spent With Patient Time: Total time managing care of this patient today ____ minutes. Quality Stroke Does the patient have a stroke diagnosis?: No VTE Prior VTE?: No VTE Risk Level:: Medical - moderate - high VTE Device Contraindication: Treatment Not Indicated VTE Drug Contraindication: N/A - Med Ordered
--- NOTE | 2023-04-24 15:49 | P.DS_ITS ---
DS: Providers Provider Date of Service: 04/24/23 Date of admission: 04/18/23 22:31 Date of discharge: 04/24/23 Primary care physician: Unknown Physician Consults: 04/18/23 22:41 Consult to Gastroenterology Routine Consulting Provider: Mikayla Vega Reason for consultation: New onset acute decompensated alcoholic hepatitis 04/21/23 12:19 Addiction Medicine Routine Consulting Provider: Addiction Covering Reason for consultation: ETOH 04/22/23 08:42 Consult to Infectious Diseases Routine Consulting Provider: [facility] Reason for consultation: persistent leucocytosis /fever-unclear etiology Has provider been notified: No Attending physician on discharge: Rashaun Klein Discharging clinician: Rashaun Kelin DS: Diagnosis Discharge Diagnosis (1) Acute on chronic anemia: Status: Acute (2) Alcohol use disorder: Status: Acute (3) Acute alcoholic hepatitis: Status: Acute DS: Summary Hospital Course Hospital Course: 52-year-old female with a PMH significant for?alcohol use disorder not on home meds who presents to the ED with?jaundice and increasing abdominal swelling and pain for the past 2 weeks.? Patient has a long history of heavy alcohol use of up to 5+ alcoholic drinks per day.? Patient states she stopped drinking 2 weeks ago when she began experiencing increasing abdominal bloating and pain, and her friends noticed her skin was turning yellow.? Patient states the pain felt like a knife being thrust into her side.? Says she initially thought that it was gas and that it would just go away.? Patient also notes increased swelling in her ankles and legs.? Patient denies ever experiencing withdrawal symptoms or needing to drink early in the day to prevent shaking.? She reports quitting smoking at the same time.? She also states she has experienced chronic cramps in her calves bilaterally and difficulty walking without assistance for the past 3 years.? Patient has been having difficulties with her PCP who she does not like and has not yet been to physical therapy for treatment.? Patient denies dysuria or polyuria.? Denies cough, shortness of breath, fever, chills, nausea. In the ED patient was afebrile, but tachycardic up to 101. Labs were significant for leukocytosis of 26.7, H&H of 8.7 of 26.9, MCV 112.1, hyponatremia of 128, hypokalemia of 3.0, chloride of 88, lactic acid of 2.2 with repeat 1.9, bilirubin 7.9, AST 96, alk-phos 212, albumin 2.5. Kidney function baseline.? UA questionable for UTI:? Positive for nitrites, leukocyte esterase, rbc's, and 1+ bacteria with 11-20 epitehlial cells.? CXR showed findings suggestive of left lower lobe subsegmental atelectasis versus aspiration or early infiltrates with trace left-sided pleural fluid.? Abdominal ultrasound showed hepatomegaly with increased echogenicity of liver parenchyma possibly hepatic steatosis or liver parenchymal disease, also showed reversed flow in portal vein suggesting portal hypertension. Pt was treated with IVF, thiamine, magnesium sulfate, potassium choloride, and ceftriaxone. Pt will be admitted to the hospital for treatment further evaluation of acute alcoholic hepatitis. Hospital course: Patient was admitted for generalized weakness in setting of excessive alcohol use-found to have anemia, leukocytosis and alcoholic hepatitis, possible mild aspiration pneumonia: Patient was subsequently started on antibiotics for pneumonia, blood cultures sent. She seems significantly better-seen by infectious disease leukocytosis probably related combination of steroid and alcoholic hepatitis. Blood culture came out to be negative, recommended to switch to p.o. antibiotics for 1 week upon discharge. Patient will go home with levofloxacin 500 mg p.o. daily for 1 week. P Anemia: Patient initially had hemoglobin of 6.9 got 1 PRBC subsequently patient's hemoglobin is in 9 range. Seen by GI for alcoholic hepatitis and anemia-patient had EGD done, Findings below: * Normal esophagus * Mild portal hypertensive gastropathy * Normal duodenum (biopsy) Also follow-up with GI for biopsy results and further management of alcoholic hepatitis-patient will need labs CBC, INR, CMP on 04/28/23 (for need a day 7 Lille score (i.e 04/28) to evaluate for utility of continuing corticosteroids for alc hepatitis)-please fax these labs results to Dr. Gary Degroot( GI as office) to decide further use of prednisone. lft's slowly improving Patient had ascites in the setting of alcoholic hepatitis-received paracentesis during this admission, 3 liter fluid removed ,no sbp. Currently GI recommended 28 days of total prednisone for alcoholic hepatitis- prednisone may need to be re-evaluated after above labs on 04/28/23. In addition in addition patient was strongly advised for up alcohol abstinence. Says she is saying that she will not drink further. plan: Continue prednisone 40 mg for 26 more days, Also follow-up with GI for biopsy results and further management of alcoholic hepatitis-patient will need labs CBC, INR, CMP on 04/28/23 (for need a day 7 Lille score (i.e 04/28) to evaluate for utility of continuing corticosteroids for alc hepatitis)-please fax these labs results to Dr. Gary Degroot( GI as office) to decide further use of prednisone. Complete Levaquin course for pneumonia as above. Follow-up outpatient with PCP and GI. Above management discussed with the patient in detail length she understand and in agreement with the above plan, time spent 50 minutes and 50% time spent on counseling. Time Spent with Patient Time attestation: Total time managing care of this patient today ____ minutes. Discharge coordination time: Greater than 30 minutes Quality: Safe Use of Opioids Does Pt have an Active Cancer Diagnosis on the Problem List?: No Quality: Stroke Does the patient have a stroke diagnosis?: No Physical Exam Vital Signs: Vital Signs: Last Vital Signs Temp 96.8 F 04/24/23 15:25 Pulse 99 04/24/23 15:25 Resp 20 04/24/23 15:25 BP 113/77 04/24/23 15:25 Pulse Ox 99 04/24/23 15:25 O2 Del Method Room Air 04/24/23 15:25 O2 Flow Rate 2 04/23/23 07:15 BMI result Body Mass Index 23.0 Appearance: Alert.? Oriented X3.? ch sick,generalised weak.? Eyes: Pupils equal, round and reactive to light.? Sclera icteric.? cvs: rrr, [id number] . res: clear to auscultation ,no rhonchii or wheezing abd: no rebound or guarding ,nt, bs present. ext pulses present , no cyanosis. neuro: axo3 , nonfocal. DS: Data Data Completed and Pending Pending studies at discharge: Pending at discharge 04/21/23 09:40 Cytology [PTH] Routine 04/22/23 15:22 Surgical [PTH] Routine Labs on day of discharge: Preliminary micro results at discharge 04/22/23 09:40 Anaerobic Culture - Preliminary Ascites Fluid No growth to date. 04/21/23 21:35 Blood Culture - Preliminary Blood - Venous No growth after 48 hours. 04/21/23 21:35 Blood Culture - Preliminary Blood - Venous No growth after 48 hours. Imaging Chest x-ray: Radiologist's impression: ITS Impressions Abdomen Ultrasound 04/18/23 18:05 IMPRESSION: *Hepatomegaly. *Increased echogenicity of the liver parenchyma, this can be seen in the setting of hepatic steatosis or liver parenchymal disease. *Reversed flow in the portal vein hepatofugal flow, suggesting portal hypertension. *Gallbladder sludge. Chest X-Ray 04/18/23 19:50 IMPRESSION: Findings suggesting left lower lobe subsegmental atelectasis versus aspiration or early infiltrates. Trace amount of left-sided pleural fluid. A follow-up imaging after treatment is recommended to ensure appropriate resolution. Chest X-Ray 04/21/23 08:33 IMPRESSION: No acute cardiopulmonary process. Abdomen Ultrasound 04/21/23 11:45 FINDINGS/IMPRESSION: Moderate volume of ascites present. Fluid is anechoic. Chest X-Ray 04/21/23 21:45 IMPRESSION: Low lung volumes. Atelectasis or small infiltrates at the lung bases. Question small left pleural effusion. Paracentesis Ultrasound 04/22/23 09:40 IMPRESSION: Paracentesis under ultrasound guidance with 3 L of fluid drained Discharge Plan Discharge Anticipated Discharge Date/Time: 04/24/23 10:20 Patient Disposition: er [facility] Discharge Diagnosis: alcoholic hepatitis ,aspirational pneumonia Referrals: [facility] [Outside] - 1 Week Physician,Unknown J [Primary Care Provider] - 1 Week Discharge Medications: New omeprazole 20 mg Capsule,Delayed Release(Dr/Ec) 20 mg PO BID@0630,1630 Qty: 30 0RF prednisone 20 mg Tablet 40 mg PO DAILY Qty: 52 0RF levofloxacin 500 mg Tablet 500 mg PO Q24H Qty: 6 0RF docusate sodium 100 mg Capsule 100 mg PO DAILY PRN (Reason: Constipation) Qty: 1 0RF folic acid 1 mg Tablet 1 mg PO DAILY Qty: 30 0RF thiamine mononitrate (vit B1) 100 mg Tablet 100 mg PO DAILY Qty: 30 0RF No Action No Known Home Meds Discharge Orders: Discharge Order (Routine); Ordered 04/24/23 Ordered By: Rashaun Klein Diet: Advance to usual diet Activity on Discharge: As tolerated Stand Alone Forms: Patient Portal Discharge page Care Plan Goals: Patient was admitted for generalized weakness in setting of excessive alcohol use-found to have anemia, leukocytosis and alcoholic hepatitis, possible mild aspiration pneumonia: Patient was subsequently started on antibiotics for pneumonia, blood cultures sent. She seems significantly better-seen by infectious disease leukocytosis probably related combination of steroid and alcoholic hepatitis. Blood culture came out to be negative, recommended to switch to p.o. antibiotics for 1 week upon discharge. Patient will go home with levofloxacin 500 mg p.o. daily for 1 week. Anemia: Patient initially had hemoglobin of 6.9 got 1 PRBC subsequently patient's hemoglobin is in 9 range. Seen by GI for alcoholic hepatitis and anemia-patient had EGD done, Findings below: * Normal esophagus * Mild portal hypertensive gastropathy * Normal duodenum (biopsy) Also follow-up with GI for biopsy results and further management of alcoholic hepatitis-patient will need labs CBC, INR, CMP on 04/28/23 (for need a day 7 Lille score (i.e 04/28) to evaluate for utility of continuing corticosteroids for alc hepatitis)-please fax these labs results to Dr. Gary Degroot( GI as office) to decide further use of prednisone. Currently GI recommended 28 days of total prednisone for alcoholic hepatitis- prednisone may need to be re-evaluated after above labs on 04/28/23. In addition in addition patient was strongly advised for up alcohol abstinence. Says she is saying that she will not drink further. Health Concerns: As above. Plan of Treatment: As above. Assessment: As above.
--- NOTE | 2023-04-24 15:56 | PC.NURSE ---
Recovery team met with pt, pt stating she is uninterested in medication to assist with ETOH abstinence, or recovery resources. Pt stated I know what I am going to do. when asked about her ETOH use. Pt also stated she quit approximately a month ago on her own, and that she drinks out of boredom. Pt encouraged to reach out to addiction/recovery team with any questions or concerns, pt verbalized understanding.
--- NOTE | 2023-04-24 16:50 | HO.PM.IMPN ---
Subjective Subjective Date of Service: 04/25/23 Interval History: Acute Macrocytic anemia,Acute alcoholic hepatiti Review of Systems no new c/o Physical Exam Vital Signs: Vital Signs: Last Vital Signs Temp 96.8 F 04/24/23 15:25 Pulse 99 04/24/23 15:25 Resp 20 04/24/23 15:25 BP 113/77 04/24/23 15:25 Pulse Ox 99 04/24/23 15:25 O2 Del Method Room Air 04/24/23 15:25 O2 Flow Rate 2 04/23/23 07:15 BMI result Body Mass Index 23.0 Appearance: Alert.? Oriented X3.? ch sick,generalised weak.? Eyes: Pupils equal, round and reactive to light.? Sclera icteric.? cvs: [id number], [id number] . res: clear to auscultation ,no rhonchii or wheezing abd: no rebound or guarding ,nt, bs present. ext pulses present , no cyanosis. neuro: axo3 , nonfocal. Objective Data Active Medications Docusate Sodium (Docusate Sodium 100 Mg Capsule) 100 mg PO DAILY PRN PRN Reason: Constipation Folic Acid (Folic Acid 1 Mg Tablet) 1 mg PO DAILY [facility] Last Admin: 04/24/23 09:23 Dose: 1 mg Documented By: TRAVON Levofloxacin (Levofloxacin 500 Mg Tablet) 500 mg PO Q24H [facility] Last Admin: 04/24/23 09:23 Dose: 500 mg Documented By: TRAVON Omeprazole (Omeprazole 20 Mg Capsule.) 20 mg PO BID@0630,1630 [facility] Last Admin: 04/24/23 15:57 Dose: Not Given Documented By: TRAVON Non-Admin Reason: Patient Refused Prednisone (Prednisone 20 Mg Tablet) 40 mg PO DAILY [facility] Last Admin: 04/24/23 09:23 Dose: 40 mg Documented By: TRAVON Sodium Chloride (0.9 % Sodium Chloride Flush 3 Ml Syringe) 3 ml IVFLUSH QSHIFT [facility] Last Admin: 04/24/23 09:24 Dose: 3 ml Documented By: TRAVON Thiamine HCl (Thiamine Hcl 100 Mg Tablet) 100 mg PO DAILY [facility] Last Admin: 04/24/23 09:23 Dose: 100 mg Documented By: TRAVON Labs 04/23/23 08:35 04/23/23 08:35 Microbiology Microbiology Results: Microbiology 04/22/23 09:40 Gram Stain - Final Ascites Fluid Routine Culture - Final No growth after 2 days Anaerobic Culture - Preliminary No growth to date. 04/21/23 21:35 Blood Culture - Preliminary Blood - Venous No growth after 48 hours. 04/21/23 21:35 Blood Culture - Preliminary Blood - Venous No growth after 48 hours. 04/18/23 18:19 Blood Culture - Final Blood - Venous No growth after 5 days. 04/18/23 18:19 Blood Culture - Final Blood - Venous No growth after 5 days. 04/22/23 Unknown Urine Culture - Final Urine clean catch - Clean Catch Midstream No growth. Assessment and Plan (1) Acute on chronic anemia: Status: Acute (2) Leukocytosis: Status: Acute (3) Elevated bilirubin: Status: Acute (4) Acute alcoholic hepatitis: Status: Acute Plan 52 year old women admitted with Alcoholic hepatitis Acute Macrocytic anemia. unspecified HH down to 6.9/21.7 iron 69/TIBC 122/ferritin 642/b12 1950 tx one unit PRBC - h/h in between - check occult stool Acute alcoholic hepatitis Bilirubin 7.9-trending down, AST 64, alk-phos 141, abdominal ultrasound showed hepatomegaly with likely hepatic steatosis with liver parenchymal disease and portal hypertension. Seen by GI-s/p egd -no gross bleed -added prednisone, Thiamine 500mg BIDIV x5 days then decrease to 250mg IV daily x 5 day, then 100mg daily, Folic acid, thiamine, multivitamin, high protein diet . abd us ascitis -s/p paracentesis . leukocytosis. slowly trending down? unclear etiology ua mixed doris possible asp pna, treated with rocephin initially, new cxr clear? Aspiration pneumonia CXR with findings suggestive of left lower lobe subsegmental atelectasis versus aspiration/early infiltrates initially repeat CXR neg for acute abnornomality, no need for further tx? UTI urine cx mixed doris Hyponatremia. 132 secondary to alcohol abuse avoid over correction Hypokalemia repleted and resolved Lactic acidosis, resolved secondary to dehydration Lactic acid 2.2 with repeat 1.9 s/p IV fluids Ataxia Pt states she has had difficulty walking without assistance for past 3 years secondary to alcohol use disorder PT evaluation pending hypoalbuminemia : possible sec to dec po inatke added nutrionist eval Full Code DVT Prophylaxis: mech compression boots in light of anemia inpatient need:awaiting placment Time Spent With Patient Time: Total time managing care of this patient today ____ minutes. Quality Stroke Does the patient have a stroke diagnosis?: No VTE Prior VTE?: No VTE Risk Level:: Medical - moderate - high VTE Device Contraindication: Treatment Not Indicated VTE Drug Contraindication: N/A - Med Ordered
[2023-04-24 19:51] VITALS: BP 124/84; PULSE 72; RESP 20; TEMP 36; O2SAT 99
[2023-04-25] MEDS: LORazepam 0.5 MG TABLET PO (01:41)
[2023-04-25 03:22] VITALS: BP 119/80; PULSE 70; RESP 18; TEMP 36.4; O2SAT 97
[2023-04-25 07:33] VITALS: BP 114/63; PULSE 73; RESP 18; TEMP 36.1; O2SAT 94
[2023-04-25] MEDS: Thiamine HCL 100 MG TABLET PO (08:57)
[2023-04-25] MEDS: predniSONE 20 MG TABLET 40 MG PO (08:57)
[2023-04-25] MEDS: Folic Acid 1 MG TABLET PO (08:58)
[2023-04-25] MEDS: levoFLOXacin 500 MG TABLET PO (08:58)
[2023-04-25] MEDS: 0.9 % Sodium Chloride Flush 3 ML SYRINGE IVFLUSH (09:01)
--- NOTE | 2023-04-25 10:44 | P.PNIM_ITS ---
Subjective Subjective Date of Service: 04/25/23 Interval History: alc hep. Physical Exam Vital Signs: Vital Signs: Last Vital Signs Temp 96.9 F 04/25/23 07:33 Pulse 73 04/25/23 07:33 Resp 18 04/25/23 07:33 BP 114/63 04/25/23 07:33 Pulse Ox 94 04/25/23 07:33 O2 Del Method Room Air 04/25/23 07:33 O2 Flow Rate 2 04/23/23 07:15 BMI result Body Mass Index 23.0 Appearance: Alert.? Oriented X3.? ch sick,generalised weak.? Eyes: Pupils equal, round and reactive to light.? Sclera icteric.? cvs: rrr, [id number] . res: clear to auscultation ,no rhonchii or wheezing abd: no rebound or guarding ,nt, bs present. ext pulses present , no cyanosis. neuro: axo3 , nonfocal. Objective Data Active Medications Docusate Sodium (Docusate Sodium 100 Mg Capsule) 100 mg PO DAILY PRN PRN Reason: Constipation Folic Acid (Folic Acid 1 Mg Tablet) 1 mg PO DAILY [facility] Last Admin: 04/25/23 08:58 Dose: 1 mg Documented By: TRAVON Levofloxacin (Levofloxacin 500 Mg Tablet) 500 mg PO Q24H [facility] Last Admin: 04/25/23 08:58 Dose: 500 mg Documented By: TRAVON Lorazepam (Lorazepam 0.5 Mg Tablet) 0.5 mg PO Q6H PRN PRN Reason: anxiety/withdrawal Last Admin: 04/25/23 01:41 Dose: 0.5 mg Documented By: DA Omeprazole (Omeprazole 20 Mg Capsule.) 20 mg PO BID@5830,5610 [facility] Last Admin: 04/25/23 06:00 Dose: Not Given Documented By: DA Non-Admin Reason: Patient Refused Prednisone (Prednisone 20 Mg Tablet) 40 mg PO DAILY [facility] Last Admin: 04/25/23 08:57 Dose: 40 mg Documented By: TRAVON Sodium Chloride (0.9 % Sodium Chloride Flush 3 Ml Syringe) 3 ml IVFLUSH QSHIFT [facility] Last Admin: 04/25/23 09:01 Dose: 3 ml Documented By: TRAVON Thiamine HCl (Thiamine Hcl 100 Mg Tablet) 100 mg PO DAILY [facility] Last Admin: 04/25/23 08:57 Dose: 100 mg Documented By: TRAVON Labs 04/23/23 08:35 04/23/23 08:35 Microbiology Microbiology Results: Microbiology 04/22/23 09:40 Gram Stain - Final Ascites Fluid Routine Culture - Final No growth after 2 days Anaerobic Culture - Preliminary No growth to date. Assessment and Plan Time Spent With Patient Time: Total time managing care of this patient today ____ minutes. Quality Stroke Does the patient have a stroke diagnosis?: No VTE Prior VTE?: No VTE Risk Level:: Medical - moderate - high VTE Device Contraindication: Treatment Not Indicated VTE Drug Contraindication: N/A - Med Ordered
[2023-04-25 15:44] VITALS: BP 97/63; PULSE 97; RESP 20; TEMP 36; O2SAT 97
== END 2023-04-25 18:47 | disposition skilled nursing facility (03) | DRG 280 ==
LOC: HO.ED 19:51 → HO.EDOVER 22:41 → HO.S3 04-19 13:31
PROVIDERS: Internal Medicine; Nurse Practitioner Acute Care; Registered Nurse Emergency; Admitting Provider Student in an Organized Health Care Education/Training Program; Emergency Provider Emergency Medicine; PCP Internal Medicine; Visit Provider Internal Medicine
PROC: 0DJ08ZZ Inspection of Upper Intestinal Tract, Via Natural or Artificial Opening Endoscopic (ICD-10-PCS; CPT 43235; principal; 2023-04-22 13:30)
DX: K70.11 Alcoholic hepatitis with ascites (principal); J69.0 Pneumonitis due to inhalation of food and vomit; E87.21 Acute metabolic acidosis; K76.6 Portal hypertension; E87.1 Hypo-osmolality and hyponatremia; E88.09 Other disorders of plasma-protein metabolism, not elsewhere classified; N39.0 Urinary tract infection, site not specified; K76.0 Fatty (change of) liver, not elsewhere classified; J98.11 Atelectasis; D53.9 Nutritional anemia, unspecified; K44.9 Diaphragmatic hernia without obstruction or gangrene; K31.89 Other diseases of stomach and duodenum; F10.21 Alcohol dependence, in remission; I10 Essential (primary) hypertension; E87.6 Hypokalemia; Z87.891 Personal history of nicotine dependence; Z79.52 Long term (current) use of systemic steroids; Z79.899 Other long term (current) drug therapy
CPT/HCPCS: 36415; 49083; 71045; 76705; 80048; 80053; 80061; 80076; 81001; 81003; 82042; 82150; 82607; 82728; 82746; 82945; 83540; 83605; 83615; 83690; 83735; 83986; 84155; 84157; 84702; 85007; 85014; 85018; 85025; 85027; 85610; 85730; 86704; 86706; 86709; 86803; 86850; 86900; 86901; 86923; 87040; 87070; 87073; 87086; 87205; 87340; 87389; 88112; 88305; 89051; 97116; 97162; 97166; 97530; 97535; 99285; J0696; J1650; J2060; J3411; J3475; P9040; P9047

== ENCOUNTER 2023-04-18 22:31 | Outpatient (BNV) | payer MEDICAID, SELFPAY | END 2023-04-22 09:00 | PROVIDERS: Admitting Provider Student in an Organized Health Care Education/Training Program; Emergency Provider Emergency Medicine; Visit Provider Radiology Vascular & Interventional Radiology | DX: R18.8 Other ascites (principal) | CPT/HCPCS: 49083 ==

== ENCOUNTER → 2023-04-18 22:31 | Outpatient (BNV) | payer MEDICAID, SELFPAY | PROVIDERS: Admitting Provider Student in an Organized Health Care Education/Training Program; Emergency Provider Emergency Medicine; Visit Provider Student in an Organized Health Care Education/Training Program | DX: D64.9 Anemia, unspecified (principal); F10.90 Alcohol use, unspecified, uncomplicated; K70.10 Alcoholic hepatitis without ascites | CPT/HCPCS: 99223; 99231; 99232; 99239; 99499 ==

== ENCOUNTER → 2023-04-18 22:31 | Outpatient (BNV) | payer MEDICAID, SELFPAY | PROVIDERS: Admitting Provider Student in an Organized Health Care Education/Training Program; Emergency Provider Emergency Medicine; Visit Provider Internal Medicine | DX: D64.9 Anemia, unspecified (principal); F10.90 Alcohol use, unspecified, uncomplicated; K70.10 Alcoholic hepatitis without ascites | CPT/HCPCS: 43239; 99232 ==

== ENCOUNTER → 2023-04-18 22:31 | Outpatient (BNV) | payer MEDICAID, SELFPAY | PROVIDERS: Admitting Provider Student in an Organized Health Care Education/Training Program; Emergency Provider Emergency Medicine; Visit Provider Internal Medicine | DX: D72.829 Elevated white blood cell count, unspecified (principal) | CPT/HCPCS: 99222; 99499 ==

== ENCOUNTER 2023-05-08 12:55 | Outpatient (REF) | payer MEDICAID, SELFPAY ==
[2023-05-08 13:29] LABS: Ammonia 27 umol/L (13-55)
[2023-05-08 13:56] LABS: Basophils Absolute Auto 0.1 X10*3/uL (0.0-0.2); Basophils Percent Auto 0.2 % (0-2); Eosinophils Percent Auto 0.1 % (0-4); Hematocrit 37.2 % (37.0-47.0); Hemoglobin 12.1 g/dl (12.0-16.0); Imm Gran Abs Auto 0.32 X10*3/uL (0.00-0.03); Lymphocytes Absolute Auto 0.9 X10*3/uL (1.2-4.9); Lymphocytes Percent Auto 2.9 % (20-40); MANUAL DIFF FLAG SCAN; Mean Corpuscular HGB Conc 32.5 g/dl (31.0-35.0); Mean Corpuscular Hemoglobin 35.9 pg (27.0-33.0); Mean Platelet Volume 11.3 fL (9.4-12.3); Monocytes Absolute Auto 0.6 X10*3/uL (0.1-1.2); Monocytes Percent Auto 1.9 % (2-11); Neutrophils Percent Auto 93.9 % (45-73); Platelet Count 488 X10*3/uL (160-400); Red Blood Count 3.37 X10*6/uL (4.20-5.50); Red Cell Distribution Width 15.8 % (11.0-16.0); SCAN SMEAR FLAG 1
[2023-05-08 14:22] LABS: White Blood Count 31.9 X10*3/uL (4.8-10.8)
[2023-05-08 14:23] LABS: Mean Corpuscular Volume 110.4 fL (80.0-98.0)
[2023-05-08 14:53] LABS: SLIDE REVIEW VERIFIED
[2023-05-08 15:18] LABS: Alanine Aminotransferase 45 U/L (0-31); Albumin Level 3.6 g/dL (3.5-5.0); Alkaline Phosphatase 183 U/L (39-117); Anion Gap 13 (12-20); Aspartate Amino Transferase 59 U/L (5-31); Bilirubin Total 2.2 mg/dL (0.0-1.0); Blood Urea Nitrogen 12 mg/dL (9-16); Calcium 9.3 mg/dL (8.4-10.2); Carbon Dioxide 27 mmol/L (22-29); Chloride 103 mmol/L (96-108); Estimated Glomerular Filt Rate > 60; Glucose Random 112 mg/dL (60-115); Potassium 3.7 mmol/L (3.3-5.1); Sodium 139 mmol/L (135-145); Total Protein 6.4 g/dL (6.5-8.0)
== END 2023-05-08 12:56 | disposition home or self-care (01) ==
LOC: HO.LAB 12:55
PROVIDERS: Visit Provider Internal Medicine
DX: D72.829 Elevated white blood cell count, unspecified (principal)
CPT/HCPCS: 36415; 80053; 82140; 85025

== ENCOUNTER 2023-05-21 11:48 | Outpatient (AMB) | payer MEDICAID, SELFPAY ==
[2023-05-21 11:52] VITALS: BP 164/96; PULSE 75; BMI 24.4
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
== END 2023-05-21 12:26 | disposition home or self-care (01) ==
PROVIDERS: PCP Internal Medicine; Visit Provider Internal Medicine
DX: F10.90 Alcohol use, unspecified, uncomplicated (principal); K70.10 Alcoholic hepatitis without ascites; Z79.899 Other long term (current) drug therapy
CPT/HCPCS: 99214

== ENCOUNTER → 2023-05-21 11:48 | Outpatient (BNVA) | payer MEDICAID, SELFPAY | PROVIDERS: PCP Internal Medicine; Visit Provider Internal Medicine | DX: K70.10 Alcoholic hepatitis without ascites (principal); F10.90 Alcohol use, unspecified, uncomplicated; Z79.899 Other long term (current) drug therapy | CPT/HCPCS: 99212 ==

== ENCOUNTER 2023-05-30 10:01 | Outpatient (REF) | payer OTHER, SELFPAY ==
[2023-05-30 11:56] LABS: Anion Gap 13 (12-20); Blood Urea Nitrogen 11 mg/dL (9-16); Carbon Dioxide 29 mmol/L (22-29); Chloride 100 mmol/L (96-108); Estimated Glomerular Filt Rate > 60; Glucose Random 81 mg/dL (60-115); Sodium 138 mmol/L (135-145)
== END 2023-05-30 10:02 | disposition home or self-care (01) ==
LOC: HO.LAB 10:01
PROVIDERS: PCP Internal Medicine; Visit Provider Internal Medicine
DX: Z79.899 Other long term (current) drug therapy (principal)
CPT/HCPCS: 36415; 80048

== ENCOUNTER → 2023-06-03 09:17 | Outpatient (BNV) | payer MEDICAID, SELFPAY | PROVIDERS: PCP Internal Medicine; Visit Provider Internal Medicine | DX: D72.829 Elevated white blood cell count, unspecified (principal) | CPT/HCPCS: 99204; 99213 ==

== ENCOUNTER 2023-06-06 11:32 | Outpatient (REF) | payer OTHER, SELFPAY ==
[2023-06-06 13:42] LABS: INTERNATIONAL NORM RATIO 1.2 (0.9-1.1)
[2023-06-06 14:14] LABS: Alanine Aminotransferase 37 U/L (0-31); Albumin Level 4.2 g/dL (3.5-5.0); Alkaline Phosphatase 74 U/L (39-117); Anion Gap 14 (12-20); Aspartate Amino Transferase 40 U/L (5-31); Bilirubin Total 0.8 mg/dL (0.0-1.0); Blood Urea Nitrogen 16 mg/dL (9-16); Calcium 9.8 mg/dL (8.4-10.2); Carbon Dioxide 23 mmol/L (22-29); Chloride 102 mmol/L (96-108); Estimated Glomerular Filt Rate > 60; Glucose Random 96 mg/dL (60-115); Sodium 135 mmol/L (135-145); Total Protein 7.3 g/dL (6.5-8.0)
== END 2023-06-06 11:33 | disposition home or self-care (01) ==
LOC: HO.HHCL 11:32
PROVIDERS: Visit Provider Internal Medicine
DX: K70.31 Alcoholic cirrhosis of liver with ascites (principal)
CPT/HCPCS: 36415; 80053; 85610; 85730

== ENCOUNTER 2023-06-18 12:59 | Outpatient (AMB) | payer MEDICAID, SELFPAY ==
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
[2023-06-18 13:06] VITALS: BP 153/79; PULSE 103; BMI 21.1
== END 2023-06-18 14:03 | disposition home or self-care (01) ==
PROVIDERS: PCP Internal Medicine; Visit Provider Internal Medicine
DX: K70.10 Alcoholic hepatitis without ascites (principal); F10.90 Alcohol use, unspecified, uncomplicated
CPT/HCPCS: 99214

== ENCOUNTER → 2023-06-18 12:59 | Outpatient (BNVA) | payer MEDICAID, SELFPAY | PROVIDERS: PCP Internal Medicine; Visit Provider Internal Medicine | DX: K70.10 Alcoholic hepatitis without ascites (principal); F10.90 Alcohol use, unspecified, uncomplicated; Z79.899 Other long term (current) drug therapy | CPT/HCPCS: 99212 ==

== ENCOUNTER 2023-09-10 10:33 | Outpatient (REF) | payer MEDICAID, SELFPAY ==
[2023-09-10 14:22] LABS: MANUAL DIFF FLAG NO
[2023-09-10 14:24] LABS: Basophils Absolute Auto 0.1 X10*3/uL (0.0-0.2); Basophils Percent Auto 1.1 % (0-2); Eosinophils Absolute Auto 0.2 X10*3/uL (0.0-0.4); Eosinophils Percent Auto 2.7 % (0-4); Hematocrit 38.5 % (37.0-47.0); Hemoglobin 12.4 g/dl (12.0-16.0); Imm Gran Abs Auto 0.02 X10*3/uL (0.00-0.03); Imm Gran Pct Auto 0.2 % (0.0-0.4); Lymphocytes Absolute Auto 3.2 X10*3/uL (1.2-4.9); Lymphocytes Percent Auto 39.1 % (20-40); Mean Corpuscular HGB Conc 32.2 g/dl (31.0-35.0); Mean Corpuscular Hemoglobin 30.3 pg (27.0-33.0); Mean Corpuscular Volume 94.1 fL (80.0-98.0); Mean Platelet Volume 11.2 fL (9.4-12.3); Monocytes Absolute Auto 0.6 X10*3/uL (0.1-1.2); Monocytes Percent Auto 7.6 % (2-11); Neutrophils Percent Auto 49.3 % (45-73); Platelet Count 329 X10*3/uL (160-400); Red Blood Count 4.09 X10*6/uL (4.20-5.50); Red Cell Distribution Width 13.2 % (11.0-16.0); White Blood Count 8.1 X10*3/uL (4.8-10.8)
[2023-09-10 14:32] LABS: Prothrombin Time 11.9 SEC (11.1-13.3)
[2023-09-10 17:08] LABS: Alanine Aminotransferase 13 U/L (0-31); Albumin Level 4.3 g/dL (3.5-5.0); Alkaline Phosphatase 72 U/L (39-117); Anion Gap 13 (12-20); Aspartate Amino Transferase 24 U/L (5-31); Bilirubin Total 0.3 mg/dL (0.0-1.0); Blood Urea Nitrogen 9 mg/dL (9-16); Calcium 10.4 mg/dL (8.4-10.2); Carbon Dioxide 28 mmol/L (22-29); Chloride 104 mmol/L (96-108); Cholesterol 259 mg/dL (<200); Estimated Glomerular Filt Rate > 60; Glucose Random 83 mg/dL (60-115); HDL Cholesterol 58 mg/dL (>40); LDL Cholesterol Calculated 167 mg/dL (<100); Potassium 3.7 mmol/L (3.3-5.1); Sodium 141 mmol/L (135-145); Total Protein 7.7 g/dL (6.5-8.0); Triglycerides 172 mg/dL (<150)
[2023-09-10 17:09] LABS: Vitamin D 25-OH Total 36.1 ng/mL (>30)
[2023-09-10 18:45] LABS: Folate 10.7 ng/mL (> or = 4.0)
[2023-09-11 14:52] LABS: Vitamin B12 367 pg/mL (200-900)
== END 2023-09-10 10:34 | disposition home or self-care (01) ==
LOC: HO.CHCLDS 10:33
PROVIDERS: Visit Provider Family Medicine
DX: K70.31 Alcoholic cirrhosis of liver with ascites (principal); E55.9 Vitamin D deficiency, unspecified; D75.89 Other specified diseases of blood and blood-forming organs
CPT/HCPCS: 36415; 80053; 80061; 82306; 82607; 82746; 85025; 85610

== ENCOUNTER 2023-10-20 13:59 | Outpatient (REF) | payer MEDICAID, SELFPAY ==
[2023-10-20 14:09] LABS: MANUAL DIFF FLAG NO
[2023-10-20 14:24] LABS: Basophils Absolute Auto 0.1 X10*3/uL (0.0-0.2); Basophils Percent Auto 0.8 % (0-2); Eosinophils Absolute Auto 0.1 X10*3/uL (0.0-0.4); Eosinophils Percent Auto 1.5 % (0-4); Hematocrit 39.4 % (37.0-47.0); Hemoglobin 13.1 g/dl (12.0-16.0); Imm Gran Abs Auto 0.02 X10*3/uL (0.00-0.03); Imm Gran Pct Auto 0.2 % (0.0-0.4); Lymphocytes Absolute Auto 3.6 X10*3/uL (1.2-4.9); Lymphocytes Percent Auto 41.8 % (20-40); Mean Corpuscular HGB Conc 33.2 g/dl (31.0-35.0); Mean Corpuscular Hemoglobin 30.5 pg (27.0-33.0); Mean Corpuscular Volume 91.6 fL (80.0-98.0); Mean Platelet Volume 10.2 fL (9.4-12.3); Monocytes Absolute Auto 0.8 X10*3/uL (0.1-1.2); Monocytes Percent Auto 8.8 % (2-11); Neutrophils Percent Auto 46.9 % (45-73); Platelet Count 317 X10*3/uL (160-400); Red Cell Distribution Width 13.2 % (11.0-16.0); White Blood Count 8.5 X10*3/uL (4.8-10.8)
[2023-10-20 14:30] LABS: INTERNATIONAL NORM RATIO 1.1 (0.9-1.1)
[2023-10-20 14:51] LABS: Alanine Aminotransferase 14 U/L (0-31); Albumin Level 4.3 g/dL (3.5-5.0); Alkaline Phosphatase 72 U/L (39-117); Anion Gap 14 (12-20); Aspartate Amino Transferase 22 U/L (5-31); Bilirubin Total 0.4 mg/dL (0.0-1.0); Blood Urea Nitrogen 10 mg/dL (9-16); Calcium 10.3 mg/dL (8.4-10.2); Carbon Dioxide 25 mmol/L (22-29); Chloride 104 mmol/L (96-108); Estimated Glomerular Filt Rate > 60; Glucose Random 96 mg/dL (60-115); Potassium 3.9 mmol/L (3.3-5.1); Sodium 139 mmol/L (135-145); Total Protein 7.5 g/dL (6.5-8.0)
== END 2023-10-20 14:00 | disposition home or self-care (01) ==
LOC: HO.LAB 13:59
PROVIDERS: Visit Provider Internal Medicine
DX: D72.829 Elevated white blood cell count, unspecified (principal); K70.10 Alcoholic hepatitis without ascites
CPT/HCPCS: 36415; 80053; 85025; 85027; 85610

== ENCOUNTER 2023-10-21 11:01 | Outpatient (AMB) | payer MEDICAID, SELFPAY ==
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
[2023-10-21 11:18] VITALS: BP 114/82; PULSE 109; BMI 21.3
== END 2023-10-21 11:40 | disposition home or self-care (01) ==
PROVIDERS: PCP Internal Medicine; Visit Provider Internal Medicine
DX: F10.90 Alcohol use, unspecified, uncomplicated (principal); K70.10 Alcoholic hepatitis without ascites
CPT/HCPCS: 99214

== ENCOUNTER → 2023-10-21 11:01 | Outpatient (BNVA) | payer MEDICAID, SELFPAY | PROVIDERS: PCP Internal Medicine; Visit Provider Internal Medicine | DX: K70.10 Alcoholic hepatitis without ascites (principal); F10.20 Alcohol dependence, uncomplicated | CPT/HCPCS: 99212 ==